=== PATIENT | male | born 1995 | race Caucasian/White ===

== ENCOUNTER 2018-06-18 15:30 | Outpatient (REF) | payer SELFPAY | END 2018-06-18 15:31 | LOC: OM 15:30 | PROVIDERS: Visit Provider Nurse Practitioner Family | DX: Z23 Encounter for immunization (principal) ==

== ENCOUNTER 2019-01-28 17:13 | Emergency (ER) | payer OTHER, SELFPAY ==
[2019-01-28 17:20] VITALS: BP 150/76; PULSE 92; RESP 12; TEMP 36.9; O2SAT 98
--- NOTE | 2019-01-28 18:26 | ED.GENADUL_ITS ---
Discharge Plan Disposition Patient Disposition: HOME Condition: Stable Discharge Details Chief Complaint: Orthopedic Clinical Impression: Knee sprain Primary Care Provider: None,None ED Provider: Abhijit Grayson Home Meds and New Rx's Prescriptions: No Action No Known Home Meds RF: 0 Discharge Instructions Instructions: Knee Sprain (ED) Additional Instructions: 1. Drink plenty of fluids. 2. Continue all medications as prescribed. 3. Acetaminophen 1000mg every 4 hours (up to 5 time a day) and/or ibuprofen 600mg every 6 hours as needed for fever or pain. 4. Activity as tolerated. Ice and elevate when resting Return to the Emergency Department (ED) if your condition worsens, does not improve as expected, or for ANY other concerns. Specifically, return if you have new or uncontrolled pain, worsening fever, difficulty breathing, vomiting, or are unable to drink fluids. Referrals: Dwayne Spear MD [ [facility] STAFF PHYSICIAN] - Discharge Data Discharge Date/Time-TO BE ENTERED AT DEPARTURE: 01/28/19 17:38 Medical Decision Making Presents with new onset left knee pain associated with known previous knee problems. Onset not associate with any atypical motion or trauma. Exam suggestive of an inflammatory process with no evidence of ligamentous laxity, erythema, knee effusion, or bony deformity. Discussed conservative management with activity as tolerated, ice/elevation, and anti-inflammatories. Given an orthopedic referral for reevaluation as needed. Pt evaluated immediately prior to discharge with improved symptoms, normal vital signs, and tolerating PO. The patient feels appropriate for discharge home. Discussed clinical/diagnostic findings. Discharged with a clear plan for outpatient follow up. Given usual and customary return instructions prior to discharge. Medical Records Medical records reviewed: Yes I reviewed the patient's medical records. HPI 23-year-old gentleman with an unremarkable past medical does note that he has had chronic knee problems with bad knee tracking. Presents with increased left knee pain which started today while he was at work. Notices subjective pain and difficulty with full extension of his knee and localizes pain from this to his patellar region. He denies any atypical twisting motions or trauma. He is noted no significant redness, swelling, or subjective fever. Denies any other arthralgias. General Date/Time Provider Initiated Documentation: 01/28/19 17:22 . Related Data Home Medications Medication Instructions Recorded Confirmed Unknown [No Known Home Meds] 01/28/19 01/28/19 Allergies Allergy/AdvReac Type Severity Reaction Status Date / Time No Known Allergies Allergy Verified 01/28/19 17:23 General Stated Complaint: Orthopedic SEEMA: 4 Review of Systems Review of Systems All systems reviewed & are unremarkable except as noted in HPI and below Constitutional Denies fever(s) and Denies night sweats Cardiovascular Denies dyspnea Respiratory Denies dyspnea Musculoskeletal Reports arthralgias (Left knee), Denies joint swelling and Reports limited range of motion PFSH Social History Smoking/Tobacco Use Status: Never Drug use: Never Substance use type: does not use Do you feel safe at home: Yes Do you feel safe in your relationship?: Yes Exam Narrative Exam Narrative: Nursing note and vital signs have been reviewed and noted. GENERAL: alert, active, no acute distress, well -hydrated, well-nourished HEENT: atraumatic/normocephalic, PERRLA, EOMI, conjunctiva clear, external ears/canals normal, nasal mucosa normal NECK: supple, full range of motion CARDIOVASCULAR: nl pulses, no edema PULMONARY: nl effort, no audible wheezing or stridor ABDOMEN: non-distended EXTREMITY: normal muscle tone, all joints with FROM, left knee: No erythema, effusion, or edema appreciated. No LCL or MCL laxity, pain, or tenderness with valgus and varus deformity. Negative anterior drawer. Has prepatellar tenderness and subjective tenderness over the patella tendon. Normal peripheral neurovascular. NUERO: normal mentation, moving all extremities, normal stance and gait, PSYCH: alert and oriented SKIN: no new rashes or lesions Course Vital Signs Temperature 98.4 F 01/28/19 17:20 Pulse 92 H 01/28/19 17:20 Respiratory Rate 12 01/28/19 17:20 Blood Pressure 150/76 H 01/28/19 17:20 Pulse Oximetry 98 01/28/19 17:20 Temperature 98.4 F 01/28/19 17:20 Temperature Source Temporal Artery Scan 01/28/19 17:20 Pulse 92 H 01/28/19 17:20 Respiratory Rate 12 01/28/19 17:20 Respiratory Effort Non-Labored 01/28/19 17:22 Blood Pressure 150/76 H 01/28/19 17:20 Blood Pressure Position Sitting 01/28/19 17:20 Pulse Oximetry 98 01/28/19 17:20 Oxygen Delivery Method Room Air 01/28/19 17:20 Oxygen Flow Rate 0 01/28/19 17:20 Pain Level 5 01/28/19 17:37
== END 2019-01-28 17:38 | disposition home or self-care (01) ==
LOC: ER 17:42
PROVIDERS: Emergency Provider Emergency Medicine
DX: S83.92XA Sprain of unspecified site of left knee, initial encounter (principal); X58.XXXA Exposure to other specified factors, initial encounter
CPT/HCPCS: 99282

== ENCOUNTER 2019-06-05 21:37 | Emergency (ER) | payer OTHER, SELFPAY ==
[2019-06-05 21:42] VITALS: BP 148/80; PULSE 86; RESP 16; TEMP 36.8; O2SAT 99
--- NOTE | 2019-06-05 21:45 | ED.GENADUL_ITS ---
Discharge Plan Disposition Patient Disposition: HOME Condition: Stable Discharge Details Chief Complaint: GenMedical Clinical Impression: Right shoulder pain, Peripheral neuropathy Primary Care Provider: None,None ED Provider: Debbi Bolaños Home Meds and New Rx's Prescriptions: New ibuprofen 600 mg tablet 600 mg PO Q8H PRN (Reason: pain) Qty: 20 RF: 0 Discharge Instructions Instructions: Peripheral Neuropathy (ED), Shoulder Pain (ED) Additional Instructions: Rest and ice your right shoulder as much as possible. Take your right shoulder through gentle range of motion exercises to help with mobility. Limit heavy lifting, carrying, pushing or pulling. You will receive a call from care management regarding a follow-up appointment with a primary care doctor and for referral to orthopedics or for physical therapy if your symptoms do not improve or worsen. Return to the emergency department if you develop any worsening or new concerning symptoms. Discharge Data Discharge Physician: Debbi Bolaños Medical Decision Making 23-year-old male who presents with right shoulder pain for the past few days, worse today now with right arm tingling, pain and sensation of coolness. Denies any known injury. Patient is right handed. Denies any complaint of headache, blurry vision, other extremity weakness or numbness. Patient has tenderness to palpation of his right anterior lateral shoulder with limitation of motion in right shoulder which produces pain. He is neurovascul elvi intact. He has good motor strength in his right upper extremity which appears symmetric to the left but does reproduce pain but with no perceived motor or sensory deficit. Appears likely consistent with a shoulder strain, sprain, tendinitis, arthritis which is causing likely a peripheral neuropathy. Do not see any indication for imaging at this time and patient is agreeable. Patient has not taken anything for pain. Dose of Motrin given here as well as prescription for home. He was placed on care management list to arrange for a follow-up appointment for reevaluation and for referral to physical therapy or orthopedics if his symptoms do not improve or worsen. HPI General Mode of arrival: ambulatory . Date/Time Provider Initiated Documentation: 06/05/19 21:38 . Limitations to Documentation: no limitations . Information obtained by: patient . 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 He states he is right-handed. He denies any known injury. He denies headache, blurry vision, chest pain, shortness of breath. He does admit to intermittent neck pain but denies any known neck injury. He states he has not taken anything for pain. 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 Related Data Home Medications Medication Instructions Recorded Confirmed ibuprofen 600 mg PO Q8H PRN #20 tab 06/05/19 Previous Rx's Medication Instructions Recorded ibuprofen 600 mg PO Q8H PRN #20 tab 06/05/19 Allergies Allergy/AdvReac Type Severity Reaction Status Date / Time No Known Allergies Allergy Verified 06/05/19 21:46 General SEEMA: 4 Review of Systems Review of Systems All systems reviewed & are unremarkable except as noted in HPI and below Constitutional Reports as per HPI, Denies chills and Denies fever(s) Eyes Denies blurry vision ENT Denies dizziness, Denies sore throat and Denies throat swelling Cardiovascular Denies chest pain and Denies dyspnea Respiratory Denies cough and Denies dyspnea Gastrointestinal Denies abdominal pain, Denies diarrhea and Denies vomiting Genitourinary Denies hematuria and Denies dysuria Musculoskeletal Denies back pain, Denies numbness, Reports tingling and Reports other (R shoulder pain ) Integumentary/Breasts Denies lesions and Denies rash Neurologic Denies dizziness, Denies focal weakness, Denies numbness and Reports tingling Allergic/Immunologic Denies throat swelling [facility] Medical History No significant past medical history (Acute) Surgical History Bilateral femoral hernia (Acute) Social History Smoking/Tobacco Use Status: Never Alcohol Intake: current Alcohol Intake frequency: holidays/special occasions only Drug use: Occasionally Substance use type: does not use and marijuana Do you feel safe at home: Yes Do you feel safe in your relationship?: Yes Exam Const General: cooperative, healthy appearing and no acute distress HENMT Head: normal to inspection Face and sinus: normal facial exam Eyes General: appearance normal, both eyes and all related structures EOM: EOM intact bilaterally Neck Neck: normal visual inspection and No submandibular swelling Lymphatic: no lymphadenopathy noted Chest Chest: normal inspection of the chest and no tenderness Resp Effort & Inspection: normal respiratory effort and able to speak in complete sentences Auscultation: clear to auscultation bilaterally Cardio Rate: regular rate Rhythm: regular rhythm GI Inspection: normal to inspection Palpation: soft, not firm, not rigid and nontender Auscultation: normal bowel sounds Skin General skin exam: no rashes or lesions noted Neuro General: alert, awake, oriented x3, moves all extremities and no focal motor deficits Cognition: normal cognition Speech: speech normal Motor: muscle tone normal throughout and strength 5/5 throughout Sensory Exam: no sensory deficits noted DTR's: Rt Triceps: 1+, Lt Triceps: 1+, Rt Biceps: 1+, Lt Biceps: 1+, Rt Brachioradialis: 1+ and Lt Brachioradialis: 1+ Other: Motor/sensory grossly intact bilateral upper extremities. 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 Muscle strength 5/5 bilateral upper extremities. Radial/ulnar/median motor nerve function intact bilaterally. Extrem General: normal capillary refill Other: Right upper extremity held close to body. Tenderness to palpation right anterior and lateral shoulder. Limitation of flexion and abduction in right shoulder due to pain to 60 degrees. Essentially normal internal and external rotation but with reproducible pain. Normal right elbow, wrist and hand exam. Skin normal to inspection bilateral upper extremities without cyanosis, erythema, edema, lesions, rash or trauma. Bilateral radial and ulnar pulses intact. Psych Appearance: grossly normal Mental Status: mental status grossly normal Speech and Movement: speech and movement normal Affect: normal affect
[2019-06-05 21:50] VITALS: RESP 16
[2019-06-05] MEDS: Ibuprofen 600 MG TAB PO (22:07)
[2019-06-05 22:14] VITALS: BP 148/80; PULSE 86; RESP 16; TEMP 36.8; O2SAT 99
== END 2019-06-05 22:15 | disposition home or self-care (01) ==
PROVIDERS: Emergency Provider Physician Assistant
DX: M25.511 Pain in right shoulder (principal); G62.9 Polyneuropathy, unspecified
CPT/HCPCS: 99282; 99283

== ENCOUNTER 2019-07-21 16:56 | Emergency (ER) | payer OTHER, SELFPAY ==
--- NOTE | 2019-07-21 16:59 | NUR.NOTE ---
Nursing Note:pt developed a sore throat Saturday morning since then sore throat has progressed to the point where PT states it is painful to breath. pt is also having difficulty swallowing
[2019-07-21 17:00] VITALS: BP 154/87; PULSE 88; RESP 16; TEMP 36.8; O2SAT 98
--- NOTE | 2019-07-21 17:44 | W.ED.GENAD ---
Discharge Plan Disposition Patient Disposition: HOME Condition: Stable Discharge Details Chief Complaint: Sorethroat Clinical Impression: Pharyngitis, Acute bronchospasm Primary Care Provider: Edel Abdalla ED Provider: Debbi Bolaños Home Meds and New Rx's Prescriptions: New prednisone 20 mg tablet See Rx Instructions .ROUTE .COMPLEX Qty: 12 RF: 0 No Action cholecalciferol (vitamin D3) 4,000 unit capsule 4,000 unit PO DAILY RF: 0 loratadine [Claritin] 10 mg tablet 10 mg PO DAILY PRNRF: 0 ibuprofen 600 mg tablet 600 mg PO Q8H PRN (Reason: pain) Qty: 20 RF: 0 Discharge Instructions Instructions: Pharyngitis (ED), Bronchospasm (ED) Additional Instructions: Alternate Tylenol and Motrin as needed and directed for pain. Use the inhaler as needed and directed for shortness of breath or wheezing. Take the steroids until finished. Follow-up with your primary care doctor in 1 week for reevaluation. Return to the emergency department if you develop any worsening or new concerning symptoms. Discharge Data Discharge Date/Time-TO BE ENTERED AT DEPARTURE: 07/21/19 19:15 Discharge Physician: Debbi Bolaños Medical Decision Making 24-year-old male who presents with sore throat, painful swallowing and difficulty breathing due to his sore throat for the past 2 days. Denies fever, cough, chest pain headache or neck pain. Vitals within normal limits. Afebrile. Rapid strep negative. Posterior pharyngeal erythema but no exudates or tonsillar edema or evidence of abscess. No drooling or trismus. He has scattered wheezing on lung exam but this appears to be possibly due to noisy breathing or upper airway. He has no evidence of stridor and is speaking in full sentences. Will give a DuoNeb, dose of prednisone and ibuprofen and reassess. As he has no fever and appears nontoxic, do not see an indication for chest x-ray and patient agreeable. Patient feels much better after DuoNeb and meds. He feels better to go back to work here. He was given prescription for prednisone and an albuterol inhaler to go. Discussed that his symptoms could be viral in nature, but if he develops fever or his symptoms worsen, he is advised to follow-up with his primary care doctor or return to the emergency department for reevaluation and to consider chest x-ray at that time and whether he needs antibiotics if he symptoms worsen. He is in agreement with this plan. HPI General Mode of arrival: ambulatory. Date/Time Provider Initiated Documentation: 07/21/19 17:28. Limitations to Documentation: no limitations. Information obtained by: patient. HPI Narrative: Patient is a 24-year-old male who presents with sore throat for the past 2 days. He states it is painful to swallow and breathe due to the sore throat pain. He denies any known fever, headache, neck pain, cough. He has not taken any medication for his symptoms. He also admits to nasal congestion starting short while ago. 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 Related Data Home Medications Medication Instructions Recorded Confirmed ibuprofen 600 mg PO Q8H PRN #20 tab 06/05/19 07/21/19 cholecalciferol (vitamin D3) 4,000 4,000 unit PO DAILY 07/03/19 07/21/19 unit capsule loratadine 10 mg tablet 10 mg PO DAILY PRN 07/20/19 07/21/19 prednisone See Rx Instructions .ROUTE 07/21/19 .COMPLEX #12 tab Previous Rx's Medication Instructions Recorded ibuprofen 600 mg PO Q8H PRN #20 tab 06/05/19 prednisone See Rx Instructions .ROUTE 07/21/19 .COMPLEX #12 tab Allergies Allergy/AdvReac Type Severity Reaction Status Date / Time diphenhydramine AdvReac confusion Verified 07/21/19 17:02 [From Benadryl] General Stated Complaint: Sorethroat SEEMA: 4 Review of Systems Review of Systems All systems reviewed & are unremarkable except as noted in HPI and below Constitutional Reports as per HPI, Denies chills and Denies fever(s) Eyes Denies blurry vision ENT Denies dizziness, Reports sore throat and Denies throat swelling Cardiovascular Denies chest pain and Denies dyspnea Respiratory Denies cough and Denies dyspnea Gastrointestinal Denies abdominal pain, Denies diarrhea and Denies vomiting Genitourinary Denies hematuria and Denies dysuria Musculoskeletal Denies back pain and Denies numbness Integumentary/Breasts Denies lesions and Denies rash Neurologic Denies dizziness, Denies focal weakness and Denies numbness Allergic/Immunologic Denies throat swelling PFSH Medical History History of bipolar disorder (Acute) No significant past medical history (Acute) Right shoulder pain (Acute) Surgical History Bilateral femoral hernia (Acute) Family History Mother Anxiety Father Anxiety Paternal Grandfather Lung cancer Social History (Updated 07/20/19 @ 14:53 by Lucero King RN) Smoking/Tobacco Use Status: Never Alcohol Intake: current Alcohol Intake frequency: a few times a month Alcohol type: beer and hard liquor Drug use: Daily Substance use type: marijuana Household members: none Housing: apartment 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 [employer] Do you feel safe at home: Yes Do you feel safe in your relationship?: Yes Exam Const General: cooperative, healthy appearing and no acute distress HENMT Head: normal to inspection Ears: hearing grossly normal bilaterally, external ears normal and TM's normal bilaterally General nose exam: external nose normal Face and sinus: normal facial exam Mouth: oral mucosae normal Throat: uvula midline, no peritonsillar masses and posterior oropharynx abnormal edema and erythema; no exudates Eyes General: appearance normal, both eyes and all related structures EOM: EOM intact bilaterally Neck Neck: normal visual inspection and No submandibular swelling Lymphatic: no lymphadenopathy noted Chest Chest: normal inspection of the chest and no tenderness Resp Effort & Inspection: normal respiratory effort and able to speak in complete sentences Auscultation: wheezes scattered wheezes Cardio Rate: regular rate Rhythm: regular rhythm Skin General skin exam: no rashes or lesions noted Neuro General: alert, awake and oriented x3 Cognition: normal cognition Speech: speech normal Motor: muscle tone normal throughout Sensory Exam: no sensory deficits noted Extrem General: normal to inspection, full ROM, normal capillary refill, no calf tenderness bilaterally and no edema Psych Appearance: grossly normal Mental Status: mental status grossly normal Speech and Movement: speech and movement normal Affect: normal affect Course Vital Signs Temperature 98.2 F 07/21/19 17:00 Pulse 88 07/21/19 17:00 Respiratory Rate 16 07/21/19 17:00 Blood Pressure 154/87 H 07/21/19 17:00 Pulse Oximetry 98 07/21/19 17:00 Temperature 98.2 F 07/21/19 17:00 Temperature Source Skin 07/21/19 17:00 Pulse 88 07/21/19 17:00 Respiratory Rate 16 07/21/19 17:00 Respiratory Effort 07/21/19 17:02 Blood Pressure 154/87 H 07/21/19 17:00 Blood Pressure Position Sitting 07/21/19 17:00 Pulse Oximetry 98 07/21/19 17:00 Oxygen Delivery Method Room Air 07/21/19 17:00 Oxygen Flow Rate 0 07/21/19 17:00 Pain Level 6 07/21/19 17:00 Lab/Test Results Lab/Test Results: 07/21/19 17:07 Tonsil - Not Specified Streptococcus Screen (ELMO) - Pending POC Strep Test-MIRIAN(Rapid) Start: 07/21/19 17:03 Freq: .Rapid Strep Test Status: Active Protocol: Document 07/21/19 17:36 (Rec: 07/21/19 17:36 [id number]) Strep test-MIRIAN(Rapid)-POC POC-Strep test-MIRIAN (Rapid) Negative POC-Strep test-MIRIAN (Rapid) Negative
[2019-07-21] MEDS: Albuterol/Ipratropium 3 ML UPD VIAL UPD (18:00)
[2019-07-21] MEDS: predniSONE 20 MG TAB 60 MG PO (18:01)
[2019-07-21] MEDS: Ibuprofen 600 MG TAB PO (18:01)
[2019-07-21] MEDS: Albuterol HFA 8 GM 60 PUFF INH IH (19:19)
[2019-07-21 19:21] VITALS: BP 154/87; PULSE 88; RESP 16; TEMP 36.8; O2SAT 98
== END 2019-07-21 19:15 | disposition home or self-care (01) ==
PROVIDERS: Emergency Provider Physician Assistant; PCP Nurse Practitioner
DX: J02.9 Acute pharyngitis, unspecified (principal); J98.01 Acute bronchospasm
CPT/HCPCS: 87880; 94640; 99283; 87081; J7512; J7620

== ENCOUNTER 2019-09-11 08:54 | Outpatient (CLI) | payer OTHER, SELFPAY ==
--- NOTE | 2019-09-14 10:53 | W.HOLTRPT ---
Holter Monitor Report Holter Monitor Note: Is a 24-hour Holter monitor ordered for the indication of presyncope ?The patient was predominantly in normal sinus rhythm with an average heart rate of 85 bpm (minimum 62 bpm, maximum 136 bpm) ?There were no episodes of supraventricular tachycardia. There were rare (less than 1%) premature atrial contractions. ?There were no episodes of ventricular tachycardia. There were rare (less than 1%) single ventricular ectopic beats. ?There were no episodes of atrial fibrillation, no episodes of high degree heart block, and no pauses greater than 3 seconds. ?Patient triggered events were associated with normal sinus rhythm or sinus tachycardia. Date of service: 09/14/19 Time of Service: 10:53
== END 2019-09-11 09:14 ==
PROVIDERS: PCP Nurse Practitioner; Visit Provider Nurse Practitioner
DX: R55 Syncope and collapse (principal); I49.1 Atrial premature depolarization; I49.3 Ventricular premature depolarization
CPT/HCPCS: 93225

== ENCOUNTER 2019-09-14 09:42 | Outpatient (CLI) | payer OTHER, SELFPAY | END 2019-09-14 10:02 | PROVIDERS: PCP Nurse Practitioner; Visit Provider Nurse Practitioner | DX: R55 Syncope and collapse (principal); I49.1 Atrial premature depolarization; I49.3 Ventricular premature depolarization | CPT/HCPCS: 93226 ==

== ENCOUNTER 2019-09-28 01:42 | Outpatient (CLI) | payer OTHER, SELFPAY ==
--- NOTE | 2019-09-28 14:08 | DI.US_ITS ---
APPROVED REPORT EXAM: Comprehensive 2D, Doppler, and color-flow Echocardiogram Patient Location: Out-Patient Manager Personnel Selection: Alannah Bunn [facility] ([place]) Rhythm: NSR Indications: pre syncope and collapse R55. pre syncope Conclusion Left Ventricle : The left ventricle is normal size. The left ventricular systolic function is normal. There is normal left ventricular wall thickness. There is normal LV segmental wall motion. LVEF is 5 5-60%. The left ventricular diastolic function is normal. Right Ventricle : The right ventricle is normal size. The right ventricular systolic function appears normal. Atria : The left atrium size is normal. The right atrium size is normal. Aortic Valve : The aortic valve is normal in structure. Aortic valve is trileaflet. There is no aorti c valvular stenosis. No aortic regurgitation is present. Mitral Valve : Mitral valve leaflets are mildly thickened. No evidence of mitral valve stenosis. Triv ial to mild mitral regurgitation. Tricuspid Valve : The tricuspid valve is normal in structure. Mild tricuspid regurgitation. Great Vessels : IVC is top normal in size and collapses >50% with inspiration. The estimated RVSP is 19-22 mmHg. There is no prior echocardiogram available for comparison. Wall motion Left Ventricle The left ventricle is normal size. The left ventricular systolic function is normal. There is normal left ventricular wall thickness. There is normal LV segmental wall motion. The left ventricular diast olic function is normal. LVEF is 55-60%. Right Ventricle The right ventricle is normal size. The right ventricular systolic function appears normal. Atria The left atrium size is normal. The right atrium size is normal. Aortic Valve The aortic valve is normal in structure. Aortic valve is trileaflet. There is no aortic valvular sten osis. No aortic regurgitation is present. Mitral Valve Mitral valve leaflets are mildly thickened. No evidence of mitral valve stenosis. Trivial to mild mau ral regurgitation. Tricuspid Valve The tricuspid valve is normal in structure. Mild tricuspid regurgitation. Pulmonic Valve Pulmonic valve is not well visualized. Mild pulmonic regurgitation. Great Vessels The aortic root is normal in size. IVC is top normal in size and collapses >50% with inspiration. The estimated RVSP is 19-22 mmHg. Pericardium There is no pericardial effusion. 2D Dimensions IVSd 0.75 cm M: 0.6-1.2 LV EDV A2C 91.30 mL PWd 0.90 cm M: 0.6 - 1.2 LV EDV A4C 89.60 mL LVDd 4.45 cm M: 4.2 - 5.8 LA Volume Index A2C 15.82 mL/m2 LVDs 3.10 cm M: 2.5 - 4.0 LA Volume Index A4C 13.09 mL/m2 Aortic Root 2.60 cm M: 3.1 - 3.7 LA Volume Index Biplane 14.76 mL/m2 RA Area A4C 10.10 cm2 LA Area A4C 11.24 cm2 LVOT 2.00 cm (M/F) 1.5-2.5 LA Area A2C 12.67 cm2 Ascending Aorta 2.58 cm M: 2.6 - 3.4 EF AP4 56.25 % LVEF (Teich) 57.95 % EF AP2 58.05 % LVEF (Sosa's) 58.16 % M: 52 - 72 EF BP 58.16 % LV Volume 69.94 mL M: 62 - 150 LV Volume Index 35.50 mL/m2 M: 34 - 74 FS 30.35 % LV Diastology E/A Ratio 2.5 MED E' 0.14 (>0.07 m/s) LV E/e MED 6.15 (<14) LAT E' 0.16 (>0.1 m/s) LV E/e LAT 5.45 (<14) Aortic Valve LVOT Area 3.17 cm2 LVOT Peak Romulo. 0.95 m/s LVOT Mean Romulo. 0.70 m/s LVOT Peak Gr. 3.75 mmHg MARVA Vmax Index 1.37 cm2/m2 LVOT Mean Gr. 2.15 mmHg LVOT VTI 0.15 m MARVA Mean Romulo. Index 1.35 cm2/m2 AoV Peak Romulo. 1.14 (0.5-1.3 m/s) AoV Mean Romulo. 0.83 m/s AO Peak GR. 5.16 mmHg AO Mean GR. 3.00 (<5 mmHg) AO VTI 0.22 (0.18-0.25 m) MARVA (VTI) 2.68 (2.5-4.5 cm2) MARVA (VTI) Index 1.36 cm/m2 Mitral Valve MV E Max Romulo. 0.88 (0.4-1.3 m/s) MV A Velocity 0.35 (0.4-1.3 m/s) E/A Ratio 2.44 MV Decel. Time 160.75 (160-240 msec) MV PHT 46.62 msec MVA PHT 4.70 cm2 Pulmonary Valve PV Peak Velocity 1.12 (0.5-1.5 m/s) Tricuspid Valve TR P. Velocity 2.18 m/s TV Regurg Vmax 2.18 m/s RAP Estimate 3.00 mmHg RVSP 22.07 mmHg TR P. Gradient 19.05 mmHg
== END 2019-09-28 02:02 ==
PROVIDERS: PCP Nurse Practitioner; Visit Provider Nurse Practitioner
DX: R55 Syncope and collapse (principal); I49.1 Atrial premature depolarization
CPT/HCPCS: 93306

== ENCOUNTER 2020-01-15 13:03 | Emergency (ER) | payer OTHER, SELFPAY ==
[2020-01-15 13:13] VITALS: BP 122/77; PULSE 102; RESP 18; TEMP 36.5; O2SAT 100
[2020-01-15 13:15] VITALS: RESP 18
--- NOTE | 2020-01-15 13:15 | DI.RAD_ITS ---
EXAM: XR CHEST 2V PA LATERAL CLINICAL HISTORY: cough, SOB with running TECHNIQUE: 2D digital imaging was performed. COMPARISON: No exams were available for comparison FINDINGS: MEDIASTINUM: Normal. HEART: Normal. PULMONARY VASCULATURE: Normal. LUNGS: Clear. PLEURAL SPACE: No pleural effusion or pneumothorax. BONE:Normal. OTHER FINDINGS:Normal. IMPRESSION: No acute pulmonary findings. DATA REPOSITORY: RADIATION DOSE DELIVERED:
[2020-01-15] MEDS: Albuterol/Ipratropium 3 ML UPD VIAL 6 ML UPD (13:20)
--- NOTE | 2020-01-15 13:28 | ED.GENADUL_ITS ---
Discharge Plan Disposition Patient Disposition: HOME Condition: Good Discharge Details Chief Complaint: SOB Clinical Impression: Asthma exacerbation Primary Care Provider: Edel Abdalla ED Provider: Boy Badillo Home Meds and New Rx's Prescriptions: No Action cholecalciferol (vitamin D3) 4,000 unit capsule 4,000 unit PO DAILY RF: 0 loratadine [Claritin] 10 mg tablet 10 mg PO DAILY PRNRF: 0 ibuprofen 600 mg tablet 600 mg PO Q8H PRN (Reason: pain) Qty: 20 RF: 0 Discharge Instructions Instructions: Asthma (ED) Additional Instructions: At this time I feel that your symptoms are likely an exacerbation of exercise- induced asthma. Please take 2 puffs from the inhaler as needed every 4-6 hours. Please rest tonight. If you notice any worsening of your symptoms, or any new symptoms such as vomiting, diarrhea, fever, chills, shortness of breath, chest pain, numbness, weakness, or fainting , please return immediately to the emergency department for reevaluation. Please follow up with your primary care provider as soon as possible for reassessment and reevaluation. As always, it wa s a pleasure participating in your medical care today. Referrals: Edel Abdalla, VALERY [Primary Care Provider] - Medical Decision Making <Boy Badillo DO - Last Filed: 01/15/20 15:41> This is a 24-year-old male with a past medical history of what he suspects to be undiagnosed asthma, no other significant medical problems who does not smoke tobacco but does smoke marijuana, who presents today for burning in his chest mild shortness of breath with mild cough. Patient was running the [employer] did a ride race outside of [facility], making tables, while during the race and right after the running activity he became short of breath, with mild chest tightness, and felt the burning in his chest. He states that this is similar to what is happened before during exercise and activity, especially outside. He came to the ER for further evaluation. He states in the past breathing treatments have helped his symptoms. He denies any hemoptysis, fever, chills, numbness, tingling, weakness. He denies any trauma, or IV or illicit drug use. Physical exam demonstrates minimal wheeze in the left lower lung field. Bedside ultrasound shows no evidence of pneumothorax, no pericardial effusion, or focal abnormality for cardiac movement. EKG shows no evidence of STEMI. No signs of Brugada syndrome, or [id number]. Symptoms inconsistent with STEMI, or pericarditis. No clinical risk factors of endocarditis. Symptoms appear consistent with his previous episodes of what appears to be exercise-induced reactive airway disease. We will give breathing treatments, GI cocktail. We will get a formal chest x-ray. EKG 13: 20 Rate 87, intervals normal, sinus rhythm, no significant ST elevations or depres sions, no T wave inversions except for V1, no evidence of STEMI, no evidence of significant delta wave, or evidence of Brugada syndrome. No signs of epsilon wave. <Debbi Boalños DO - Last Filed: 01/15/20 13:57> I did not see or participate in the care of this patient. HPI <Boy Badillo DO - Last Filed: 01/15/20 15:41> General Date/Time Provider Initiated Documentation: 01/15/20 13:03 . HPI Narrative: T his is a 24-year-old male with a past medical history of what he suspects to be undiagnosed asthma, no other significant medical problems who does not smoke tobacco but does smoke marijuana, who presents today for burning in his chest mild shortness of breath with mild cough. Patient was running the I did a ride race outside of [facility], making tables, while during the race and right after the running activity he became short of breath, with mild chest tightness, and felt the burning in his chest. He states that this is similar to what is happened before during exercise and activity, especially outside. He came to the ER for further evaluation. He states in the past breathing treatments have helped his symptoms. He denies any hemoptysis, fever, chills, numbness, tingling, weakness. He denies any trauma, or IV or illicit drug use. Related Data Home Medications Medication Instructions Recorded Confirmed ibuprofen 600 mg PO Q8H PRN #20 tab 06/05/19 01/15/20 cholecalciferol (vitamin D3) 4,000 4,000 unit PO DAILY 07/03/19 01/15/20 unit capsule loratadine 10 mg tablet 10 mg PO DAILY PRN 07/20/19 01/15/20 Previous Rx's Medication Instructions Recorded ibuprofen 600 mg PO Q8H PRN #20 tab 06/05/19 Allergies Allergy/AdvReac Type Severity Reaction Status Date / Time diphenhydramine AdvReac confusion Verified 01/15/20 13:19 [From Benadryl] General Stated Complaint: SOB SEEMA: 3 Review of Systems <Boy Badillo DO - Last Filed: 01/15/20 15:41> All systems reviewed & are unremarkable except as noted in HPI and below PFSH <Boy Badillo DO - Last Filed: 01/15/20 15:41> Surgical History Bilateral femoral hernia (Acute) Social History (Updated 09/07/19 @ 15:24 by Mee Irvin RN) Smoking/Tobacco Use Status: Never Alcohol Intake: current Alcohol Intake frequency: holidays/special occasions only Alcohol type: beer and hard liquor Drug use: Daily Substance use type: marijuana Caregiver/Support person: No Household members: none Housing: apartment Communication Needs: None 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 3.ENT: Atraumatic external nose and ears. Moist MM. Neck: Symmetric, trachea midline, No thyromegaly. 4.CVS: +S1/S2, No murmurs or gallops. Peripheral pulses 2+ and equal in all extremities. Brisk capillary refill in all extremities. 5.RESP: Unlabored respiratory effort. No rales or rhonchi, minimal small wheeze noted in the left lower lung cook. 6.GI: Soft, Nontender/Nondistended, No hepatosplenomegaly. No guarding or rebou nd. 7.MSK: Normocephalic/Atraumatic, Extremities w/o deformity or ttp No cyanosis or clubbing, Normal movement of all extremities 8.Skin: Warm, Dry. No rashes or lesions. 9.Neuro: shuttler car II-XII grossly intact. Sensation grossly intact, no focal neurologic deficits. 10.Psych: (AAO) x3. Appropriate mood and affect Course <Boy Badillo, DO - Last Filed: 01/15/20 15:41> Vital Signs Vital signs: Vital Signs Temperature 36.5 C 01/15/20 13:13 Pulse 102 H 01/15/20 13:13 Respiratory Rate 18 01/15/20 13:13 Blood Pressure 122/77 01/15/20 13:13 Pulse Oximetry 100 01/15/20 13:13 Temperature 36.5 C 01/15/20 13:13 Temperature Source Temporal Artery Scan 01/15/20 13:13 Pulse 102 H 01/15/20 13:13 Respiratory Rate 18 01/15/20 13:15 Respiratory Effort 01/15/20 13:15 Respiratory Depth Normal 01/15/20 13:15 Respiratory Pattern Normal 01/15/20 13:15 Blood Pressure 122/77 01/15/20 13:13 Blood Pressure Position Sitting 01/15/20 13:13 Pulse Oximetry 100 01/15/20 13:13 Oxygen Delivery Method Room Air 01/15/20 13:13 Oxygen Flow Rate 0 01/15/20 13:13
[2020-01-15] MEDS: Albuterol HFA 8 GM 60 PUFF INH IH (16:05)
== END 2020-01-15 16:06 | disposition home or self-care (01) ==
PROVIDERS: Emergency Provider Student in an Organized Health Care Education/Training Program; PCP Nurse Practitioner
DX: J45.901 Unspecified asthma with (acute) exacerbation (principal)
CPT/HCPCS: 93005; 94640; 99284; 71046; 93010; J7620

== ENCOUNTER 2020-08-24 23:07 | Emergency (ER) | payer OTHER, SELFPAY ==
[2020-08-24 23:16] VITALS: BP 144/83; PULSE 89; RESP 20; TEMP 36.5; O2SAT 96
--- NOTE | 2020-08-24 23:24 | ED.GENADUL_ITS ---
Discharge Plan Disposition Patient Disposition: HOME Condition: Stable Discharge Details Clinical Impression: Sprain of right shoulder Primary Care Provider: Edel Abdalla ED Provider: Bakari Key Home Meds and New Rx's Prescriptions: Continued hydroxyzine HCl 25 mg tablet 25 mg PO QHS PRN (Reason: nausea and vomiting) Qty: 30 RF: 0 propranolol 10 mg tablet 10 mg PO BID Qty: 180 RF: 3 cholecalciferol (vitamin D3) 4,000 unit capsule 4,000 unit PO DAILY RF: 0 loratadine [Claritin] 10 mg tablet 10 mg PO DAILY PRNRF: 0 albuterol sulfate 90 mcg/actuation HFA aerosol inhaler 2 puff IH Q6H PRNRF: 0 sumatriptan succinate 100 mg tablet See Rx Instructions PO .COMPLEX Qty: 9 RF: 3 ibuprofen 600 mg tablet 600 mg PO Q8H PRN (Reason: pain) Qty: 20 RF: 0 Discharge Instructions Instructions: Shoulder Pain (ED) Additional Instructions: if pain continues in a week follow up with your primary care provider and orthopedics if you have severe worsening pain or new symptoms such as difficulty breathing return to the emergency department Medical Decision Making 25 yo male who states he has had chronic problems with his right shoulder was reaching up with the right arm tonight and felt a pop in the right shoulder. Denies falling or other injuries, has pain only in the right shoulder. His shoulder appears symmetrical to the left, is able to range in all directions to about 90 degrees then limited by pain but I am able to passively fully range the shoulder, normal distal pulses, no warmth or redness or other findings to suggest septic joint. Suspect either strain vs rotator cuff injury unlikely dislocation or fx but will obtain xray to further evaluate xray negative for acute findings, remains stable, suspect sprain will d/c and advised f/u with pcp and return precautions given Differential Diagnosis Differential Diagnosis: strain, sprain, dislocation Imaging Data Radiologic Study: Attestation: I personally reviewed and interpreted this imaging study as follows: Imaging: X-Ray My impression: no acute findings HPI General Mode of arrival: ambulatory . Date/Time Provider Initiated Documentation: 08/24/20 23:12 . Limitations to Documentation: no limitations . Information obtained by: patient . History of Present Illness 25 year old M presents to the emergency department with the chief complaint of right shoulder pain, described as moderate, and it has been constant. Rest improves symptom(s), Movement worsens symptoms . Patient notes no other symptoms.. Patient did receive the following treatments prior to arrival, none Related Data Home Medications Medication Instructions Recorded Confirmed ibuprofen 600 mg PO Q8H PRN #20 tab 06/05/19 05/05/20 cholecalciferol (vitamin D3) 100 4,000 unit PO DAILY 07/03/19 05/05/20 mcg (4,000 unit) capsule loratadine 10 mg tablet 10 mg PO DAILY PRN 07/20/19 05/05/20 hydroxyzine HCl 25 mg tablet 25 mg PO QHS PRN #30 tab 01/18/20 05/05/20 albuterol sulfate 90 mcg/actuation 2 puff IH Q6H PRN 03/09/20 05/05/20 aerosol inhaler sumatriptan succinate 100 mg tablet See Rx Instructions PO .COMPLEX #9 03/09/20 05/05/20 tab propranolol 10 mg tablet 10 mg PO BID #180 tab 05/05/20 05/05/20 Previous Rx's Medication Instructions Recorded ibuprofen 600 mg PO Q8H PRN #20 tab 06/05/19 hydroxyzine HCl 25 mg tablet 25 mg PO QHS PRN #30 tab 01/18/20 sumatriptan succinate 100 mg tablet See Rx Instructions PO .COMPLEX #9 03/09/20 tab propranolol 10 mg tablet 10 mg PO BID #180 tab 05/05/20 Allergies Allergy/AdvReac Type Severity Reaction Status Date / Time diphenhydramine AdvReac confusion Verified 01/18/20 12:33 [From Benadryl] General Stated Complaint: Orthopedic SEEMA: 4 Review of Systems All systems reviewed & are unremarkable except as noted in HPI and below Constitutional Constitutional: Denies chills, Denies fever(s) and Denies weakness Cardiovascular Cardiovascular: Denies chest pain and Denies dyspnea Respiratory Respiratory: Denies dyspnea Gastrointestinal Gastrointestinal: Denies abdominal pain, Denies nausea and Denies vomiting Musculoskeletal Musculoskeletal: Denies joint swelling Neurologic Neurologic: Denies weakness [facility] Medical History (Updated 08/24/20 @ 23:50 by Bakari Key MD) Asthma new dx January 2020 History of bipolar disorder Insomnia Migraine headache with aura No significant past medical history Right shoulder pain Surgical History S/P bilateral inguinal hernia repair Family History Mother Anxiety Migraine COPD (chronic obstructive pulmonary disease) Father Anxiety Paternal Grandfather Lung cancer Social History Smoking/Tobacco Use Status: Never Alcohol Intake: current Alcohol Intake frequency: holidays/special occasions only Alcohol type: beer and hard liquor Drug use: Daily Substance use type: marijuana Caregiver/Support person: No Household members: none Housing: apartment Communication Needs: None 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 [employer] Seatbelt use: always Water heater temp set <120 deg: Yes Working smoke detector in home: Yes Fire extinguisher in home: Yes Carbon monox detector in home: Yes Firearms in home: No Do you feel safe at home: Yes Do you feel safe in your relationship?: Yes Exam Const General: no acute distress Orientation: alert HENMT Head: normal to inspection Ears: external ears normal General nose exam: external nose normal Mouth: moist mucous membranes Eyes General: appearance normal, both eyes and all related structures Neck Neck: normal visual inspection Resp Effort & Inspection: normal respiratory effort and able to speak in complete sentences Cardio Rate: regular rate Skin General skin exam: no rashes or lesions noted Neuro General: patient alert and patient oriented x3 Extrem General: normal to inspection Psych Mental Status: mental status grossly normal Course Vital Signs Vital signs: Vital Signs Temperature 36.5 C 08/24/20 23:16 Pulse 89 08/24/20 23:16 Respiratory Rate 08/24/20 23:16 Blood Pressure 144/83 H 08/24/20 23:16 Pulse Oximetry 96 08/24/20 23:16 Temperature 36.5 C 08/24/20 23:16 Temperature Source Tympanic 08/24/20 23:16 Pulse 89 08/24/20 23:16 Respiratory Rate 20 08/24/20 23:16 Respiratory Effort 08/24/20 23:20 Blood Pressure 144/83 H 08/24/20 23:16 Pulse Oximetry 96 08/24/20 23:16 Oxygen Delivery Method Room Air 08/24/20 23:16 Oxygen Flow Rate 0 08/24/20 23:16 Pain Level 3 08/24/20 23:20
[2020-08-24] MEDS: Acetaminophen 500 MG TAB 1000 MG PO (23:26)
--- NOTE | 2020-08-24 23:35 | DI.RAD_ITS ---
EXAM: XR SHOULDER RT COMPLETE 2+V CLINICAL HISTORY: right shoulder pain. TECHNIQUE: 2D digital imaging was performed. COMPARISON: No exams were available for comparison FINDINGS: BONES: No acute fracture is present. No bony destructive lesion is seen. JOINTS: No dislocation present. SOFT TISSUE: Normal. IMPRESSION: Unremarkable radiographs of the right shoulder. DATA REPOSITORY: RADIATION DOSE DELIVERED:
--- NOTE | 2020-08-25 16:04 | DI.VRAD_ITS ---
PROCEDURE INFORMATION: Exam: XR Right Shoulder Exam date and time: 08/24/2020 11:32 PM Age: 25 years old Clinical indication: Patient HX: Pain in right shoulder x6 hours after raising arm anteriorly TECHNIQUE: Imaging protocol: XR Right shoulder. Views: 2 or more views. COMPARISON: No relevant prior studies available. FINDINGS: Bones/joints: No acute fracture. No dislocation. Soft tissues: Unremarkable. IMPRESSION: No acute osseous abnormality. Dictated and Authenticated by: Hernesto Sauer MD. Ordering:HANNA Villegas MD
== END 2020-08-25 00:10 | disposition home or self-care (01) ==
PROVIDERS: Emergency Provider Emergency Medicine; PCP Nurse Practitioner
DX: S43.491A Other sprain of right shoulder joint, initial encounter (principal); X50.1XXA Overexertion from prolonged static or awkward postures, initial encounter
CPT/HCPCS: 99283; 73030; L3650

== ENCOUNTER 2020-11-01 13:29 | Outpatient (CLI) | payer OTHER, SELFPAY ==
[2020-11-02 09:54] LABS: Lyme Ab w Rflx to Lyme Confirm Negative (Negative)
[2020-11-03 23:52] LABS: Anaplasma phagocytophilum Negative (Negative); B. miyamotoi PCR Negative (Negative); Babesia divergens/MO-1 Negative (Negative); Babesia duncani Negative (Negative); Babesia microti Negative (Negative); Ehrlichia chaffeensis Negative (Negative); Ehrlichia ewingii/canis Negative (Negative); Ehrlichia muris eauclairensis Negative (Negative)
== END 2020-11-01 13:49 ==
PROVIDERS: PCP Nurse Practitioner; Visit Provider Nurse Practitioner
DX: R53.83 Other fatigue (principal); M25.59 Pain in other specified joint
CPT/HCPCS: 87798; 86618

== ENCOUNTER 2020-11-28 02:12 | Outpatient (CLI) | payer OTHER, SELFPAY ==
[2020-11-29 12:38] LABS: COVID-19 RT-PCR UVMMC Result Negative (Negative)
== END 2020-11-28 02:32 ==
PROVIDERS: PCP Nurse Practitioner; Visit Provider Student in an Organized Health Care Education/Training Program
DX: Z11.52 Encounter for screening for COVID-19 (principal); Z01.818 Encounter for other preprocedural examination
CPT/HCPCS: U0003

== ENCOUNTER 2020-12-01 06:08 | Day surgery (SDC) | payer OTHER, SELFPAY ==
[2020-12-01] VITALS (9 sets, daily range): BP systolic 87–114; BP diastolic 38–72; PULSE 67–84; RESP 14–18; TEMP 36.5–37; O2SAT 95–98
[2020-12-01] MEDS: Lactated Ringers 1,000 ML 100 ML IV ×3 (07:26→11:15)
--- NOTE | 2020-12-01 07:26 | ROE_ITS ---
Date of service: 12/01/20 Time of Service: 08:00 Operative Note Operative Note DATE OF PROCEDURE: 12/01/20 PRE-OP DIAGNOSIS: Right shoulder: 1. SLAP tear 2. LHB tendinopathy 3. Bursitis 4. Instability POST-OP DIAGNOSIS: same PROCEDURE: Right: 1. Anterior labral capsulorrhaphy, CPT# 58720. This involved anterior stabilization through suture anchors of the capsule low labral ligamentous complex involving the AIGHL and MGHL. 2. Open biceps tenodesis, CPT# 00011. This involved reattaching the long head of the biceps tendon to the proximal humerus in the sub-pectoral area of the bic ipital groove at the correct tension. 3. Extensive debridement, CPT# 84494. This involved using arthroscopic hand instruments, power instruments, and radiofrequency instruments to release to release the long head of the biceps tendon and debride areas of labral tearing, synovitis, partial rotator cuff tearing, and chondromalacia about glenoid rim within the glenohumeral joint anteriorly, superiorly and posteriorly. 4. Subacromial decompression with partial acromioplasty, CPT# 79437. This involved using arthroscopic power instruments and a radiofrequency wand to complete a bursectomy and smooth the undersurface of the acromion. The legal executive assistant was medically required in order to help assist in techniques above, which require positioning the arm, holding the arthroscope, and manipulating multiple instruments and sutures at the same time. This cannot be done without the help of an experienced legal executive assistant. SURGEON: Ronen Tamayo FOUNDER CHAIRMAN AND CHIEF CREATIVE OFFICER: Licha Hernandez ANESTHESIA: GETA and regional ESTIMATED BLOOD LOSS: 10 PATHOLOGY: none sent COMPLICATIONS: None Patient was transported to: PACU Patient's condition: stable Implants: Arthrex: 2.9 mm PushLock anchor x2 and Unicortical Proximal Biceps Tenodesis Button Indications: The patient was diagnosed with the above conditions and appropriately indicated for surgical intervention. Please see complete medical record for details. Findings: Exam under anesthesia: Hyper physiologic range of motion. Mild sulcus sign. Forward flexion past 160 degrees, external rotation past 90 degrees, internal rotation 90 degrees. Subluxation especially anteriorly without dislocation. Glenohumeral joint: Moderate synovitis anteriorly and superiorly. Small type 2 SLAP tear. No obvious labral tear anteriorly or posteriorly. Mild long head of biceps tendon inflammation and injection especially about the bicipital groove. No humeral head Hill-Sachs defect. Minimal anterior supraspinatus articular sided fraying. Subacromial space: Moderate bursitis and minimal acromial bone spur. Intact rotator cuff. Procedure Description: In the operating room, general anesthesia was induced. Bilateral shoulders were examined. The patient was positioned in the beachchair position. All bony prominences were well-padded. Preoperative antibiotics were administered. The shoulder was prepped and draped in the usual sterile fashion. The correct patient, procedure, and side of the procedure were all verified prior to incision. Starting through the posterior portal a standard complete diagnostic arthroscopy was performed of the glenohumeral joint including inspection of the long head of the biceps, anterior and superior labrum, subscapularis tendon, supraspinatus and infraspinatus tendons, and axillary recess. The glenoid and humeral head cartilage as well as the posterior labrum were inspected from an anterior viewing portal. Significant findings and interventions noted above. The biceps tendon was released from the superior labrum using arthroscopic scissors. The shoulder was drained of arthroscopic fluid and attention turned to the open procedure. 10 cc of 0.25% bupivacaine with epinephrine was infiltrated about a 2 to 3 cm longitudinal incision at the inferior margin of the pectoralis major localized over the long head of the biceps tendon. Blunt and sharp dissection were used to expose the tendon in the bicipital groove. The tendon was brought out of the wound and kept off the skin on top of a blue towel. The correct location for sub-pectoral fixation was localized, prepped with a rasp, and then drilled with a 3.2 mm drill pin in a unicortical fashion. Using a fiber loop suture the tendon was prepped from the musculotendinous junction a few centimeters proximal. The excess tendon was amputated. The free suture ends were then passed through the unicortical button implant. The drill pin was removed and the implant was placed into the humeral intramedullary canal. The button was flipped and the sutures were tensioned bringing the tendon down to bone. Tension and fixation were then tested and found to be appropriate. The free ends of the suture were were tied compressing tendon to bone. The wound was copiously irrigated with normal saline. Subcutaneous tissue was closed using 3- 0 Monocryl in a buried interrupted fashion. Skin was closed using 3-0 Monocryl in a buried subcuticular running fashion. Skin glue was applied over the incision. Mastisol was applied about the incision. The incision was covered with Telfa, gauze, and covered with a Tegaderm dressing. The arthroscope was then redirected back into the glenohumeral joint. A second lower and more lateral anterior portal was established under spinal needle localization to the anterior inferior glenoid rim passing just superior to the subscapularis tendon. This was dilated and then a 7 mm rigid cannula inserted. Another 7 mm rigid cannula was inserted in the standard anterior higher portal. Using a combination of tissue liberator's and elevators as well as graspers the anterior labrum was probed and found to be stable. The AIGHL mobilized to the planned anterior inferior anchor as well as the MGHL to a more central anterior anchor. Liberator's and elevators were carefully used to dissect the labrum from the glenoid rim just enough for appropriate anchor placement and tissue healing including the capsular labral complex is partial anterior labral plication for the patient's chronic instability. A suture passing lasso was used to secure the AIG HL and capsular tissue about the anterior inferior labrum at the planned site and a suture tape FiberLink in cinch mode secured. The appropriate drill guide was placed on the glenoid rim, predrilled, the suture tape passed through the eyelet of a push lock anchor, and then the anchor secu red down to bone with the correct tension on the tissue. Is repeated more superiorly and centrally including the labrum and [facility] L tissue with a second push lock anchor. The anterior capsulorrhaphy was probed found to be stable. The arm was brought past 75 degrees external rotation with tension especially on the [facility] L repair with the arm in 45 degrees abduction but no loss of tissue fixation or suture anchor securely. The arthroscope was then brought to the anterior portal and a rigid cannula transferred to the posterior portal. The posterior labrum and capsule was inspected and probed. There was not significant additional posterior instability nor significant tissue for additional posterior plication repair so it was omitted. The joint was drained of arthroscopic fluid. Starting through the posterior portal, the arthroscope was directed into the subacromial space. A lateral 50 yard line lateral portal was created. A combination of power instruments and a radiofrequency ablator were used to debride bursitis anteriorly, posteriorly, and laterally as well as expose and smooth bone spurring on the undersurface of the acromion. The coracoacromial ligament was preserved. The bursectomy was completed viewing laterally and working from posteriorly and the rotator cuff was thoroughly inspected with findings noted above. The shoulder was drained of arthroscopic fluid. All portal sites were copiously irrigated. These incisions were closed using 3-0 Monocryl in a buried fashion, covered with Mastisol, Steri-Strips, Xeroform, dry gauze, and ABDs. The dressings were covered and secured with Medipore tape. The operative extremity was placed into a sling for immobilization. The patient awoke from anesthesia without complication and was transferred to the recovery room in a stable condition.
[2020-12-01] MEDS: ceFAZolin 2 GM/50 ML BAG IVPB (08:02)
[2020-12-01] MEDS: Bupivacaine 0.25% Pres-Free 30 ML VIAL (09:49)
[2020-12-01] MEDS: EPINEPHrine 1 MG/ML AMP pres-free (09:49)
[2020-12-01] MEDS: EPINEPHrine 30 MG/30 ML VIAL (09:52)
[2020-12-01] MEDS: oxyCODONE 5 MG TAB PO (13:04)
--- NOTE | 2020-12-01 13:53 | W.PM.DSUDISC ---
Discharge Plan Disposition Patient Disposition: HOME Condition: Stable Discharge Details Reason For Visit: Right shoulder surgery Attending Provider: Ronen Tamayo Primary Care Provider: Edel Abdalla Home Meds and New Rx's Prescriptions: New naproxen 250 mg tablet 250 - 500 mg PO BID PRN (Reason: Moderate pain or swelling) Qty: 60 RF: 0 aspirin 81 mg tablet,delayed release (DR/EC) 81 mg PO DAILY 14 Days Qty: 14 RF: 0 oxycodone 5 mg tablet 5 - 10 mg PO Q4H PRN (Reason: moderate to severe pain) Qty: 16 RF: 0 Continued albuterol sulfate 90 mcg/actuation HFA aerosol inhaler 2 puff IH Q4H PRN (Reason: shortness of breath or wheezing) Qty: 18 RF: 12 hydroxyzine HCl 25 mg tablet 25 mg PO QHS PRN (Reason: nausea and vomiting) Qty: 30 RF: 0 propranolol 10 mg tablet 10 mg PO BID Qty: 180 RF: 3 cholecalciferol (vitamin D3) 4,000 unit capsule 4,000 unit PO DAILY RF: 0 loratadine [Claritin] 10 mg tablet 10 mg PO DAILY PRNRF: 0 sumatriptan succinate 100 mg tablet See Rx Instructions PO .COMPLEX Qty: 9 RF: 3 Discontinued ibuprofen 600 mg tablet 600 mg PO Q8H PRN (Reason: pain) Qty: 20 RF: 0 Discharge Instructions Additional Instructions: Surgery: Shoulder arthroscopy with anterior labral capsulorrhaphy, biceps tenodesis, extensive debridement, and subacromial decompression. Activity: You should keep your arm at your side in a neutral position at all times except for physical therapy. Do not try to lift or raise your arm using your own muscles. You should use the sling whenever you are out of the house. At home it is best to remove the sling and rest the arm on a pillow at your side or support the operative side with your other hand. You may allow the arm to dangle at your side. Please perform daily elbow wrist and hand range of motion. You may use the right arm lightly for essential activities of daily living. A physical therapy prescription will be sent electronically to begin in 3 weeks. Protocol: No external rotation x3 weeks then 30 degrees external rotation weeks 3-6 and then 60 degrees external rotation weeks 6-10 and then full Max forward elevation 90 degrees weeks 0-6 and then 120 degrees week 6-10 and then full Prescriptions: Aspirin 81 mg take 1 daily to prevent a blood clot for 2 weeks Naproxen 250 mg take 1-2 every 12 hours with a meal as needed for moderate pain Oxycodone 5 mg take 1-2 every 4-6 hours as needed for severe pain You may use [id number] Tylenol (acetaminophen) as needed for mild pain. These pain medications may be taken all at once or in different combinations as needed. Also, recommend Colace (docusate) as a stool softener as surgery and pain medicine cause constipation. Dressings: Remove shoulder bandage after 3 days. Leave the sticky Steri-Strips in place until they fall off or remove them after you shower. Cover the incisions with Band-Aids or leave them open to air. The biceps bandage (inside upper arm) is glued on separately. You may leave this one on a few days longer if it is difficult to remove. There is also glue underneath this bandage that can be left in place until it peels off. You may shower after 5 days. Follow-up: 10-[address] Tamayo (12/13/19 at 10AM) You may take off the leg compression stockings this evening at home. You may also leave them on a few days longer if you have a history of leg swelling or edema. Let us know right away if you develop any redness, drainage, fevers, chest pain, or trouble breathing. Do not drink alcohol or drive for at least 24 hours after anesthesia. Please call the office during business hours with any questions or concerns. Stand Alone Forms: Anes.Nerve Block Instructions, DSU Post op Instructions Referrals: Ronen Tamayo MD [ [facility] STAFF PHYSICIAN] - Discharge Orders Discharge Orders: Discharge Order (Routine); Ordered 12/01/20 Ordered By: Ronen Tamayo DS: Diagnosis Discharge Diagnosis (1) Instability of right shoulder joint: Status: Acute (2) Tendonitis of long head of biceps brachii of right shoulder: Status: Acute (3) SLAP lesion of right shoulder: Status: Acute
== END 2020-12-01 14:13 | disposition home or self-care (01) ==
PROVIDERS: PCP Nurse Practitioner; Visit Provider Student in an Organized Health Care Education/Training Program
PROC: (CPT 29805; principal; 2020-12-01 07:30)
DX: M25.311 Other instability, right shoulder (principal); M75.21 Bicipital tendinitis, right shoulder; S43.431A Superior glenoid labrum lesion of right shoulder, initial encounter; M75.81 Other shoulder lesions, right shoulder
CPT/HCPCS: 29806; 29823; 29826; 23430; G8918; 76942; J0171; J0690; J1100; J1885; J2001; J2250; J2370; J2405; J2704

== ENCOUNTER 2021-11-23 22:00 | Emergency (ER) | payer OTHER, SELFPAY ==
[2021-11-23 22:05] VITALS: BP 151/81; PULSE 105; RESP 16; TEMP 37.2; O2SAT 97
--- NOTE | 2021-11-23 22:13 | ED.GENADUL_ITS ---
Discharge Plan Disposition Patient Disposition: HOME Condition: Stable Discharge Details Clinical Impression: Otitis media Primary Care Provider: Edel Abdalla ED Provider: Karen Sepulveda Home Meds and New Rx's Prescriptions: New amoxicillin-pot clavulanate [Augmentin] 875-125 mg tablet 1 tab PO BID 7 Days Qty: 14 RF: 0 No Action hydroxyzine HCl 25 mg tablet 25 mg PO QHS PRN (Reason: nausea and vomiting) Qty: 30 RF: 0 cholecalciferol (vitamin D3) 4,000 unit capsule 4,000 unit PO DAILY RF: 0 loratadine [Claritin] 10 mg tablet 10 mg PO DAILY PRNRF: 0 sumatriptan succinate 100 mg tablet See Rx Instructions PO .COMPLEX Qty: 9 RF: 3 albuterol sulfate 90 mcg/actuation HFA aerosol inhaler 2 puff IH Q4H PRN (Reason: shortness of breath or wheezing) Qty: 18 RF: 12 naproxen 250 mg tablet 250 - 500 mg PO BID PRN (Reason: Moderate pain or swelling) Qty: 60 RF: 0 Discharge Instructions Instructions: Ear Infection (ED) Additional Instructions: Take Flonase daily 1-2 sprays in each nostril. Take an over the counter decongestant as well. Take the antibiotic as prescribed. Please take Tylenol or Ibuprofen with food every 4-6 hours as needed for pain and swelling. Referrals: Edel Abdalla, DEPARTMENT STORE MANAGER [Primary Care Provider] - 1 week Medical Decision Making 26-year-old male presents to the ER with chief complaint of bilateral ear pain right worse than the left which began yesterday. He denies any fever runny nose. He reports feeling a popping sound to his right ear and increased pain. He has been taking Tylenol for the pain with little to no relief. On initial exam he does have some bulging to his bilateral tympanic membranes, and some fluid noted behind. Slightly erythemic. Is a past medical history of asthma, migraine. Given Augmentin here in the department and 2 tablets to go. Discussed home care including taking Flonase and an oral decongestant. Clinical exam does not show significant bilateral otitis media however this could be early. HPI General Mode of arrival: ambulatory . Date/Time Provider Initiated Documentation: 11/23/21 22:03 . Limitations to Documentation: no limitations . Information obtained by: patient and RN notes reviewed . HPI Narrative: 26-year-old male presents to the ER with chief complaint of bilateral ear pain right worse than the left which began yesterday. He denies any fever runny nose. He reports feeling a popping sound to his right ear and increased pain. He has been taking Tylenol for the pain with little to no relief. On initial exam he does have some bulging to his bilateral tympanic membranes, and some fluid noted behind. Slightly erythemic. Is a past medical history of asthma, migraine. Related Data Home Medications Medication Instructions Recorded Confirmed cholecalciferol (vitamin D3) 100 4,000 unit PO DAILY 07/03/19 11/23/21 mcg (4,000 unit) capsule loratadine 10 mg tablet 10 mg PO DAILY PRN 07/20/19 11/23/21 hydroxyzine HCl 25 mg tablet 25 mg PO QHS PRN #30 tab 01/18/20 11/23/21 naproxen 250 - 500 mg PO BID PRN #60 tab 12/01/20 11/23/21 albuterol sulfate 90 mcg/actuation 2 puff IH Q4H PRN #18 g 07/10/21 11/23/21 aerosol inhaler sumatriptan succinate 100 mg tablet See Rx Instructions PO .COMPLEX #9 09/12/21 11/23/21 tab amoxicillin-pot clavulanate 1 tab PO BID 7 Days #14 tab 11/23/21 [Augmentin] Previous Rx's Medication Instructions Recorded hydroxyzine HCl 25 mg tablet 25 mg PO QHS PRN #30 tab 01/18/20 naproxen 250 - 500 mg PO BID PRN #60 tab 12/01/20 albuterol sulfate 90 mcg/actuation 2 puff IH Q4H PRN #18 g 07/10/21 aerosol inhaler sumatriptan succinate 100 mg tablet See Rx Instructions PO .COMPLEX #9 09/12/21 tab amoxicillin-pot clavulanate 1 tab PO BID 7 Days #14 tab 11/23/21 [Augmentin] Allergies Allergy/AdvReac Type Severity Reaction Status Date / Time diphenhydramine AdvReac confusion Verified 11/23/21 22:08 [From Benadryl] General Stated Complaint: EarProblem SEEMA: 5 Review of Systems All systems reviewed & are unremarkable except as noted in HPI and below ENT Ears, Nose, Mouth, and Throat: Reports as per HPI and Reports otalgia PFSH All Active Problems (Updated 11/23/21 @ 22:19 by Karen Sepulveda) Otitis media (Acute) Bilateral knee pain (Acute) Light headed (Acute) Routine general medical examination at a health care facility (Acute) Dizzy spells (Acute) Migraine headache without aura (Acute) Chronic headache (Acute) Encounter for screening for other viral diseases (Acute) SLAP lesion of right shoulder (Acute) Tendonitis of long head of biceps brachii of right shoulder (Acute) Fatigue (Acute) Joint ache (Acute) Instability of right shoulder joint (Acute) Insomnia (Acute) Migraine headache with aura (Acute) History of bipolar disorder (Acute) Medical History Asthma new dx January 2020 History of shingles 10/2020 No significant past medical history Surgical History S/P bilateral inguinal hernia repair Family History Mother Anxiety Migraine COPD (chronic obstructive pulmonary disease) Father Anxiety Paternal Grandfather Lung cancer Social History Smoking/Tobacco Use Status: Never Smoking risk assessment performed?: Yes Alcohol Intake: current Alcohol Intake frequency: holidays/special occasions only Alcohol type: beer and hard liquor Drug use: Daily Substance use type: marijuana Details: pt reports having 11/30/20, via smoke. 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 Appears stated age. Normal body habitus. Head: Normocephalic, no trauma. Eyes: Pupils PERRL, Red reflex noted, EOM's intact. Eyelids symmetrical without lesions, discharge, or swelling. ENT: Bilateral TM's bulging, slightly erythemic external ear normal to inspection, no mastoid TTP, swelling, or erythema, Nasal turbinates WNL, no nasal discharge. Normal dentition, Posterior pharynx WNL, no exudate. Course Vital Signs Vital signs: Vital Signs Temperature 37.2 C 11/23/21 22:05 Pulse 105 H 11/23/21 22:05 Respiratory Rate 16 11/23/21 22:05 Blood Pressure 151/81 H 11/23/21 22:05 Pulse Oximetry 97 11/23/21 22:05 Temperature 37.2 C 11/23/21 22:05 Temperature Source Skin 11/23/21 22:05 Pulse 105 H 11/23/21 22:05 Respiratory Rate 16 11/23/21 22:05 Respiratory Effort Non-Labored 11/23/21 22:10 Blood Pressure 151/81 H 11/23/21 22:05 Blood Pressure Position Sitting 11/23/21 22:05 Pulse Oximetry 97 11/23/21 22:05 Oxygen Delivery Method Room Air 11/23/21 22:05 Oxygen Flow Rate 0 11/23/21 22:05 Pain Level 2 11/23/21 22:05
[2021-11-23] MEDS: Amoxicillin 875/Clav. 125 TAB PO (22:26)
[2021-11-23] MEDS: Amox. 875/Clav. 125, 2 TABS/BTL 1 TAB PO (22:27)
== END 2021-11-23 22:29 | disposition home or self-care (01) ==
PROVIDERS: Emergency Provider Registered Nurse Emergency; PCP Nurse Practitioner
DX: H66.93 Otitis media, unspecified, bilateral (principal)
CPT/HCPCS: 99283

== ENCOUNTER 2022-05-08 15:40 | Outpatient (REF) | payer OTHER, SELFPAY ==
[2022-05-08 14:22] LABS: Calculated LDL 78 mg/dL (<100); Cholesterol 171 mg/dL (<200); HDL Cholesterol 57 mg/dL (40-60); Triglyceride 183 mg/dL (<150)
[2022-05-09 09:40] LABS: Hepatitis C Ab w Rflx HCV PCR Negative (Negative)
[2022-05-09 10:00] LABS: HIV-1/2 Ag & Ab Screen Negative (Negative)
== END 2022-05-08 15:41 | disposition home or self-care (01) ==
LOC: LBN 15:40
PROVIDERS: PCP Nurse Practitioner; Visit Provider Nurse Practitioner
DX: Z13.220 Encounter for screening for lipoid disorders (principal); Z11.59 Encounter for screening for other viral diseases; Z11.4 Encounter for screening for human immunodeficiency virus [HIV]
CPT/HCPCS: 80061; 86803; 87389

== ENCOUNTER 2022-09-05 17:53 | Outpatient (REF) | payer OTHER, SELFPAY ==
[2022-09-05 17:07] LABS: Source Nasal/Nares
[2022-09-05 17:42] LABS: COVID-19 PCR Negative (Negative)
== END 2022-09-05 17:54 | disposition home or self-care (01) ==
LOC: LBN 17:53
PROVIDERS: Family Medicine; PCP Nurse Practitioner; Visit Provider Nurse Practitioner Family
DX: Z20.822 Contact with and (suspected) exposure to COVID-19 (principal)
CPT/HCPCS: 87635

== ENCOUNTER 2023-05-30 13:53 | Emergency (ER) | payer OTHER, SELFPAY ==
[2023-05-30 14:00] VITALS: BP 165/81; PULSE 101; RESP 16; TEMP 37.8; O2SAT 96
--- NOTE | 2023-05-30 14:15 | DI.CT_ITS ---
Exam(s) CT ABDOMEN PELVIS W EXAM: CT ABDOMEN PELVIS W CLINICAL HISTORY: RLQ abd Pain, Fever, R/O APPY TECHNIQUE: Imaging Protocol: Axial computed tomography images with coronal and sagittal reformatted images were created and reviewed CONTRAST MATERIAL: Intravenous: Omnipaque 350 Contrast volume:100 mL Oral: No COMPARISON: No exams were available for comparison FINDINGS: ABDOMEN: Lung Bases: Mild dependent atelectasis. Liver: Normal density. No measurable mass. Portal, Superior Mesenteric, and Splenic Veins: Unremarkable. Gallbladder and Biliary Tract: No radiodense calculus or dilation. Pancreas: Normal density, no abnormal calcifications or inflammatory process. Spleen: Normal. Adrenals: No masses seen. Kidneys: Normal size, contour and axis. No radiodense stones or obstructive uropathy. No masses seen. Abdominal Aorta: Abdominal portion non-dilated. Bowel: No evidence of bowel obstruction. Question of mild thickening of the wall of the distal stoma ch. Appendix is unremarkable. Peritoneal Cavity: No ascites, collection or mesenteric inflammatory response. No free air. Lymph Nodes: Within normal limits. Bones: Within normal limits for the patient's age. There is L5 spondylolysis and grade 1 spondylolis thesis of L5 on S1. Soft Tissues: Unremarkable. PELVIS: Bladder: Symmetric distention, no gross wall thickening. Reproductive Organs: Unremarkable as visualized. Lymph Nodes: Within normal limits. Bones: Within normal limits for the patient's age. IMPRESSION: 1. Normal appendix. 2. No evidence of nephrolithiasis or hydronephrosis. 3. Question of mild thickening of the wall of the distal stomach. This may be due to underdistention . Gastritis cannot be excluded. Please correlate clinically. 4. Findings were discussed with Karen Sepulveda at 3:36 p.m. on 05/30/2023. RADIATION DOSE DELIVERED: Total DLP DATA REPOSITORY: All CT scans at this facility are submitted to the National Radiology Data Registry (NRDR) Dose Index Registry (DIR) with the [employer] ([employer]). RADIATION OPTIMIZATION: All CT scans at this facility use at least one of these dose optimization te chniques: automated exposure control; mA and/or kV adjustment per patient size (includes targeted exa ms where dose is matched to clinical indication); or iterative reconstruction.
[2023-05-30] MEDS: Ondansetron 4 MG/2 ML VIAL IVP (14:34)
[2023-05-30] MEDS: Normal Saline 1,000 ML 1000 ML IV ×2 (14:34→15:45)
[2023-05-30 14:35] LABS: Abs Immature Grans 0.02 10^3/uL (0.0-0.06); Absolute Basophil Count 0.08 10^3/uL (0.0-0.2); Absolute Eosinophil Count 0.06 10^3/uL (0.0-0.7); Absolute Lymphocyte Count 1.23 10^3/uL (1.2-3.4); Absolute Monocyte Count 0.52 10^3/uL (0.1-0.8); Absolute Neutrophil Count 3.99 10^3/uL (1.2-6.7); Basophils % 1.4; HGB 16.1 g/dL (13.5-17.5); Immature Grans % 0.3; Lymphocytes % 20.8; MCH 29.5 pg (27.0-33.0); MCHC 34.3 % (32.0-36.0); MCV 86 fL (80-95); MPV 9.7 fL (8.0-11.0); Monocytes % 8.8; Neutrophils % 67.7; Platelet Count 246 10^3/uL (130-400); RBC 5.46 10^6/uL (4.36-5.78); RDW 11.6 % (11.8-14.1); RDW-SD 36.5 fL
[2023-05-30] MEDS: MORPHine 4 MG/ML SYR IVP (14:35)
--- NOTE | 2023-05-30 14:36 | ED.GENADUL_ITS ---
Discharge Plan Disposition Patient Disposition: Home Condition: Improving Discharge Details Clinical Impression: Abdominal pain Primary Care Provider: Edel Abdalla ED Provider: Fina Hurtado Home Meds and New Rx's Prescriptions: New omeprazole 40 mg capsule,delayed release(DR/EC) 40 mg PO DAILY Qty: 30 0RF Continued hydroxyzine HCl 25 mg tablet 25 mg PO QHS PRN (Reason: nausea and vomiting) Qty: 30 0RF cholecalciferol (vitamin D3) 4,000 unit capsule 4,000 unit PO DAILY loratadine [Claritin] 10 mg tablet 10 mg PO DAILY PRN sumatriptan succinate 100 mg tablet See Rx Instructions PO .COMPLEX Qty: 9 3RF Rx Instructions: take 1 tab at onset of headache; if no relief, may repeat 1 tab after at least 2 hrs; max = 2 tabs/24 hrs PO albuterol sulfate 90 mcg/actuation HFA aerosol inhaler 2 puff IH Q4H PRN (Reason: shortness of breath or wheezing) Qty: 18 12RF naproxen 250 mg tablet 250 - 500 mg PO BID PRN (Reason: Moderate pain or swelling) Qty: 60 0RF Discharge Instructions Instructions: Abdominal Pain (ED) Additional Instructions: Advance diet as tolerated start with clear liquids drinking at least 6 to 8 glasses daily to stay well-hydrated Referrals: Edel Abdalla NP [Primary Care Provider] - Medical Decision Making <Karen Sepulveda NP - Last Filed: 05/30/23 16:28> 27-year-old male presents to the ER with a chief complaint of right lower quadrant abdominal pain which began early this morning. He reports that its gotten worse throughout the day. He reports nausea no vomiting no diarrhea. He is slightly febrile upon arrival. Slightly tachycardic. No history of a bdominal surgeries. He has had an shoulder surgery in the past. Other past medical history includes migraines, bipolar, insomnia. On exam he is tender in the right lower quadrant with palpation. Abdomen work-up ordered including lactate. Lactate is over 2. Liter of normal saline form Zofran for morphine ordered. Urinalysis. CT abdomen pelvis with IV contrast. CBC shows no leukocytosis, no left shift, initial lactate 2.2, CMP within normal limits however glucose 124 total protein 8.3 urinalysis shows urine pH 8.5 no leukocytes no nitrites no blood no evidence of kidney stone. I do suspect appendicitis differential diagnosis includes gastroenteritis, bowel obstruction, UTI. Care is to be handed off to oncoming provider Fina Hurtado AQUATICS INSTRUCTOR pending repeat lactate level after second liter of normal saline and dispo. This text was generated using [employer] system, please disregard any oddities of phrase or misspellings. Medical Records Medical records reviewed: Yes I reviewed the patient's medical records. Lab Data Lab results reviewed: Yes I reviewed the patient's lab results. Labs: Laboratory Tests Range/Units 05/30/23 05/30/23 05/30/23 14:17 14:17 14:17 WBC (4.4-10.8) 10^3/uL 5.90 RBC (4.36-5.78) 10^6/uL 5.46 Hgb (13.5-17.5) g/dL 16.1 Hct (40.0-50.0) % 47.0 MCV (80-95) fL 86 MCH (27.0-33.0) pg 29.5 MCHC (32.0-36.0) % 34.3 RDW (11.8-14.1) % 11.6 L Plt Count (130-400) 10^3/uL 246 MPV (8.0-11.0) fL 9.7 Immature Gran % 0.3 Neutrophils % 67.7 Lymphocytes % 20.8 Monocytes % 8.8 Eosinophils % 1.0 Basophils % 1.4 Nucleated RBC % (0.0-0.3) % 0.0 Absolute Neutrophils (1.2-6.7) 10^3/uL 3.99 Absolute Lymphocytes (1.2-3.4) 10^3/uL 1.23 Absolute Monocytes (0.1-0.8) 10^3/uL 0.52 Absolute Eosinophils (0.0-0.7) 10^3/uL 0.06 Absolute Basophils (0.0-0.2) 10^3/uL 0.08 VBG Lactate (0.6-1.4) mmol/L 2.2 H* Sodium (136-145) mmol/L 142 Potassium (3.5-5.1) mmol/L 3.5 Chloride (98-107) mmol/L 104 Carbon Dioxide (21.0-32.0) mmol/L 28.9 Anion Gap (3-11) mmol/L 9.1 BUN (7-18) mg/dL 11 Creatinine (0.70-1.30) mg/dL 1.1 Est GFR (CKD-EPI 2020) (mL/min/1.73m2) 94.36 Glucose (74-106) mg/dL 124 H Calcium (8.5-10.1) mg/dL 9.6 Magnesium (1.8-2.4) mg/dL 2.1 Total Bilirubin (0.2-1.0) mg/dL 0.6 AST (15-37) U/L 20 ALT (16-63) U/L 28 Alkaline Phosphatase (46-116) U/L 74 Total Protein (6.4-8.2) g/dL 8.3 H Albumin (3.4-5.0) g/dL 4.8 Lipase (16-77) U/L 28 Urine Color (Yellow) Urine Clarity (Clear) Urine pH (5-8) Ur Specific [place] (1.005-1.025) Urine Protein (Negative) mg/dL Urine Ketones (Negative) mg/dL Urine Blood (Negative) Urine Nitrite (Negative) Urine Bilirubin (Negative) Urine Urobilinogen (Up to 0.2) mg/dL Ur Leukocyte Esterase (Negative) Urine Glucose (Negative) mg/dL Range/Units 05/30/23 15:24 WBC (4.4-10.8) 10^3/uL RBC (4.36-5.78) 10^6/uL Hgb (13.5-17.5) g/dL Hct (40.0-50.0) % MCV (80-95) fL MCH (27.0-33.0) pg MCHC (32.0-36.0) % RDW (11.8-14.1) % Plt Count (130-400) 10^3/uL MPV (8.0-11.0) fL Immature Gran % Neutrophils % Lymphocytes % Monocytes % Eosinophils % Basophils % Nucleated RBC % (0.0-0.3) % Absolute Neutrophils (1.2-6.7) 10^3/uL Absolute Lymphocytes (1.2-3.4) 10^3/uL Absolute Monocytes (0.1-0.8) 10^3/uL Absolute Eosinophils (0.0-0.7) 10^3/uL Absolute Basophils (0.0-0.2) 10^3/uL VBG Lactate (0.6-1.4) mmol/L Sodium (136-145) mmol/L Potassium (3.5-5.1) mmol/L Chloride (98-107) mmol/L Carbon Dioxide (21.0-32.0) mmol/L Anion Gap (3-11) mmol/L BUN (7-18) mg/dL Creatinine (0.70-1.30) mg/dL Est GFR (CKD-EPI 2020) (mL/min/1.73m2) Glucose (74-106) mg/dL Calcium (8.5-10.1) mg/dL Magnesium (1.8-2.4) mg/dL Total Bilirubin (0.2-1.0) mg/dL AST (15-37) U/L ALT (16-63) U/L Alkaline Phosphatase (46-116) U/L Total Protein (6.4-8.2) g/dL Albumin (3.4-5.0) g/dL Lipase (16-77) U/L Urine Color (Yellow) Yellow Urine Clarity (Clear) Clear Urine pH (5-8) 8.5 H Ur Specific [place] (1.005-1.025) 1.015 Urine Protein (Negative) mg/dL Negative Urine Ketones (Negative) mg/dL Negative Urine Blood (Negative) Negative Urine Nitrite (Negative) Negative Urine Bilirubin (Negative) Negative Urine Urobilinogen (Up to 0.2) mg/dL 0.2 Ur Leukocyte Esterase (Negative) Negative Urine Glucose (Negative) mg/dL Negative <Fina Hurtado, AQUATICS INSTRUCTOR - Last Filed: 05/30/23 19:27> 27-year-old male presents to the ER with a chief complaint of right lower quadrant abdominal pain which began early this morning. He reports that its gotten worse throughout the day. He reports nausea no vomiting no diarrhea. He is slightly febrile upon arrival. Slightly tachycardic. No history of abdom inal surgeries. He has had an shoulder surgery in the past. Other past medical history includes migraines, bipolar, insomnia. On exam he is tender in the right lower quadrant with palpation. Abdomen work-up ordered including lactate. Lactate is over 2. Liter of normal saline form Zofran for morphine ordered. Urinalysis. CT abdomen pelvis with IV contrast. CBC shows no leukocytosis, no left shift, initial lactate 2.2, CMP within normal limits however glucose 124 total protein 8.3 urinalysis shows urine pH 8.5 no leukocytes no nitrites no blood no evidence of kidney stone. I do suspect appendicitis differential diagnosis includes gastroenteritis, bowel obstruction, UTI. Care is to be handed off to oncoming provider Fina Hurtado AQUATICS INSTRUCTOR pending repeat lactate level after second liter of normal saline and dispo. This text was generated using [employer] dictation system, please disregard any oddities of phrase or misspellings. After 2 L of fluid patient's lactic acid normalized to 0.8. He was given 40 mg of IV Protonix he had improvement in his symptoms and has remained hemodynamically stable he is tolerating p.o. and safe for discharge to home HPI <Karen Sepulveda NP - Last Filed: 05/30/23 16:28> General Mode of arrival: ambulatory . Date/Time Provider Initiated Documentation: 05/30/23 14:22 . Limitations to Documentation: no limitations . Information obtained by: patient, RN notes reviewed and old records reviewed . HPI Narrative: 27-year-old male presents to the ER with a chief complaint of right lower quadrant abdominal pain which began early this morning. He reports that its gotten worse throughout the day. He reports nausea no vomiting no diarrhea. He is slightly febrile upon arrival. Slightly tachycardic. No history of abdominal surgeries. He has had an shoulder surgery in the past. Other past medical history includes migraines, bipolar, insomnia. On exam he is tender in the right lower quadrant with palpation. Related Data Home Medications Medication Instructions Recorded Confirmed cholecalciferol (vitamin D3) 100 4,000 unit PO DAILY 07/03/19 05/30/23 mcg (4,000 unit) capsule loratadine 10 mg tablet (Claritin) 10 mg PO DAILY PRN 07/20/19 05/30/23 hydroxyzine HCl 25 mg tablet 25 mg PO QHS PRN nausea and 01/18/20 05/30/23 vomiting #30 tabs naproxen 250 mg tablet 250 - 500 mg PO BID PRN Moderate 12/01/20 05/30/23 pain or swelling #60 tabs albuterol sulfate 90 mcg/actuation 2 puff inhalation Q4H PRN 07/10/21 05/30/23 aerosol inhaler shortness of breath or wheezing #18 grams sumatriptan succinate 100 mg tablet See Rx Instructions PO .COMPLEX #9 05/07/22 05/30/23 tabs omeprazole 40 mg capsule,delayed 40 mg PO DAILY #30 caps 05/30/23 release Previous Rx's Medication Instructions Recorded hydroxyzine HCl 25 mg tablet 25 mg PO QHS PRN nausea and 01/18/20 vomiting #30 tabs naproxen 250 mg tablet 250 - 500 mg PO BID PRN Moderate 12/01/20 pain or swelling #60 tabs albuterol sulfate 90 mcg/actuation 2 puff inhalation Q4H PRN 07/10/21 aerosol inhaler shortness of breath or wheezing #18 grams sumatriptan succinate 100 mg tablet See Rx Instructions PO .COMPLEX #9 05/07/22 tabs omeprazole 40 mg capsule,delayed 40 mg PO DAILY #30 caps 05/30/23 release Allergies Allergy/AdvReac Type Severity Reaction Status Date / Time diphenhydramine AdvReac confusion Verified 05/30/23 14:02 [From Benadryl] cashews Allergy Intermediate itching Uncoded 05/30/23 14:02 General Stated Complaint: Abd Prob SEEMA: 3 Review of Systems <Karen Sepulveda NP - Last Filed: 05/30/23 16:28> All systems reviewed & are unremarkable except as noted in HPI and below Gastrointestinal Gastrointestinal: Reports abdominal pain, Denies diarrhea, Reports nausea and Denies vomiting PFSH <Karen Sepulveda NP - Last Filed: 05/30/23 16:28> All Active Problems (Updated 05/30/23 @ 18:26 by Fina Hurtado NP) Abdominal pain (Acute) Nicole-Danlos syndrome (Acute) Bilateral knee pain (Acute) Light headed (Acute) Routine general medical examination at a health care facility (Acute) Dizzy spells (Acute) Migraine headache without aura (Acute) Chronic headache (Acute) Encounter for screening for other viral diseases (Acute) SLAP lesion of right shoulder (Acute) Tendonitis of long head of biceps brachii of right shoulder (Acute) Fatigue (Acute) Joint ache (Acute) Instability of right shoulder joint (Acute) Insomnia (Acute) Migraine headache with aura (Acute) History of bipolar disorder (Acute) Medical History Asthma new dx January 2020 History of shingles 10/2020 No significant past medical history Surgical History S/P bilateral inguinal hernia repair Family History Mother Anxiety Migraine COPD (chronic obstructive pulmonary disease) Father Anxiety Paternal Grandfather Lung cancer Social History Smoking/Tobacco Use Status: Never Smoking risk assessment performed?: Yes Alcohol Intake: current Alcohol Intake frequency: holidays/special occasions only Alcohol type: beer and hard liquor Drug use: Daily Substance use type: marijuana Details: pt reports having 11/30/20, via smoke. 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 Appears stated age. Normal body habitus. Head: Normocephalic, no trauma. Eyes: Pupils PERRL, Red reflex noted, EOM's intact. Eyelids symmetrical without lesions, discharge, or swelling. ENT: Bilateral TM's WNL, External ear normal to inspection, no mastoid TTP, swelling, or erythema, Nasal turbinates WNL, no nasal discharge. Normal dentition, Posterior pharynx WNL, no exudate. Chest: RRR, Normal S1, S2, distal pulses intact. Resp: Lungs clear to auscultation bilaterally, no wheezes, rales, or rhonchi. Abdomen: Soft, non-distended, Normoactive bowel sounds all 4 quads. Tenderness over McBurney's point, Musculoskeletal: Normal gait, 5/5 strength to all four extremities. Skin: No suspicious rashes or lesions. Capillary refill less than 2 sec. Neurologic: Cranial nerves II-XII intact. Alert and oriented x 3. Motor: No deficits noted. Sensory: Intact bilaterally all 4 extremities. Reflexes: Hematologic/Lymphatic: No ecchymosis, no lymphadenopathy. Course <Karen Sepulveda NP - Last Filed: 05/30/23 16:28> Vital Signs Vital signs: Vital Signs Temperature 37.8 C H 05/30/23 14:00 Pulse 101 H 05/30/23 14:00 Respiratory Rate 16 05/30/23 14:00 Blood Pressure 165/81 H 05/30/23 14:00 Pulse Oximetry 96 05/30/23 14:00 Temperature 37.8 C H 05/30/23 14:00 Temperature Source Skin 05/30/23 14:00 Pulse 101 H 05/30/23 14:00 Respiratory Rate 16 05/30/23 14:00 Respiratory Effort Normal 05/30/23 14:02 Blood Pressure 165/81 H 05/30/23 14:00 Blood Pressure Position Sitting 05/30/23 14:00 Pulse Oximetry 96 05/30/23 14:00 Oxygen Delivery Method Room Air 05/30/23 14:00 Oxygen Flow Rate 0 05/30/23 14:00 Pain Level 10 05/30/23 14:08 Sign Out <Karen Sepulveda NP - Last Filed: 05/30/23 16:28> Sign Out Data: Sign Out Comment: Pending repeat lactate after second liter of saline infusion. Last updated by Karen Sepulveda NP at 05/30/23 15:43 PAWSS <Karen Sepulveda NP - Last Filed: 05/30/23 16:28> Have you Been Recently Intoxicated or Drunk Within the Last 30 days?: Yes Have you Ever Experienced Previous Episodes of Alcohol Withdrawal?: No Have you ever Experienced Withdrawal Seizures?: No Have you ever Experienced Delirium Tremens(DT)s?: No Have you ever undergone Alcohol Rehabilitation Treatment (i.e, inpt ot outpatient treatment programs)?: No Have you ever Experienced Blackouts?: Yes Have you ever Combined Alcohol with other Downers within the last 90 days?: No Have you ever Combined Alcohol with any other Substance of Abuse during the last 90 days?: No Positive Blood Alcohol level on Presentation? [PCS.BAL]: No Evidence of Increased Autonomic Activity (i.e. HR>120, tremor, sweating, agitation, nausea)?: No Result: 2 <Fina Hurtado NP - Last Filed: 05/30/23 19:27> Result: 2
[2023-05-30 14:38] LABS: Lactate 2.2 mmol/L (0.6-1.4)
[2023-05-30 14:51] LABS: ALT 28 U/L (16-63); AST 20 U/L (15-37); Albumin 4.8 g/dL (3.4-5.0); Alkaline Phosphatase 74 U/L (46-116); Anion Gap 9.1 mmol/L (3-11); BUN 11 mg/dL (7-18); Bilirubin, Total 0.6 mg/dL (0.2-1.0); CO2 28.9 mmol/L (21.0-32.0); CREATININE 1.1 mg/dL (0.70-1.30); Calcium 9.6 mg/dL (8.5-10.1); Chloride 104 mmol/L (98-107); Estimated GFR 94.36 (mL/min/1.73m2); Glucose 124 mg/dL (74-106); Lipase 28 U/L (16-77); Magnesium 2.1 mg/dL (1.8-2.4); Potassium 3.5 mmol/L (3.5-5.1); Sodium 142 mmol/L (136-145); Total Protein 8.3 g/dL (6.4-8.2)
[2023-05-30] MEDS: Normal Saline Flush 10 ML SYR IVP (14:59)
[2023-05-30] MEDS: Normal Saline - Diluent 50 ML VIAL IJ (15:05)
[2023-05-30] MEDS: Omnipaque 350 MG/ML 100 ML BTL IJ (15:05)
[2023-05-30 15:39] LABS: Bilirubin Negative (Negative); Blood Negative (Negative); Clarity Clear (Clear); Glucose Negative (Negative); Ketones Negative (Negative); Leukocyte Esterase Negative (Negative); Nitrite Negative (Negative); Specific Gravity 1.015 (1.005-1.025); Urobilinogen 0.2 mg/dL (Up to 0.2); pH 8.5 (5-8)
[2023-05-30] MEDS: Ketorolac 15 MG/ML VIAL IVP (16:02)
[2023-05-30] MEDS: Pantoprazole 40 MG VIAL IVP (16:02)
[2023-05-30 17:13] LABS: Lactate 0.8 mmol/L (0.6-1.4)
[2023-05-30 18:31] VITALS: BP 129/77; PULSE 79; RESP 15; O2SAT 98
== END 2023-05-30 18:31 | disposition home or self-care (01) ==
PROVIDERS: Registered Nurse Emergency; Emergency Provider Nurse Practitioner Acute Care; PCP Nurse Practitioner
DX: R10.31 Right lower quadrant pain (principal); R11.0 Nausea
CPT/HCPCS: 36415; 80053; 83690; 96361; 96374; 96375; 99285; 74177; 81003; 83605; 83735; 85025; 99283; J1885; J2270; J2405; J3490

== ENCOUNTER 2023-05-31 01:31 | Emergency (ER) | payer OTHER, SELFPAY ==
[2023-05-31] VITALS (23 sets, daily range): BP systolic 122–150; BP diastolic 69–92; PULSE 56–95; RESP 12–24; O2SAT 94–100
--- NOTE | 2023-05-31 01:43 | ED.GENADUL_ITS ---
Discharge Plan Disposition Patient Disposition: Home Condition: Stable Discharge Details Clinical Impression: Abdominal pain Primary Care Provider: Edel Abdalla ED Provider: Bakari Key Home Meds and New Rx's Prescriptions: Continued hydroxyzine HCl 25 mg tablet 25 mg PO QHS PRN (Reason: nausea and vomiting) Qty: 30 0RF cholecalciferol (vitamin D3) 4,000 unit capsule 4,000 unit PO DAILY loratadine [Claritin] 10 mg tablet 10 mg PO DAILY PRN sumatriptan succinate 100 mg tablet See Rx Instructions PO .COMPLEX Qty: 9 3RF Rx Instructions: take 1 tab at onset of headache; if no relief, may repeat 1 tab after at least 2 hrs; max = 2 tabs/24 hrs PO albuterol sulfate 90 mcg/actuation HFA aerosol inhaler 2 puff IH Q4H PRN (Reason: shortness of breath or wheezing) Qty: 18 12RF omeprazole 40 mg capsule,delayed release(DR/EC) 40 mg PO DAILY Qty: 30 0RF naproxen 250 mg tablet 250 - 500 mg PO BID PRN (Reason: Moderate pain or swelling) Qty: 60 0RF Discharge Instructions Additional Instructions: your cat scan and labs did not show concerning findings follow up with your primary care provider if symptoms continue in a week if you feel more ill, have persistent vomiting or high fevers return to the emergency department you can take 1000mg tylenol and 600mg ibuprofen every 6 hours for pain as needed Medical Decision Making 27 yo male comes in with continued right lower abdominal pain. HE states it started yesterday morning when he woke up and came here and discharged yesterday evening after reassuring labs including a CT showing a normal appendix, comes in with continued right lower abdominal pain. He has nausea but no vomiting, normal bowel movements, no urinary symptoms. No fevers. He arrives stable caox4 speaking clearly. He has a soft nondistended abdomen and is tender in the right lower abdomen, no guarding, no left lower abdomen or upper abdominal tenderness, no testicle pain or swelling. Unclear etiology for his continued symptoms with a negative ct within the last 24 hours, could be IBS. Will obtain cbc, cmp, lipase and reassess after analgesics and fluids, if still having pain at that time will consider reimaging. pt still having pain and after discussing risks/benefits he would prefer repeat ct. ct unremarkable, pt stable and has minimal right lower abdomen tenderness, discussed with pt and given reassuring workup feel he is stable for d/c, return precautions given and advised to follow up with pcp Differential Diagnosis Differential Diagnosis: ibs, appendicitis Medical Records Medical records reviewed: Yes I reviewed the patient's medical records. Imaging Data Radiologic Study: Attestation: I personally reviewed and interpreted this imaging study as follows: Imaging: CT Scan Radiologist's impression: no acute findings Lab Data Lab results reviewed: Yes I reviewed the patient's lab results. HPI General Mode of arrival: ambulatory . Date/Time Provider Initiated Documentation: 05/31/23 01:31 . Limitations to Documentation: no limitations . Information obtained by: patient . History of Present Illness 27 year old M presents to the emergency department with the chief complaint of right lower abdominal pain, described as moderate, Quality is described as sharp, and is localized to the abdomen. Patient reports no radiation. Patient started experiencing this day(s) (1) and it has been constant. No relieving factors improve symptom(s), No exacerbating factors reported . Patient notes no other symptoms.. Patient did receive the following treatments prior to arrival, none Related Data Home Medications Medication Instructions Recorded Confirmed cholecalciferol (vitamin D3) 100 4,000 unit PO DAILY 07/03/19 05/31/23 mcg (4,000 unit) capsule loratadine 10 mg tablet (Claritin) 10 mg PO DAILY PRN 07/20/19 05/31/23 hydroxyzine HCl 25 mg tablet 25 mg PO QHS PRN nausea and 01/18/20 05/31/23 vomiting #30 tabs naproxen 250 mg tablet 250 - 500 mg PO BID PRN Moderate 12/01/20 05/31/23 pain or swelling #60 tabs albuterol sulfate 90 mcg/actuation 2 puff inhalation Q4H PRN 07/10/21 05/31/23 aerosol inhaler shortness of breath or wheezing #18 grams sumatriptan succinate 100 mg tablet See Rx Instructions PO .COMPLEX #9 05/07/22 05/31/23 tabs omeprazole 40 mg capsule,delayed 40 mg PO DAILY #30 caps 05/30/23 05/31/23 release Previous Rx's Medication Instructions Recorded hydroxyzine HCl 25 mg tablet 25 mg PO QHS PRN nausea and 01/18/20 vomiting #30 tabs naproxen 250 mg tablet 250 - 500 mg PO BID PRN Moderate 12/01/20 pain or swelling #60 tabs albuterol sulfate 90 mcg/actuation 2 puff inhalation Q4H PRN 07/10/21 aerosol inhaler shortness of breath or wheezing #18 grams sumatriptan succinate 100 mg tablet See Rx Instructions PO .COMPLEX #9 05/07/22 tabs omeprazole 40 mg capsule,delayed 40 mg PO DAILY #30 caps 05/30/23 release Allergies Allergy/AdvReac Type Severity Reaction Status Date / Time diphenhydramine AdvReac confusion Verified 05/31/23 01:38 [From Benadryl] cashews Allergy Intermediate itching Uncoded 05/31/23 01:38 General Stated Complaint: Abd Prob SEEMA: 3 Review of Systems All systems reviewed & are unremarkable except as noted in HPI and below Constitutional Constitutional: Denies chills, Denies fever(s) and Denies weakness Cardiovascular Cardiovascular: Denies chest pain and Denies dyspnea Respiratory Respiratory: Denies cough and Denies dyspnea Gastrointestinal Gastrointestinal: Denies vomiting Genitourinary Genitourinary: Denies dysuria Integumentary/Breasts Skin/Breast: Denies rash Neurologic Neurologic: Denies weakness PFSH All Active Problems (Updated 05/31/23 @ 03:54 by Bakari Key MD) Abdominal pain (Acute) Nicole-Danlos syndrome (Acute) Bilateral knee pain (Acute) Light headed (Acute) Routine general medical examination at a health care facility (Acute) Dizzy spells (Acute) Migraine headache without aura (Acute) Chronic headache (Acute) Encounter for screening for other viral diseases (Acute) SLAP lesion of right shoulder (Acute) Tendonitis of long head of biceps brachii of right shoulder (Acute) Fatigue (Acute) Joint ache (Acute) Instability of right shoulder joint (Acute) Insomnia (Acute) Migraine headache with aura (Acute) History of bipolar disorder (Acute) Medical History Asthma new dx January 2020 History of shingles 10/2020 No significant past medical history Surgical History S/P bilateral inguinal hernia repair Family History Mother Anxiety Migraine COPD (chronic obstructive pulmonary disease) Father Anxiety Paternal Grandfather Lung cancer Social History Smoking/Tobacco Use Status: Never Smoking risk assessment performed?: Yes Alcohol Intake: current Alcohol Intake frequency: holidays/special occasions only Alcohol type: beer and hard liquor Drug use: Daily Substance use type: marijuana Details: pt reports having 11/30/20, via smoke. 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 Current 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: male What type of physical activity do you participate in: other Details: PT Frequency: 3-4 times per week Seatbelt use: always Water heater temp set <120 deg: Yes Working smoke detector in home: Yes Fire extinguisher in home: Yes Carbon monox detector in home: Yes Firearms in home: No Do you feel safe at home: Yes Do you feel safe in your relationship?: Yes Exam Const General: no acute distress Orientation: alert HENMT Head: normal to inspection Ears: external ears normal General nose exam: external nose normal Mouth: moist mucous membranes Eyes General: appearance normal, both eyes and all related structures Neck Neck: normal visual inspection Resp Effort & Inspection: normal respiratory effort and able to speak in complete sentences Cardio Rate: regular rate GI Palpation: soft and tender Skin General skin exam: no rashes or lesions noted Neuro General: patient alert and patient oriented x3 Extrem General: normal to inspection Psych Mental Status: mental status grossly normal Course Vital Signs Vital signs: Vital Signs Pulse 82 05/31/23 01:33 Respiratory Rate 15 05/31/23 01:33 Blood Pressure 150/92 H 05/31/23 01:33 Pulse Oximetry 100 05/31/23 01:33 Pulse 82 05/31/23 01:33 Respiratory Rate 15 05/31/23 01:33 Blood Pressure 150/92 H 05/31/23 01:33 Blood Pressure Position Sitting 05/31/23 01:33 Pulse Oximetry 100 05/31/23 01:33 Oxygen Delivery Method Room Air 05/31/23 01:33 Oxygen Flow Rate 0 05/31/23 01:33 Pain Level 8 05/31/23 01:38
[2023-05-31 01:49] LABS: Abs Immature Grans 0.06 10^3/uL (0.0-0.06); Absolute Lymphocyte Count 2.62 10^3/uL (1.2-3.4); Absolute Monocyte Count 0.63 10^3/uL (0.1-0.8); Basophils % 1.1; Eosinophils % 1.1; HCT 45.6 % (40.0-50.0); HGB 15.5 g/dL (13.5-17.5); Immature Grans % 0.6; Lymphocytes % 27.8; MCH 29.5 pg (27.0-33.0); MCV 87 fL (80-95); MPV 9.7 fL (8.0-11.0); Monocytes % 6.7; Neutrophils % 62.7; Platelet Count 249 10^3/uL (130-400); RBC 5.26 10^6/uL (4.36-5.78); RDW 11.6 % (11.8-14.1); RDW-SD 37.1 fL; WBC 9.41 10^3/uL (4.4-10.8)
[2023-05-31] MEDS: Droperidol 5 MG/2 ML VIAL 2.5 MG IVP (01:57)
[2023-05-31] MEDS: Normal Saline 1,000 ML 1000 ML IV (01:58)
[2023-05-31] MEDS: Ketorolac 15 MG/ML VIAL IVP (01:58)
[2023-05-31 02:06] LABS: ALT 26 U/L (16-63); AST 20 U/L (15-37); Albumin 4.5 g/dL (3.4-5.0); Alkaline Phosphatase 65 U/L (46-116); Anion Gap 10.6 mmol/L (3-11); BUN 9 mg/dL (7-18); Bilirubin, Total 0.7 mg/dL (0.2-1.0); CO2 27.4 mmol/L (21.0-32.0); CREATININE 1.1 mg/dL (0.70-1.30); Calcium 8.9 mg/dL (8.5-10.1); Chloride 104 mmol/L (98-107); Estimated GFR 94.36 (mL/min/1.73m2); Glucose 95 mg/dL (74-106); Lipase 36 U/L (16-77); Magnesium 1.9 mg/dL (1.8-2.4); Potassium 3.3 mmol/L (3.5-5.1); Sodium 142 mmol/L (136-145); Total Protein 7.7 g/dL (6.4-8.2)
--- NOTE | 2023-05-31 02:30 | DI.CT_ITS ---
Exam(s) CT ABDOMEN PELVIS CTA EXAM: CT ABDOMEN PELVIS CTA CLINICAL HISTORY: right sided abdominal pain, ?mesenteric ischemia. TECHNIQUE: Imaging Protocol: Axial CT angiography was performed with multi-slice acquisition and m ulti-planar and/or 3D reconstructions. CONTRAST MATERIAL: Intravenous: Omnipaque 350 Contrast volume:structured data in ml Oral: yes / COMPARISON: CT CT ABDOMEN PELVIS W from 05/30/2023 FINDINGS: Vascular Structures: Celiac [place]/SMA: No evidence of stenosis. Renal Arteries: No evidence of stenosis. There is a single renal artery perfusing each kidney. Aorta: No aneurysm. No dissection. Pelvis: Iliac Arteries: No evidence of stenosis. Common Femoral Arteries: No evidence of stenosis. Soft Tissues: Lung bases:Normal. Liver: Normal density. No measurable mass. Gallbladder and biliary tract: No radiodense calculus or dilation. Pancreas: Normal density, no abnormal calcifications or inflammatory process. Spleen: Normal. Kidneys: Normal size, contour and axis. No radiodense stones or obstructive uropathy. No masses seen. Adrenal glands: No masses seen. Bladder: Symmetric distention, no gross wall thickening. Bowel: No obstruction or bowel wall thickening. Peritoneal cavity: No ascites, collection or mesenteric inflammatory response. Bones: L5 spondylolysis and mild L5-S1 spondylolisthesis, unchanged. Lymph nodes: Within normal limits. Metallic coils again noted in left pelvis. IMPRESSION: Normal CT Angiogram of the Abdomen. RADIATION DOSE DELIVERED: Total DLP DATA REPOSITORY: All CT scans at this facility are submitted to the National Radiology Data Registry (NRDR) Dose Index Registry (DIR) with the [employer] (ACR). RADIATION OPTIMIZATION: All CT scans at this facility use at least one of these dose optimization te chniques: automated exposure control; mA and/or kV adjustment per patient size (includes targeted exa ms where dose is matched to clinical indication); or iterative reconstruction.
[2023-05-31] MEDS: Omnipaque 350 MG/ML 100 ML BTL IJ (03:01)
[2023-05-31] MEDS: Normal Saline - Diluent 50 ML VIAL IJ (03:07)
--- NOTE | 2023-05-31 03:35 | DI.VRAD_ITS ---
PROCEDURE INFORMATION: Exam: CTA Abdomen and Pelvis With Contrast Exam date and time: 05/31/2023 3:00 AM Age: 27 years old Clinical indication: Abdominal pain; Localized; Right upper quadrant (ruq); Prior surgery; Surgery date: 6+ months; Surgery type: PT states surgery as an infant; Additional info: Right sided abdominal pain, ? mesenteric ischemia TECHNIQUE: Imaging protocol: Computed tomographic angiography of the abdomen and pelvis with contrast. Exam focused on the arteries. 3D rendering (Not supervised by radiologist): MIP and/or 3D reconstructed images were created by the technologist. Radiation optimization: All CT scans at this facility use at least one of these dose optimization techniques: automated exposure control; mA and/or kV adjustment per patient size (includes targeted exams where dose is matched to clinical indication); or iterative reconstruction. Contrast material: OMNI 350; Contrast volume: 100 ml; Contrast route: INTRAVENOUS (IV); COMPARISON: CT ABDOMEN PELVIS W 05/30/2023 3:09 PM FINDINGS: Aorta: No aortic aneurysm. No aortic dissection. Celiac trunk and mesenteric arteries: No occlusion or significant stenosis. Renal arteries: No occlusion or significant stenosis. Right iliac arteries: No occlusion or significant stenosis. Left iliac arteries: No occlusion or significant stenosis. Liver: No mass. Gallbladder and bile ducts: Unremarkable. No calcified stones. No ductal dilation. Pancreas: Unremarkable. No mass. No ductal dilation. Spleen: Unremarkable. No splenomegaly. Adrenal glands: Unremarkable. No mass. Kidneys and ureters: Unremarkable. No solid mass. No hydronephrosis. Stomach and bowel: Unremarkable. No obstruction. No mucosal thickening. Appendix: No evidence of appendicitis. Intraperitoneal space: Unremarkable. No free air. No significant fluid collection. Lymph nodes: Unremarkable. No enlarged lymph nodes. Urinary bladder: Unremarkable. No mass. Reproductive: Unremarkable as visualized. Bones/joints: No acute fracture. Soft tissues: Unremarkable. IMPRESSION: Unremarkable CTA. Dictated and Authenticated by: Bakari Johnson MD. Ordering:HANNA Villegas MD
[2023-05-31 03:57] LABS: Bilirubin Negative (Negative); Blood Negative (Negative); Clarity Clear (Clear); Glucose Negative (Negative); Ketones Trace mg/dL (Negative); Leukocyte Esterase Negative (Negative); Nitrite Negative (Negative); Urobilinogen 0.2 mg/dL (Up to 0.2); pH 6.5 (5-8)
== END 2023-05-31 03:59 | disposition home or self-care (01) ==
PROVIDERS: Emergency Provider Emergency Medicine; PCP Nurse Practitioner
DX: R10.31 Right lower quadrant pain (principal)
CPT/HCPCS: 80053; 83690; 96360; 96361; 99285; 74174; 81003; 83735; 85025; 99284; J1790; J1885; J3490

== ENCOUNTER 2023-06-17 14:14 | Outpatient (CLI) | payer OTHER, SELFPAY ==
[2023-06-17 09:43] LABS: ESR < 1 mm/hr (0-15)
[2023-06-18 10:56] LABS: Lyme Ab w Rflx to Lyme Confirm Negative (Negative)
[2023-06-20 07:55] LABS: Anaplasma phagocytophilum Negative (Negative); B. miyamotoi PCR Negative (Negative); Babesia divergens/MO-1 Negative (Negative); Babesia duncani Negative (Negative); Babesia microti Negative (Negative); Ehrlichia chaffeensis Negative (Negative); Ehrlichia ewingii/canis Negative (Negative); Ehrlichia muris eauclairensis Negative (Negative)
== END 2023-06-17 14:15 | disposition home or self-care (01) ==
LOC: LBO 14:16
PROVIDERS: PCP Nurse Practitioner; Visit Provider Nurse Practitioner
DX: M25.50 Pain in unspecified joint (principal); R53.83 Other fatigue
CPT/HCPCS: 36415; 85652; 87798; 86618

== ENCOUNTER 2023-06-29 13:29 | Emergency (ER) | payer OTHER, SELFPAY ==
[2023-06-29 13:35] VITALS: BP 132/80; PULSE 105; RESP 18; TEMP 37.2; O2SAT 99
--- NOTE | 2023-06-29 13:51 | W.ED.GENAD ---
Discharge Plan Disposition Patient Disposition: Psychiatric Hospital/Unit Specific Psychiatric Facility: [facility] Condition: Stable Discharge Details Chief Complaint: PsychEval Clinical Impression: Bipolar 1 disorder Primary Care Provider: Edel Abdalla ED Provider: Rui Huynh Home Meds and New Rx's Prescriptions: No Action hydroxyzine HCl 25 mg tablet 25 mg PO QHS PRN (Reason: nausea and vomiting) Qty: 30 0RF cholecalciferol (vitamin D3) 4,000 unit capsule 4,000 unit PO DAILY loratadine [Claritin] 10 mg tablet 10 mg PO DAILY PRN sumatriptan succinate 100 mg tablet See Rx Instructions PO .COMPLEX Qty: 9 3RF Rx Instructions: take 1 tab at onset of headache; if no relief, may repeat 1 tab after at least 2 hrs; max = 2 tabs/24 hrs PO albuterol sulfate 90 mcg/actuation HFA aerosol inhaler 2 puff IH Q4H PRN (Reason: shortness of breath or wheezing) Qty: 18 12RF naproxen 250 mg tablet 250 - 500 mg PO BID PRN (Reason: Moderate pain or swelling) Qty: 60 0RF Medical Decision Making 27-year-old male history of bipolar disorder, medicated approximately 10 years ago on lithium, has been off meds, endorses recent psychosocial stressors, worsening anxiety, psychomotor agitation insomnia racing thoughts and intermittent SI without definitive plan. Lives alone but has good friend and family support. Hemodynamically stable although mildly tachycardic, evidence of psychomotor agitation, however alert, cooperative linear and nonviolent. Denies visual or auditory hallucination. No evidence of intoxication trauma or infection. Will obtain screening labs, urine tox, benzodiazepine for anxiolysis. Will reach out to [facility] human services for initial psychiatric screening consider inpatient management given degree of symptoms versus home with safety plan and medication 19: 01 [facility]. Doc to doc signout has been given to Dr. Weeks the accepting physician. HPI General Date/Time Provider Initiated Documentation: 06/29/23 13:30. HPI Narrative: 27-year-old male history of bipolar disorder was on lithium approximately 10 years ago has not been on any medication since, recently registered to begin psychotherapy, has felt increased restlessness, poor sleep, racing thoughts has had SI without definitive plan. Lives alone but has good friend and family support. Related Data Home Medications Medication Instructions Recorded Confirmed cholecalciferol (vitamin D3) 100 4,000 unit PO DAILY 07/03/19 06/29/23 mcg (4,000 unit) capsule loratadine 10 mg tablet (Claritin) 10 mg PO DAILY PRN 07/20/19 06/17/23 hydroxyzine HCl 25 mg tablet 25 mg PO QHS PRN nausea and 01/18/20 06/29/23 vomiting #30 tabs naproxen 250 mg tablet 250 - 500 mg PO BID PRN Moderate 12/01/20 06/29/23 pain or swelling #60 tabs albuterol sulfate 90 mcg/actuation 2 puff inhalation Q4H PRN 07/10/21 06/29/23 aerosol inhaler shortness of breath or wheezing #18 grams sumatriptan succinate 100 mg tablet See Rx Instructions PO .COMPLEX #9 05/07/22 06/29/23 tabs Previous Rx's Medication Instructions Recorded hydroxyzine HCl 25 mg tablet 25 mg PO QHS PRN nausea and 01/18/20 vomiting #30 tabs naproxen 250 mg tablet 250 - 500 mg PO BID PRN Moderate 12/01/20 pain or swelling #60 tabs albuterol sulfate 90 mcg/actuation 2 puff inhalation Q4H PRN 07/10/21 aerosol inhaler shortness of breath or wheezing #18 grams sumatriptan succinate 100 mg tablet See Rx Instructions PO .COMPLEX #9 05/07/22 tabs Allergies Allergy/AdvReac Type Severity Reaction Status Date / Time diphenhydramine AdvReac confusion Verified 06/17/23 08:38 [From Benadryl] cashews Allergy Intermediate itching Uncoded 06/17/23 08:38 General Stated Complaint: PsychEval SEEMA: 2 Review of Systems Narrative: Review of Systems Constitutional: negative Eyes: negative ENT: negative Cardiovascular: negative Respiratory: negative Gastrointestinal: negative : negative Musculoskeletal: negative Skin: negative Neurologic: negative Psych: Anxiety, racing thoughts, insomnia, SI PFSH All Active Problems (Updated 06/29/23 @ 19:03 by Rui Huynh MD) Bipolar 1 disorder (Acute) Abdominal pain (Acute) Nicole-Danlos syndrome (Acute) Bilateral knee pain (Acute) Light headed (Acute) Routine general medical examination at a health care facility (Acute) Dizzy spells (Acute) Migraine headache without aura (Acute) Chronic headache (Acute) Encounter for screening for other viral diseases (Acute) SLAP lesion of right shoulder (Acute) Tendonitis of long head of biceps brachii of right shoulder (Acute) Fatigue (Acute) Joint ache (Acute) Instability of right shoulder joint (Acute) Insomnia (Acute) Migraine headache with aura (Acute) History of bipolar disorder (Acute) Medical History Asthma new dx January 2020 History of shingles 10/2020 No significant past medical history Surgical History S/P bilateral inguinal hernia repair Family History Mother Anxiety Migraine COPD (chronic obstructive pulmonary disease) Father Anxiety Paternal Grandfather Lung cancer Social History Smoking/Tobacco Use Status: Never Smoking risk assessment performed?: Yes Alcohol Intake: current Alcohol Intake frequency: holidays/special occasions only Alcohol type: beer and hard liquor Drug use: Occasionally Substance use type: marijuana Caregiver/Support person: No Household members: none Housing: apartment Number of Children: 0 Communication Needs: None and Corrective Lenses 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 Current 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: male What type of physical activity do you participate in: other Details: PT Frequency: 3-4 times per week Seatbelt use: always Water heater temp set <120 deg: Yes Working smoke detector in home: Yes Fire extinguisher in home: Yes Carbon monox detector in home: Yes Firearms in home: No Do you feel safe at home: Yes Do you feel safe in your relationship?: Yes Exam Narrative Exam Narrative: Physical Examination General: alert, awake, cooperative HEENT: normocephalic, atraumatic; PERRL, EOM intact, conjunctiva normal; no nasal discharge; moist mucous membranes, oral and pharyngeal mucosa normal, tolerating secretions Neck: supple, trachea midline; full ROM Chest: normal to inspection Respiratory: normal respiratory effort, speaking in full sentences Cardiac: Tachycardia, regular rhythm, S1S2 intact, no murmurs rubs or gallops GI: abdomen soft, non-tender, non-distended; no palpable mass or hepatosplenomegaly Skin: no lesions, rashes or trauma appreciated Neuro: AAOx3, normal speech, moving all extremities Psych: Anxiety, fast speech, SI; psychomotor agitation Course Vital Signs Vital signs: Vital Signs Temperature 37.2 C 06/29/23 13:35 Pulse 105 H 06/29/23 13:35 Respiratory Rate 18 06/29/23 13:35 Blood Pressure 132/80 06/29/23 13:35 Pulse Oximetry 99 06/29/23 13:35 Temperature 37.2 C 06/29/23 13:35 Temperature Source Oral 06/29/23 13:35 Pulse 105 H 06/29/23 13:35 Respiratory Rate 18 06/29/23 13:35 Respiratory Effort Normal, Non-Labored 06/29/23 13:46 Blood Pressure 132/80 06/29/23 13:35 Blood Pressure Position Sitting 06/29/23 13:35 Pulse Oximetry 99 06/29/23 13:35 Oxygen Delivery Method Room Air 06/29/23 13:35 Oxygen Flow Rate 0 06/29/23 13:35 Pain Level 0 06/29/23 13:35
[2023-06-29] MEDS: LORazepam 2 MG/ML VIAL 1 MG IVP (14:12)
[2023-06-29 14:17] LABS: Abs Immature Grans 0.04 10^3/uL (0.0-0.06); Absolute Basophil Count 0.05 10^3/uL (0.0-0.2); Absolute Eosinophil Count 0.03 10^3/uL (0.0-0.7); Absolute Lymphocyte Count 0.91 10^3/uL (1.2-3.4); Absolute Monocyte Count 0.53 10^3/uL (0.1-0.8); Absolute Neutrophil Count 6.44 10^3/uL (1.2-6.7); Basophils % 0.6; Eosinophils % 0.4; HCT 49.3 % (40.0-50.0); HGB 16.9 g/dL (13.5-17.5); Immature Grans % 0.5; Lymphocytes % 11.4; MCH 29.2 pg (27.0-33.0); MCHC 34.3 % (32.0-36.0); MCV 85 fL (80-95); MPV 9.6 fL (8.0-11.0); Monocytes % 6.6; Neutrophils % 80.5; Platelet Count 274 10^3/uL (130-400); RBC 5.79 10^6/uL (4.36-5.78); RDW 11.8 % (11.8-14.1); RDW-SD 36.1 fL
[2023-06-29 14:40] LABS: ALT 27 U/L (16-63); AST 16 U/L (15-37); Albumin 4.8 g/dL (3.4-5.0); Alkaline Phosphatase 75 U/L (46-116); Anion Gap 10.4 mmol/L (3-11); BUN 9 mg/dL (7-18); Bilirubin, Total 0.9 mg/dL (0.2-1.0); CO2 29.6 mmol/L (21.0-32.0); CREATININE 0.9 mg/dL (0.70-1.30); Calcium 9.7 mg/dL (8.5-10.1); Chloride 102 mmol/L (98-107); Estimated GFR 120.05 (mL/min/1.73m2); Glucose 111 mg/dL (74-106); Potassium 3.5 mmol/L (3.5-5.1); Sodium 142 mmol/L (136-145); TSH (W/Ref FT4) 0.75 uIU/mL (0.36-3.74); Total Protein 8.5 g/dL (6.4-8.2)
--- NOTE | 2023-06-29 16:47 | NUR.NOTE ---
Nursing Note: feels that the patient is allowed to have their phone in their possession. We will cont to monitor if pt remains behaving appropriately with this allowance
[2023-06-29 16:53] LABS: *AMPHETAMINES SCREEN URINE Negative (Negative); *BARBITURATES SCREEN URINE Negative (Negative); *BENZODIAZEPINES SCREEN URINE Negative (Negative); Cannabinoids THC Positive (Negative); Cocaine Screen,Urine Negative (Negative); METHADONE URINE SCREEN Negative (Negative); OPIATES URINE SCREEN Negative (Negative)
[2023-06-29 16:54] LABS: Tricyclic Antidepressants Negative (Negative)
--- NOTE | 2023-06-29 17:19 | PDOC.MHCN_ITS ---
Date of service: 06/29/23 Time of Service: 15:26 PHQ-9 Over the last 2 weeks, how often have you been bothered by any of the following problems? 1. Little interest or pleasure in doing things: nearly every day 2. Feeling down, depressed, or hopeless: nearly every day 3. Trouble falling or staying asleep, or sleeping too much: nearly every day 4. Feeling tired or having little energy: nearly every day 5. Poor appetite or overeating: nearly every day 6. Feeling bad about yourself - or that you are a failure or have let yourself and your family down: nearly every day 7. Trouble concentrating on things, such as reading the newspaper or watching television: nearly every day 8. Moving or speaking so slowly that other people could have noticed? - Or the opposite - being so fidgety or restless that you have been moving around a lot more than usual: nearly every day 9. Thoughts that you would be better off or of hurting yourself in some way: more than half the days Total score: 26 If you checked off any problems, how difficult have these problems made it for you to do your work, take care of things at home, or get along with other people?: extremely difficult PHQ-9 Results: Positive Source: Developed by Drs. Brian Tran, Mojgan Houser, Sammy Howe and colleagues, with an educational jayjay from [employer]. Suicide Severity Rate CSSRS Have you wished you were or wished you could go to sleep and not wake up?: Yes Have you actually had any thoughts of killing yourself?: No CSSRS3 Have you ever done anything, started to do anything or prepared to do anything to end your life?: No Screening Score Total Score: 2 Screening: Positive Mental Health Emergency Note Release [facility] release signed:: Yes Reason for Visit Client is unknown to [facility] prior to this proposal lead writer's assessment of the client today. Client presents to [facility] ED for increased depression and rhianna related to his dx of bi-polar. Client reports to ED staff that he has been off his medications for about 9 years. Client reports episodes in the past of depression or rhianna, but never mixed. Client reports that he is normally able to get out of an episode without any help, but this time he reports he is struggling. Intake paperwork complete. This proposal lead writer meets with the client in person at [facility] ED. In the last 2 weeks has the pt presented for ES prior to today?: No Client Information Client is: New Well Housed: Yes Non Suicidal Self Injury Current: No History: yes, Hx of NSSI via overdosing on medications when a teenager. Safety Risk/Harm to Self or Others Current Ideation to Harm Self or Others: Yes to self. (Client reports constatnt SI, however denies intent and plan. ) Intent: no, has no intent. Plan: no.does not have a plan. History of suicide attempt: No history of suicide attempt reported Risk: Does risk to harm exist?: yes. Access to means: No. Risk: Moderate Risk Asssessment/Mental Status Appearance: Unremarkable Attitude: Cooperative Behavior: Unremarkable Speech: Soft Affect: Flat and Cogruent with mood Mood: Depressed Thought process: Unremarkable Hallucinations: No Delusions: No Attention: Unremarkable Perception: Not impaired Orientation: Fully orientated Memory: Intact Insight: Fair Judgement: Fair Neurovegetative Symptoms Sleep: Decrease Appetitie: Decrease Interests: Decrease Energy: Decrease Libido: Not applicable Substance Use: Do you use nicotine?: No Have you used substances in the last 7 days?: No Additional Issues: Assaultive/Threatening Behavior: No Medical Concerns: No Client engaged in active self harm w/weapon: No Threatening to run away: No Child reported abuse/neglect: No Voluntarily presenting for services: Yes Domestic violence is a concern: No Extreme Psychosis or extreme behavior is present: No Impression Client is a 27 y/o single male that lives in [place], [place]. 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 Client presents to [facility] for assessment with chief complaint that he is diagnosed with bi-polar and he has been experiencing a lot of emotions. Client reports that yesterday he called out of work as he has been angry one minute and severely depressed the next. Client presents with symptoms most congruent to major depressive disorder severe as evidenced by self-report, lack of energy, loss of interest in things that used to bring him job, unstable mood, and high score (26/27) on the PHQ-9 rating scale. The client reports that he has consistent suicidal ideations, however denies intent or plan to act on these thoughts. The client appears to be future oriented stating that he wants to get re-established on medications and learn coping skills that he can utilize when he is having an episode. The client is agreeable to staying at [facility] ED on voluntary status pending admission to an inpatient facility. Plan/Disposition Recommended Disposition: Hospitalization facilities contacted. Plan: Client will remain at [facility] ED on voluntary status pending admission to an inpatient facility. Client's referrals will be faxed to [facility], [facility], [facility], and . Client will be re-assessed daily by [facility] until placement is secured or the client is able to be safety planned home. Person reported agreement to plan: Yes Facilities contacted if Applicable [facility] Not accepted, No bed available [facility] Not accepted, Only accepting in house referrals Not accepted, [facility], [facility] available Reports/communication Outcome discussed with: ED/Personnel (verbal passover given to ED provider Dr. Tapia )
--- NOTE | 2023-06-29 18:08 | PDOC.CMSAFE ---
Date of service: 06/29/23 Time of Service: 18:08 Care Management Safety Plan Status Status: Voluntary Reason for Wait Reason for Wait: Inpatient Admission Safety Plan Safety Plan: CHIEF COMPLAINT: Jed presents in the ED seeking voluntary inpatient treatment. Per MD note, patient has a history of Bipolar Disorder and has not been on medication for several years. Jed is currently struggling with worsening anxiety, racing thoughts, insomnia and intermittent suicidal ideation without intent or plan. He is assessed by [facility] Crisis Screener, and is deemed appropriate for a voluntary psych placement. Referrals are faxed to [facility], [facility], [facility], and [facility] for review. Jed will remain at [facility] and will be reassessed daily by [facility] until a bed is secured for him. CM will continue to follow. VOLUNTARY FOR INPATIENT PSYCHIATRIC STABILIZATION.? Patient is appropriate in all interactions since arriving at [facility]; Pt has demonstrated appropriate coping and communication skills, has articulated his or her needs and concerns and is fully engaged during staff interactions. Safety plan has been established with patient, and care team, to adhere to patient goals, identify restrictions based on behavioral status, address nutrition, and determine allowed personal belongings, tools for hygiene and personal care. Determine level of activity including ambulation, level of supervision, visitors, and determine privileges based on behaviors and level of engagement by pt. SAFETY PLAN: 1. Will remain on suicide precautions. In his work scrubs. Patient was wanded by security. 2. Per ED provider, patient does not require direct supervision of one-on-one staff due to having no intent or plan of harming himself. 3. May have paper cups, plates, finger foods as well as a cardboard spoon with which to eat meals. 4. Follow [facility] Management of the Admitted Behavioral Health Patient policy. 5. Comfort bath system only, shower permitted with escort at RN discretion. 6. No personal belongings with the exception of self-phone and work scrubs-soft items permitted at RN discretion. 7. Visitors: Per [facility] visitor policy and at RN discretion. 8. Activities: soft cart items and other activities approved per RN discretion. 9.? Bathroom privileges with escort in the ED, available in room without limitation on M/S. 10. Phone: Per ED provider, patient is permitted to have his own cell phone. 11. Due to VOLUNTARY status, if patient wishes to leave [facility], staff will contact [facility] Crisis Screener ([phone]) and On-Call Pottery Kiln Builder ([phone]) as soon as possible. In the event of elopement, notify [facility] Police ([phone]). Patient is currently voluntarily at [facility] and seeking inpatient admission when a bed becomes available. [facility] Frontline Medical Auditor will continue seeking placement. Please contact the Shipping And Receiving Pottery Kiln Builder ([phone]) and [facility] Medical Auditor ([phone]) for any needed changes in the Safety Plan. Safety plan has been provided to interdepartmental care team.
--- NOTE | 2023-06-29 20:29 | ED.PROG_ITS ---
Date of service: 06/29/23 Time of Service: 20:29 Medical Decision Making Initially patient was accepted to [facility], have received a call that he is actually accepted to [facility]. Awaiting to do Dr. Carson Tompkins and nursing or signout. Patient remains calm cooperative no acute distress Discharge Plan Disposition Patient Disposition: Psychiatric Hospital/Unit Specific Psychiatric Facility: [facility] Condition: Stable Discharge Details Clinical Impression: Bipolar 1 disorder Primary Care Provider: Edel Abdalla ED Provider: Rui Huynh Home Meds and New Rx's Prescriptions: No Action hydroxyzine HCl 25 mg tablet 25 mg PO QHS PRN (Reason: nausea and vomiting) Qty: 30 0RF cholecalciferol (vitamin D3) 4,000 unit capsule 4,000 unit PO DAILY loratadine [Claritin] 10 mg tablet 10 mg PO DAILY PRN sumatriptan succinate 100 mg tablet See Rx Instructions PO .COMPLEX Qty: 9 3RF Rx Instructions: take 1 tab at onset of headache; if no relief, may repeat 1 tab after at least 2 hrs; max = 2 tabs/24 hrs PO albuterol sulfate 90 mcg/actuation HFA aerosol inhaler 2 puff IH Q4H PRN (Reason: shortness of breath or wheezing) Qty: 18 12RF naproxen 250 mg tablet 250 - 500 mg PO BID PRN (Reason: Moderate pain or swelling) Qty: 60 0RF
--- NOTE | 2023-06-29 21:00 | W.EDPROG ---
Date of service: 06/29/23 Time of Service: 21:00 Medical Decision Making pt signed out to me pending placement for bipolar and vague si, calm and cooperative now. Spoke with [facility] VALERY Linton who accepts for transfer to their facility Sign Out Sign Out Data: Sign Out Comment: accepted to [facility], awaiting callback for doc to doc Last updated by Rui Huynh MD at 06/29/23 20:31 Discharge Plan Disposition Patient Disposition: Psychiatric Hospital/Unit Specific Psychiatric Facility: [facility] Condition: Stable Discharge Details Clinical Impression: Bipolar 1 disorder Primary Care Provider: Edel Abdalla ED Provider: Bakari Key Home Meds and New Rx's Prescriptions: No Action hydroxyzine HCl 25 mg tablet 25 mg PO QHS PRN (Reason: nausea and vomiting) Qty: 30 0RF cholecalciferol (vitamin D3) 4,000 unit capsule 4,000 unit PO DAILY loratadine [Claritin] 10 mg tablet 10 mg PO DAILY PRN sumatriptan succinate 100 mg tablet See Rx Instructions PO .COMPLEX Qty: 9 3RF Rx Instructions: take 1 tab at onset of headache; if no relief, may repeat 1 tab after at least 2 hrs; max = 2 tabs/24 hrs PO albuterol sulfate 90 mcg/actuation HFA aerosol inhaler 2 puff IH Q4H PRN (Reason: shortness of breath or wheezing) Qty: 18 12RF naproxen 250 mg tablet 250 - 500 mg PO BID PRN (Reason: Moderate pain or swelling) Qty: 60 0RF
== END 2023-06-29 22:31 ==
PROVIDERS: Emergency Medicine; Emergency Provider Emergency Medicine; PCP Nurse Practitioner
DX: F41.9 Anxiety disorder, unspecified (principal); F31.9 Bipolar disorder, unspecified; R45.851 Suicidal ideations; Q79.60 Ehlers-Danlos syndrome, unspecified
CPT/HCPCS: 80053; 80307; 96374; 99284; 84443; 85025; J2060

== ENCOUNTER → 2023-07-19 00:54 | Outpatient (CLI) | payer OTHER, SELFPAY ==
--- NOTE | 2023-07-19 13:00 | DI.US_ITS ---
APPROVED REPORT EXAM: Comprehensive 2D, Doppler, and color-flow Echocardiogram Patient Location: Out-Patient Facilities Manager: Asif Santos RDCS (AE) Indications: chronic dyspnea on exertion Other Information Study Quality: Good Conclusion Normal left ventricular wall thickness and chamber size. Ejection fraction is 60%. Wall motion is n ormal Normal right ventricular size and systolic function Both atria are normal in size There is no structural or hemodynamically significant valvular disease Wall motion Left Ventricle The left ventricle is normal size. The left ventricular systolic function is normal. The left ventric ular ejection fraction is within the normal range. There is normal left ventricular wall thickness. T here is normal LV segmental wall motion. There is no ventricular septal defect visualized. LVEF is 60 %. Right Ventricle The right ventricle is normal size. The right ventricular systolic function is normal. Unable to asse ss PA pressure. Atria The left atrium size is normal. The right atrium size is normal. The interatrial septum is intact wit h no evidence for an atrial septal defect. Aortic Valve The aortic valve is normal in structure. Aortic valve is trileaflet. There is no aortic valvular sten osis. No aortic regurgitation is present. Mitral Valve The mitral valve is normal in structure. No evidence of mitral valve stenosis. Trace mitral regurgita tion. Tricuspid Valve The tricuspid valve is normal in structure. There is no tricuspid valve stenosis. Trace tricuspid reg urgitation. Pulmonic Valve The pulmonary valve is normal in structure. There is no pulmonic valvular stenosis. There is no pulmo melissa valvular regurgitation. Great Vessels The aortic root is normal in size. The ascending aorta is normal in size. Aortic arch is normal in ca liber. IVC is normal in size and collapses >50% with inspiration. Pericardium There is no pericardial effusion. 2D Dimensions IVSD d PLAX 0.62 cm M: 0.6-1.2 Ao Root d 2.68 cm M: 3.1 - 3.7 LVPW d PLAX 0.75 cm M: 0.6 - 1.2 Ao Asc Diam d 2.63 cm M: 2.6 - 3.4 LVID d PLAX 4.82 cm M: 4.2 - 5.8 LVDs 3.28 cm M: 2.5 - 4.0 LV EF Teichholz 59.8 % FS 31.86 % LV EDV (Teich) 108.6 mL LV ESV (Teich) 43.6 mL Stroke Vol Index (Teich) 33.31 M-Mode TAPSE 2.32 cm (M/F) >1.7 Auto EF LV EDV A4C 118.3 mL LV EDV A2C 104.3 mL LV EDV BP 112.7 mL LV ESV A4C 49.1 mL LV ESV A2C 43.1 mL LV ESV BP 45.9 mL LVEF(%) A4C 58.5 % LVEF(%) A2C 58.7 % LVEF(%) BP 59.3 % LV SV A4C 69.2 ml LV SV A2C 61.2 ml LV SV BP 66.8 ml LV CO A4C 5.7 L/min LV CO A2C 5.5 L/min LV CO BP 5.6 L/min HR A4C 82.00 BPM HR A2C 90.00 BPM LV EDV Index (BP) LA Volume LA Length A4C 4.5 cm LA Length A2C LA Area A4C s 11.31 cm2 LA Area A2C s LA Vol A4C A-L 24.25 mL LA Vol A2C A-L LA Vol Biplane A-L LA Vol A4C MOD 23.2 mL LA Vol A2C MOD LA Vol BP MOD RA Volume RA Area A4C 6.7 cm2 RA ESV A4C (A-L) 10.5mL RA Vol/BSA A4C A-L RA Length A4C 3.7 cm RA ESV A4C (MOD) 10.3mL LV Diastology MV E' medial 0.128 (>0.07 m/s) MV E Vmax 0.94 (0.4-1.3 m/s) MV E/E' MED 7.31 (<14) MV A Vmax 0.65 (0.4-1.3 m/s) MV E' lateral 0.159 (>0.1 m/s) E/A Ratio 1.4 MV E/E' LAT 5.89 (<14) MV E' Average 0.144 m/s MV E/E'(average) 6.52 Aortic Valve AoV Vmax 1.06 m/s LVOT Vmax 1.10 m/s AoV Peak Grad 4.5 mmHg LVOT Peak Grad 4.9 mmHg AoV Area (Vmax) 3.27 cm2 LVOT VTI 0.204 m AoV VTI 0.208 m LVOT Mean Grad 2.6 mmHg AoV Mean Romulo. 0.74 m/s LVOT SV 63.92 mL AoV Mean Grad 2.5 mmHg LVOT Diam s 1.95 cm AoV Area (VTI) 3.08 cm2 Velocity Ratio 1.04 Mitral Valve MV DT 110 (160-240 msec) Pulmonary Valve PV Vmax 1.22 (0.5-1.5 m/s) RVOT Vmax 0.77 m/s PV Peak Grad 5.9 mmHg RVOT Peak Gr. 2.4 mmHg PV Mean Romulo 0.86 m/s RVOT VTI 0.151 m PV Mean Grad 3.4 mmHg RVOT Mean Gr. 1.4 mmHg
== END ==
PROVIDERS: PCP Nurse Practitioner; Visit Provider Nurse Practitioner
DX: R06.09 Other forms of dyspnea
CPT/HCPCS: 93306

== ENCOUNTER 2023-10-17 18:13 | Outpatient (REF) | payer OTHER, SELFPAY ==
[2023-10-17 18:07] LABS: Hemoglobin A1C 4.9 % (<5.7)
[2023-10-17 20:47] LABS: ALT 38 U/L (16-63); AST 25 U/L (15-37); Albumin 4.6 g/dL (3.4-5.0); Alkaline Phosphatase 68 U/L (46-116); Anion Gap 11.1 mmol/L (3-11); BUN 16 mg/dL (7-18); Bilirubin, Total 0.3 mg/dL (0.2-1.0); CO2 28.9 mmol/L (21.0-32.0); Calcium 9.7 mg/dL (8.5-10.1); Chloride 101 mmol/L (98-107); Cholesterol 241 mg/dL (<200); Estimated GFR 105.14 (mL/min/1.73m2); Glucose 75 mg/dL (74-106); HDL Cholesterol 51 mg/dL (40-60); Potassium 3.9 mmol/L (3.5-5.1); Sodium 141 mmol/L (136-145); Total Protein 7.9 g/dL (6.4-8.2); Triglyceride 440 mg/dL (<150)
[2023-10-17 21:02] LABS: LDL CHOLESTEROL 106 mg/dL (<100)
== END 2023-10-17 18:14 | disposition home or self-care (01) ==
LOC: LBO 18:13
PROVIDERS: PCP Nurse Practitioner; Visit Provider Nurse Practitioner
DX: F31.9 Bipolar disorder, unspecified (principal); Z51.81 Encounter for therapeutic drug level monitoring
CPT/HCPCS: 80053; 80061; 83721; 83036

== ENCOUNTER 2023-10-25 16:16 | Outpatient (REF) | payer OTHER, SELFPAY ==
[2023-10-25 13:01] LABS: Calculated LDL 145 mg/dL (<100); Cholesterol 226 mg/dL (<200); HDL Cholesterol 64 mg/dL (40-60); Triglyceride 88 mg/dL (<150)
== END 2023-10-25 16:17 | disposition home or self-care (01) ==
LOC: LBO 16:16
PROVIDERS: PCP Nurse Practitioner; Visit Provider Nurse Practitioner
DX: E78.5 Hyperlipidemia, unspecified (principal)
CPT/HCPCS: 80061

== ENCOUNTER 2023-12-13 12:08 | Emergency (ER) | payer OTHER, SELFPAY ==
[2023-12-13 12:12] VITALS: BP 148/69; PULSE 83; RESP 18; TEMP 37; O2SAT 98
--- NOTE | 2023-12-13 12:30 | DI.CT_ITS ---
Exam(s) CT HEAD WO EXAM: CT HEAD WO CLINICAL HISTORY: Headache. TECHNIQUE: Imaging Protocol: Axial computed tomography images with coronal and sagittal reformatted images were created and reviewed COMPARISON: No exams were available for comparison FINDINGS: Ventricles and Extra axial spaces: Normal in size and morphology for the patient's age. Hemorrhage: None. Cerebral parenchyma: Normal. Midline shift: None. Brainstem/Cerebellum: Normal. Calvarium: Normal. Visualized Paranasal sinuses/Mastoids: Clear. Soft Tissues: Unremarkable. IMPRESSION: 1. No acute intracranial process. 2. Findings were discussed with the emergency department at 1:32 p.m. on 12/13/2023. RADIATION DOSE DELIVERED: 833.04mGy.cm Total DLP DATA REPOSITORY: All CT scans at this facility are submitted to the National Radiology Data Registry (NRDR) Dose Index Registry (DIR) with the [employer] (ACR). RADIATION OPTIMIZATION: All CT scans at this facility use at least one of these dose optimization te chniques: automated exposure control; mA and/or kV adjustment per patient size (includes targeted exa ms where dose is matched to clinical indication); or iterative reconstruction.
--- NOTE | 2023-12-13 12:40 | ED.GENADUL_ITS ---
HPI General Mode of arrival: ambulatory . Date/Time Provider Initiated Documentation: 12/13/23 12:15 . Limitations to Documentation: no limitations . Information obtained by: patient, RN notes reviewed and old records reviewed . HPI Narrative: 28-year-old male presents to the ER with a chief complaint of headache x 4 days that is increasingly getting worse. He did take Tylenol ibuprofen and sumatriptan on Saturday which did little to nothing to relieve his headache. He reports that it started in the back of his head and neck it is now generalized. He is nauseous denies any light sensitivity. Denies any double vision but does endorse some blurry vision. Denies any ear pain throat pain fever or chills. Denies any recent head injuries. Past medical history includes bipolar dis order, shingles asthma and bilateral inguinal hernia repair. He does have a history of migraines. Other history includes Nicole-Danlos syndrome. Related Data Home Medications Medication Instructions Recorded Confirmed cholecalciferol (vitamin D3) 100 4,000 unit PO DAILY 07/03/19 12/13/23 mcg (4,000 unit) capsule loratadine 10 mg tablet (Claritin) 10 mg PO DAILY PRN 07/20/19 12/13/23 naproxen 250 mg tablet 250 - 500 mg (1 - 2 x 250 mg) PO 12/01/20 12/13/23 BID PRN Moderate pain or swelling #60 tabs albuterol sulfate 90 mcg/actuation 2 puff inhalation Q4H PRN 07/10/21 12/13/23 aerosol inhaler shortness of breath or wheezing #18 grams sumatriptan succinate 100 mg tablet See Rx Instructions PO .COMPLEX #9 05/07/22 12/13/23 tabs sildenafil 50 mg tablet 50 mg PO DAILY PRN sexual activity 07/22/23 12/13/23 #30 tabs hydroxyzine HCl 25 mg tablet 25 mg PO TID PRN anxiety #90 tabs 11/05/23 12/13/23 lurasidone 20 mg tablet (Latuda) 20 mg PO DAILY #90 tabs 12/09/23 12/13/23 Previous Rx's Medication Instructions Recorded naproxen 250 mg tablet 250 - 500 mg (1 - 2 x 250 mg) PO 12/01/20 BID PRN Moderate pain or swelling #60 tabs albuterol sulfate 90 mcg/actuation 2 puff inhalation Q4H PRN 07/10/21 aerosol inhaler shortness of breath or wheezing #18 grams sumatriptan succinate 100 mg tablet See Rx Instructions PO .COMPLEX #9 05/07/22 tabs sildenafil 50 mg tablet 50 mg PO DAILY PRN sexual activity 07/22/23 #30 tabs hydroxyzine HCl 25 mg tablet 25 mg PO TID PRN anxiety #90 tabs 11/05/23 lurasidone 20 mg tablet (Latuda) 20 mg PO DAILY #90 tabs 12/09/23 Allergies Allergy/AdvReac Type Severity Reaction Status Date / Time diphenhydramine AdvReac confusion Verified 12/13/23 12:14 [From Benadryl] cashews Allergy Intermediate itching Uncoded 12/13/23 12:14 General Stated Complaint: Headache SEEMA: 3 Review of Systems All systems reviewed & are unremarkable except as noted in HPI and below Constitutional Constitutional: Reports as per HPI and Reports headache(s) ENT Ears, Nose, Mouth, and Throat: Reports headache(s) Neurologic Neurologic: Reports headache(s) Exam Narrative Exam Narrative: Constitutional: Alert and oriented x3. Appears stated age. Normal body habitus. Head: Normocephalic, no trauma. Eyes: Pupils PERRL, Red reflex noted, EOM's intact. Eyelids symmetrical without lesions, discharge, or swelling. ENT: Bilateral TM's WNL, External ear normal to inspection, no mastoid TTP, swelling, or erythema, Nasal turbinates WNL, no nasal discharge. Normal dentition, Posterior pharynx WNL, no exudate. Chest: RRR, Normal S1, S2, distal pulses intact. Resp: Lungs clear to auscultation bilaterally, no wheezes, rales, or rhonchi. Abdomen: Soft, non-distended, Normoactive bowel sounds all 4 quads. Musculoskeletal: Normal gait, 5/5 strength to all four extremities. Skin: No suspicious rashes or lesions. Capillary refill less than 2 sec. Neurologic: Cranial nerves II-XII intact. Alert and oriented x 3. Motor: No deficits noted. Sensory: Intact bilaterally all 4 extremities. Reflexes: DTR's intact bilaterally. He does have some right-sided occipital tenderness with palpation, paraspinous. No nuchal rigidity. Hematologic/Lymphatic: No ecchymosis, no lymphadenopathy. Course Vital Signs Vital signs: Vital Signs Temperature 37.0 C 12/13/23 12:12 Pulse 83 12/13/23 12:12 Respiratory Rate 18 12/13/23 12:12 Blood Pressure 148/69 H 12/13/23 12:12 Pulse Oximetry 98 12/13/23 12:12 Temperature 37.0 C 12/13/23 12:12 Temperature Source Skin 12/13/23 12:12 Pulse 83 12/13/23 12:12 Respiratory Rate 18 12/13/23 12:12 Respiratory Effort Normal, Non-Labored 12/13/23 12:15 Blood Pressure 148/69 H 12/13/23 12:12 Blood Pressure Position Sitting 12/13/23 12:12 Pulse Oximetry 98 12/13/23 12:12 Oxygen Delivery Method Room Air 12/13/23 12:12 Oxygen Flow Rate 0 12/13/23 12:12 Pain Level 3 12/13/23 12:12 Procedures Nerve Block Nerve Block 1: Time out performed: Yes Local Anesthetic: Lidocaine 1% and Bupivicaine 0.25% Amount of anesthesia used (mL): 2 Side: left and right Nerve Blocks: occipital Patient Tolerated Procedure: well Complications: none Medical Decision Making 28-year-old male presents to the ER with a chief complaint of headache x 4 days that is increasingly getting worse. He did take Tylenol ibuprofen and sumatriptan on Saturday which did little to nothing to relieve his headache. He reports that it started in the back of his head and neck it is now generalized. He is nauseous denies any light sensitivity. Denies any double vision but does endorse some blurry vision. Denies any ear pain throat pain fever or chills. Denies any recent head injuries. Past medical history includes bipolar disorder, shingles asthma and bilateral inguinal hernia repair. He does have a history of migraines. Other history includes Nicole-Danlos syndrome. CBC CMP IV normal saline Zofran ordered head CT without contrast. Patient reports he cannot take Benadryl. Will consider Compazine and Toradol after CT. Differential diagnosis includes not limited to migraine, generalized headache, occipital headache, musculoskeletal strain, meningitis. CT within normal limits. Patient received a liter of normal saline, Flexeril Zofran and Toradol which did little to relieve his headache. Occipital block performed with 1% lidocaine and bupivacaine. Approximately 2 mL of medication was injected into the base of the occipital nerves bilaterally. Patient reports worsening pain on the right side prior to procedure. Patient tolerated well no complications noted. Will send patient home with couple tablets of tramadol if needed for pain. On patient reevaluation he reports that his headache is somewhat better. Given instructions to follow-up and strict return instructions. This text was generated using [employer] system, please disregard any oddities of phrase or misspellings. Medical Records Medical records reviewed: Yes I reviewed the patient's medical records. Lab Data Lab results reviewed: Yes I reviewed the patient's lab results. Labs: Laboratory Tests Range/Units 12/13/23 12:23 WBC (4.4-10.8) 10^3/uL 4.65 RBC (4.36-5.78) 10^6/uL 5.45 Hgb (13.5-17.5) g/dL 15.8 Hct (40.0-50.0) % 46.7 MCV (80-95) fL 86 MCH (27.0-33.0) pg 29.0 MCHC (32.0-36.0) % 33.8 RDW (11.8-14.1) % 12.2 Plt Count (130-400) 10^3/uL 247 MPV (8.0-11.0) fL 9.5 Immature Gran % 0.9 Neutrophils % 60.6 Lymphocytes % 26.2 Monocytes % 8.4 Eosinophils % 2.4 Basophils % 1.5 Nucleated RBC % (0.0-0.3) % 0.0 Absolute Neutrophils (1.2-6.7) 10^3/uL 2.82 Absolute Lymphocytes (1.2-3.4) 10^3/uL 1.22 Absolute Monocytes (0.1-0.8) 10^3/uL 0.39 Absolute Eosinophils (0.0-0.7) 10^3/uL 0.11 Absolute Basophils (0.0-0.2) 10^3/uL 0.07 ESR (0-15) mm/hr 1 Sodium (136-145) mmol/L 140 Potassium (3.5-5.1) mmol/L 3.4 L Chloride (98-107) mmol/L 102 Carbon Dioxide (21.0-32.0) mmol/L 30.0 Anion Gap (3-11) mmol/L 8.0 BUN (7-18) mg/dL 9 Creatinine (0.70-1.30) mg/dL 0.9 Est GFR (CKD-EPI 2020) (mL/min/1.73m2) 119.31 Glucose (74-106) mg/dL 102 Calcium (8.5-10.1) mg/dL 9.4 Total Bilirubin (0.2-1.0) mg/dL 0.8 AST (15-37) U/L 25 ALT (16-63) U/L 39 Alkaline Phosphatase (46-116) U/L 47 Total Protein (6.4-8.2) g/dL 8.0 Albumin (3.4-5.0) g/dL 4.5 Quality:[facility] Health Related Social Needs: No Data to Display PFSH All Active Problems (Updated 12/13/23 @ 14:39 by Karen Sepulveda NP) Occipital headache (Acute) Bipolar 1 disorder (Acute) Nicole-Danlos syndrome (Acute) Bilateral knee pain (Acute) Light headed (Acute) Routine general medical examination at a health care facility (Acute) Dizzy spells (Acute) Migraine headache without aura (Acute) Chronic headache (Acute) Encounter for screening for other viral diseases (Acute) SLAP lesion of right shoulder (Acute) Tendonitis of long head of biceps brachii of right shoulder (Acute) Fatigue (Acute) Joint ache (Acute) Instability of right shoulder joint (Acute) Insomnia (Acute) Migraine headache with aura (Acute) Medical History History of bipolar disorder History of shingles 10/2020 Asthma new dx January 2020 No significant past medical history Surgical History S/P bilateral inguinal hernia repair Family History Mother Anxiety Migraine COPD (chronic obstructive pulmonary disease) Father Anxiety Paternal Grandfather Lung cancer Social History Smoking/Tobacco Use Status: Never Smoking risk assessment performed?: Yes Alcohol Intake: current Alcohol Intake frequency: holidays/special occasions only Alcohol type: beer and hard liquor Drug use: Occasionally Substance use type: marijuana Caregiver/Support person: No Household members: none Housing: apartment Number of Children: 0 Communication Needs: None and Corrective Lenses 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 [employer] Current 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: male What type of physical activity do you participate in: other Details: PT Frequency: 3-4 times per week Seatbelt use: always Water heater temp set <120 deg: Yes Working smoke detector in home: Yes Fire extinguisher in home: Yes Carbon monox detector in home: Yes Firearms in home: No Do you feel safe at home: Yes Do you feel safe in your relationship?: Yes Discharge Plan Disposition Patient Disposition: Home Condition: Stable Discharge Details Clinical Impression: Occipital headache Primary Care Provider: Edel Abdalla ED Provider: Karen Sepulveda [place] Meds and New Rx's Prescriptions: Continued sildenafil 50 mg tablet 50 mg PO DAILY PRN (Reason: sexual activity) Qty: 30 5RF Rx Instructions: administer 30 minutes to 4 hours before activity cholecalciferol (vitamin D3) 4,000 unit capsule 4,000 unit PO DAILY loratadine [Claritin] 10 mg tablet 10 mg PO DAILY PRN sumatriptan succinate 100 mg tablet See Rx Instructions PO .COMPLEX Qty: 9 3RF Rx Instructions: take 1 tab at onset of headache; if no relief, may repeat 1 tab after at least 2 hrs; max = 2 tabs/24 hrs PO lurasidone [Latuda] 20 mg tablet 20 mg PO DAILY Qty: 90 0RF Rx Instructions: must administer with food (at least 350 calories) albuterol sulfate 90 mcg/actuation HFA aerosol inhaler 2 puff IH Q4H PRN (Reason: shortness of breath or wheezing) Qty: 18 12RF hydroxyzine HCl 25 mg tablet 25 mg PO TID PRN (Reason: anxiety) Qty: 90 0RF Rx Instructions: Take before meals. Take with Latuda. naproxen 250 mg tablet 250 - 500 mg PO BID PRN (Reason: Moderate pain or swelling) Qty: 60 0RF Discharge Instructions Instructions: General Headache (ED) Additional Instructions: CT within normal limits, labs are largely within normal limits. The occipital block should last for approximately 4 to 6 hours. Please take the pain medication as directed with food do not drive. Follow up with primary care provider in 3-5 days. Return to ED sooner if any worsening headache not relieved by Tylenol or ibuprofen, weakness confusion, vomiting or concerns. Increase oral fluids. Continue take sumatriptan as previously prescribed. Please take Tylenol or Ibuprofen with food every 4-6 hours as needed for pain and swelling. Referrals: Edel Abdalla NP [Primary Care Provider] - 5 days
[2023-12-13] MEDS: Normal Saline 1,000 ML 1000 ML IV (12:57)
[2023-12-13] MEDS: Ondansetron 4 MG/2 ML VIAL IVP (12:58)
[2023-12-13 13:01] LABS: Abs Immature Grans 0.04 10^3/uL (0.0-0.06); Absolute Basophil Count 0.07 10^3/uL (0.0-0.2); Absolute Eosinophil Count 0.11 10^3/uL (0.0-0.7); Absolute Lymphocyte Count 1.22 10^3/uL (1.2-3.4); Absolute Monocyte Count 0.39 10^3/uL (0.1-0.8); Absolute Neutrophil Count 2.82 10^3/uL (1.2-6.7); Basophils % 1.5; Eosinophils % 2.4; HCT 46.7 % (40.0-50.0); HGB 15.8 g/dL (13.5-17.5); Immature Grans % 0.9; Lymphocytes % 26.2; MCHC 33.8 % (32.0-36.0); MCV 86 fL (80-95); MPV 9.5 fL (8.0-11.0); Monocytes % 8.4; Neutrophils % 60.6; Platelet Count 247 10^3/uL (130-400); RBC 5.45 10^6/uL (4.36-5.78); RDW 12.2 % (11.8-14.1); RDW-SD 37.6 fL; WBC 4.65 10^3/uL (4.4-10.8)
[2023-12-13 13:02] LABS: ESR 1 mm/hr (0-15)
[2023-12-13 13:15] LABS: ALT 39 U/L (16-63); AST 25 U/L (15-37); Albumin 4.5 g/dL (3.4-5.0); Alkaline Phosphatase 47 U/L (46-116); BUN 9 mg/dL (7-18); Bilirubin, Total 0.8 mg/dL (0.2-1.0); CREATININE 0.9 mg/dL (0.70-1.30); Calcium 9.4 mg/dL (8.5-10.1); Chloride 102 mmol/L (98-107); Estimated GFR 119.31 (mL/min/1.73m2); Glucose 102 mg/dL (74-106); Potassium 3.4 mmol/L (3.5-5.1); Sodium 140 mmol/L (136-145)
[2023-12-13] MEDS: Cyclobenzaprine 10 MG TAB PO (13:51)
[2023-12-13] MEDS: Ketorolac 30 MG/ML VIAL IVP (13:51)
== END 2023-12-13 14:19 | disposition home or self-care (01) ==
PROVIDERS: Emergency Provider Registered Nurse Emergency; PCP Nurse Practitioner
DX: M54.81 Occipital neuralgia (principal); R11.0 Nausea; R51.9 Headache, unspecified
CPT/HCPCS: 64405; 80053; 85652; 96361; 96374; 96375; 99284; 70450; 85025; 99283; J1885; J2405

== ENCOUNTER → 2024-01-22 13:42 | Outpatient (CLI) | payer OTHER, SELFPAY ==
--- NOTE | 2024-01-22 12:45 | DI.RAD_ITS ---
Exam(s) XR CERVICAL SPINE COMP 4-5V EXAM: XR CERVICAL SPINE COMP 4-5V CLINICAL HISTORY: OCCIPITAL HEADACHE R51.9. TECHNIQUE: 2D digital imaging was performed. Five images were obtained. AP, odontoid, lateral and bi lateral oblique images were obtained. COMPARISON: No exams were available for comparison FINDINGS: The odontoid is intact. The lateral masses are well aligned. There is straightening of the normal ce rvical lordosis. This may be due to muscle spasm or patient positioning. The vertebral bodies, disc spaces and posterior elements are well maintained. No acute fracture or subluxation is present. No significant neural foraminal stenosis is present. The cervical thoracic junction is well maintained. The prevertebral soft tissues are unremarkable. Lung apices are clear. IMPRESSION: There is straightening of the normal cervical lordosis. This may be due to muscle spasm or patient p ositioning. Otherwise unremarkable examination. DATA REPOSITORY: RADIATION DOSE DELIVERED:
== END ==
PROVIDERS: PCP Nurse Practitioner; Visit Provider Nurse Practitioner Adult Health
DX: R51.9 Headache, unspecified (principal)
CPT/HCPCS: 72050

== ENCOUNTER 2024-03-27 18:16 | Emergency (ER) | payer OTHER, SELFPAY ==
[2024-03-27 18:20] VITALS: BP 157/82; PULSE 91; RESP 16; TEMP 36.2; O2SAT 99
[2024-03-27 18:26] VITALS: BP 157/82; PULSE 91; RESP 16; TEMP 36.2; O2SAT 99
[2024-03-27 18:44] VITALS: BP 135/87; PULSE 84; RESP 14; O2SAT 97
--- NOTE | 2024-03-27 18:45 | ED.GENADUL_ITS ---
Discharge Plan Disposition Patient Disposition: Home Condition: Stable Discharge Details Clinical Impression: Karine Primary Care Provider: Edel Abdalla ED Provider: Rui Huynh Home Meds and New Rx's Prescriptions: New cephalexin 500 mg capsule 500 mg PO TID 5 Days Qty: 15 0RF No Action sildenafil 50 mg tablet 50 mg PO DAILY PRN (Reason: sexual activity) Qty: 30 5RF Rx Instructions: administer 30 minutes to 4 hours before activity cholecalciferol (vitamin D3) 4,000 unit capsule 4,000 unit PO DAILY loratadine [Claritin] 10 mg tablet 10 mg PO DAILY PRN sumatriptan succinate 100 mg tablet See Rx Instructions PO .COMPLEX Qty: 9 3RF Rx Instructions: take 1 tab at onset of headache; if no relief, may repeat 1 tab after at least 2 hrs; max = 2 tabs/24 hrs PO lurasidone [Latuda] 20 mg tablet 20 mg PO DAILY Qty: 90 3RF Rx Instructions: must administer with food (at least 350 calories) albuterol sulfate 90 mcg/actuation HFA aerosol inhaler 2 puff IH Q4H PRN (Reason: shortness of breath or wheezing) Qty: 18 12RF hydroxyzine HCl 25 mg tablet 25 mg PO DAILY AM Rx Instructions: Take before meals. Take with Latuda. naproxen 250 mg tablet 250 - 500 mg PO BID PRN (Reason: Moderate pain or swelling) Qty: 60 0RF Discharge Instructions Instructions: Stye (ED) Additional Instructions: Please return to the emergency department for any worsening symptoms. Continue with warm compresses and NSAIDs. HPI General Date/Time Provider Initiated Documentation: 03/27/24 18:23 . HPI Narrative: 28-year-old male presents with 3 days of right upper eyelid swelling. History of styes in the past has been using NSAIDs and warm compresses. Related Data Home Medications Medication Instructions Recorded Confirmed cholecalciferol (vitamin D3) 100 4,000 unit PO DAILY 07/03/19 03/27/24 mcg (4,000 unit) capsule loratadine 10 mg tablet (Claritin) 10 mg PO DAILY PRN 07/20/19 03/27/24 naproxen 250 mg tablet 250 - 500 mg (1 - 2 x 250 mg) PO 12/01/20 03/27/24 BID PRN Moderate pain or swelling #60 tabs albuterol sulfate 90 mcg/actuation 2 puff inhalation Q4H PRN 07/10/21 03/27/24 aerosol inhaler shortness of breath or wheezing #18 grams sumatriptan succinate 100 mg tablet See Rx Instructions PO .COMPLEX #9 05/07/22 03/27/24 tabs sildenafil 50 mg tablet 50 mg PO DAILY PRN sexual activity 07/22/23 03/27/24 #30 tabs lurasidone 20 mg tablet (Latuda) 20 mg PO DAILY #90 tabs 02/27/24 03/27/24 cephalexin 500 mg capsule 500 mg PO TID 5 days #15 caps 03/27/24 hydroxyzine HCl 25 mg tablet 25 mg PO DAILY AM anxiety 03/27/24 03/27/24 Previous Rx's Medication Instructions Recorded naproxen 250 mg tablet 250 - 500 mg (1 - 2 x 250 mg) PO 12/01/20 BID PRN Moderate pain or swelling #60 tabs albuterol sulfate 90 mcg/actuation 2 puff inhalation Q4H PRN 07/10/21 aerosol inhaler shortness of breath or wheezing #18 grams sumatriptan succinate 100 mg tablet See Rx Instructions PO .COMPLEX #9 05/07/22 tabs sildenafil 50 mg tablet 50 mg PO DAILY PRN sexual activity 07/22/23 #30 tabs lurasidone 20 mg tablet (Latuda) 20 mg PO DAILY #90 tabs 02/27/24 cephalexin 500 mg capsule 500 mg PO TID 5 days #15 caps 03/27/24 Allergies Allergy/AdvReac Type Severity Reaction Status Date / Time diphenhydramine AdvReac confusion Verified 03/27/24 18:19 [From Benadryl] cashews Allergy Intermediate itching Uncoded 03/27/24 18:19 General Stated Complaint: EyeProblem SEEMA: 4 Review of Systems Narrative: Review of Systems Constitutional: negative Eyes: Right eyelid swelling ENT: negative Cardiovascular: negative Respiratory: negative Gastrointestinal: negative : negative Musculoskeletal: negative Skin: negative Neurologic: negative Psych: negative Exam Narrative Exam Narrative: Physical Examination General: alert, awake, cooperative, resting comfortably, no acute distress HEENT: normocephalic, atraumatic; PERRL, EOM intact, conjunctiva normal; localized stye right upper lateral eyelid with erythema and induration to upper lid, no proptosis no ocular discharge; vision intact; no nasal discharge; moist mucous membranes, oral and pharyngeal mucosa normal, tolerating secretions Neck: supple, trachea midline; full ROM Chest: normal to inspection Respiratory: normal respiratory effort, speaking in full sentences Course Vital Signs Vital signs: Vital Signs Temperature 36.2 C L 03/27/24 18:20 Pulse 91 H 03/27/24 18:20 Respiratory Rate 16 03/27/24 18:20 Blood Pressure 157/82 H 03/27/24 18:20 Pulse Oximetry 99 03/27/24 18:20 Temperature 36.2 C L 03/27/24 18:26 Temperature Source Temporal Artery Scan 03/27/24 18:26 Pulse 84 03/27/24 18:44 Respiratory Rate 14 03/27/24 18:44 Respiratory Effort Normal, Non-Labored 03/27/24 18:22 Blood Pressure 135/87 03/27/24 18:44 Blood Pressure Position Sitting 03/27/24 18:26 Pulse Oximetry 97 03/27/24 18:44 Oxygen Delivery Method Room Air 03/27/24 18:44 Oxygen Flow Rate 0 03/27/24 18:44 Pain Level 4 03/27/24 18:26 Comment took meds in morning 03/27/24 18:25 Medical Decision Making 28-year-old male presents with 3 days of right upper eyelid swelling consistent with stye, vision intact, no evidence of conjunctivitis, no proptosis and no surrounding ocular inflammation to suggest orbital cellulitis. Afebrile nontoxic. Encourage patient to continue with warm compresses and NSAIDs. Given 3 days of continued induration and erythema will also start on Keflex to treat for any possible superimposed bacterial infection. Home care instructions return precautions given Quality:[facility] Health Related Social Needs: No Data to Display PFSH All Active Problems (Updated 03/27/24 @ 18:47 by Rui Huynh MD) Hordeolum (Acute) Bipolar 1 disorder (Acute) Nicole-Danlos syndrome (Acute) Bilateral knee pain (Acute) Light headed (Acute) Routine general medical examination at a health care facility (Acute) Dizzy spells (Acute) Migraine headache without aura (Acute) Chronic headache (Acute) Encounter for screening for other viral diseases (Acute) SLAP lesion of right shoulder (Acute) Tendonitis of long head of biceps brachii of right shoulder (Acute) Fatigue (Acute) Joint ache (Acute) Instability of right shoulder joint (Acute) Insomnia (Acute) Migraine headache with aura (Acute) Medical History History of bipolar disorder History of shingles 10/2020 Asthma new dx January 2020 No significant past medical history Surgical History S/P bilateral inguinal hernia repair Family History Mother Anxiety Migraine COPD (chronic obstructive pulmonary disease) Father Anxiety Paternal Grandfather Lung cancer Social History Smoking/Tobacco Use Status: Never Smoking risk assessment performed?: Yes Alcohol Intake: current Alcohol Intake frequency: holidays/special occasions only Alcohol type: beer and hard liquor Drug use: Occasionally Substance use type: marijuana Caregiver/Support person: No Household members: none Housing: apartment Number of Children: 0 Communication Needs: None and Corrective Lenses 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
[2024-03-27] MEDS: Cephalexin 500 MG CAP PO (18:47)
== END 2024-03-27 19:33 | disposition home or self-care (01) ==
PROVIDERS: Emergency Provider Emergency Medicine; PCP Nurse Practitioner
DX: H00.011 Hordeolum externum right upper eyelid (principal)
CPT/HCPCS: 99283

== ENCOUNTER 2024-04-14 19:14 | Outpatient (REF) | payer OTHER, SELFPAY ==
[2024-04-15 10:28] LABS: HIV-1/2 Ag & Ab Screen Negative (Negative)
[2024-04-15 10:55] LABS: Hepatitis A Antibody IgM Negative (Negative); Hepatitis B Core Antibody Negative (Negative); Hepatitis B surface Ag Negative (Negative); Hepatitis C Ab w Rflx HCV PCR Negative (Negative)
[2024-04-15 11:29] LABS: Syphilis Serology (RPR) Negative (Negative)
== END 2024-04-14 19:15 | disposition home or self-care (01) ==
LOC: LBO 19:14
PROVIDERS: PCP Nurse Practitioner; Visit Provider Nurse Practitioner
DX: Z11.59 Encounter for screening for other viral diseases (principal)
CPT/HCPCS: 86704; 86709; 86803; 87340; 87389; 86592

== ENCOUNTER 2024-04-15 14:59 | Outpatient (REF) | payer OTHER, SELFPAY ==
[2024-04-16 12:35] LABS: Chlamydia Result Negative (Negative); GC Result Negative (Negative)
== END 2024-04-15 15:00 | disposition home or self-care (01) ==
LOC: LBN 14:59
PROVIDERS: PCP Nurse Practitioner; Visit Provider Nurse Practitioner
DX: Z11.3 Encounter for screening for infections with a predominantly sexual mode of transmission (principal)
CPT/HCPCS: 87491; 87591

== ENCOUNTER 2024-04-22 18:54 | Emergency (ER) | payer OTHER, SELFPAY ==
--- NOTE | 2024-04-22 18:45 | DI.RAD_ITS ---
Exam(s) XR HAND LT COMPLETE EXAM: XR HAND LT COMPLETE CLINICAL HISTORY: base of L index finger pain. TECHNIQUE: 2D digital imaging was performed of the left hand. Three views were obtained. AP, later al and oblique views were obtained. COMPARISON: No exams were available for comparison FINDINGS: BONES: No acute fracture is present. No bony destructive lesion is seen. JOINTS: No dislocation present. SOFT TISSUE: Normal. IMPRESSION: Unremarkable radiographs of the left hand. DATA REPOSITORY: RADIATION DOSE DELIVERED:
[2024-04-22 18:56] VITALS: BP 142/76; PULSE 94; RESP 16; TEMP 36.1; O2SAT 98
--- NOTE | 2024-04-22 19:18 | ED.GENADUL_ITS ---
Discharge Plan Disposition Patient Disposition: Home Condition: Stable Discharge Details Clinical Impression: Contusion of left hand Primary Care Provider: Edel Abdalla ED Provider: Boy Warner Home Meds and New Rx's Prescriptions: Continued sildenafil 50 mg tablet 50 mg PO DAILY PRN (Reason: sexual activity) Qty: 30 5RF Rx Instructions: administer 30 minutes to 4 hours before activity albuterol sulfate 90 mcg/actuation HFA aerosol inhaler 2 puff IH Q4H PRN (Reason: shortness of breath or wheezing) Qty: 18 12RF sumatriptan succinate 100 mg tablet See Rx Instructions PO .COMPLEX Qty: 9 3RF Rx Instructions: take 1 tab at onset of headache; if no relief, may repeat 1 tab after at least 2 hrs; max = 2 tabs/24 hrs PO cholecalciferol (vitamin D3) 4,000 unit capsule 4,000 unit PO DAILY loratadine [Claritin] 10 mg tablet 10 mg PO DAILY PRN lurasidone [Latuda] 20 mg tablet 20 mg PO DAILY Qty: 90 3RF Rx Instructions: must administer with food (at least 350 calories) hydroxyzine HCl 25 mg tablet 25 mg PO DAILY AM Rx Instructions: Take before meals. Take with Latuda. naproxen 250 mg tablet 250 - 500 mg PO BID PRN (Reason: Moderate pain or swelling) Qty: 60 0RF Discharge Instructions Instructions: Minor Contusion ED Additional Instructions: You were seen in the emergency department for the contusion of your left hand struck while operating a centrifuge. There is no fracture on your x-ray. Please rest, ice, compress and elevate the hand often over the next few days, take adequate dosing for Tylenol and ibuprofen. Please follow-up with or thopedics for any range of motion deficits or neurovascular changes over the next 1 to 2 weeks. Please return to the ER for any complete neurovascular compromise. Referrals: Edel Abdalla NP [Primary Care Provider] - Discharge Data Discharge Date/Time-TO BE ENTERED AT DEPARTURE: 04/22/24 20:26 HPI General Date/Time Provider Initiated Documentation: 04/22/24 18:58 . 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 Quality described as mild crush type injury, soreness, no radiation to gross swelling, lesion, bruising, numbness, weakness. Severity is described as mild to moderate. Palliating factors include nothing specific. Provoking factors include nothing specific. Patient not anticoagulated. Related Data Home Medications Medication Instructions Recorded Confirmed cholecalciferol (vitamin D3) 100 4,000 unit PO DAILY 07/03/19 04/22/24 mcg (4,000 unit) capsule loratadine 10 mg tablet (Claritin) 10 mg PO DAILY PRN 07/20/19 04/22/24 naproxen 250 mg tablet 250 - 500 mg (1 - 2 x 250 mg) PO 12/01/20 04/22/24 BID PRN Moderate pain or swelling #60 tabs sildenafil 50 mg tablet 50 mg PO DAILY PRN sexual activity 07/22/23 04/22/24 #30 tabs lurasidone 20 mg tablet (Latuda) 20 mg PO DAILY #90 tabs 02/27/24 04/22/24 hydroxyzine HCl 25 mg tablet 25 mg PO DAILY AM anxiety 03/27/24 04/22/24 albuterol sulfate 90 mcg/actuation 2 puff inhalation Q4H PRN 04/13/24 04/22/24 aerosol inhaler shortness of breath or wheezing #18 grams sumatriptan succinate 100 mg tablet See Rx Instructions PO .COMPLEX #9 04/13/24 04/22/24 tabs Previous Rx's Medication Instructions Recorded naproxen 250 mg tablet 250 - 500 mg (1 - 2 x 250 mg) PO 12/01/20 BID PRN Moderate pain or swelling #60 tabs sildenafil 50 mg tablet 50 mg PO DAILY PRN sexual activity 07/22/23 #30 tabs lurasidone 20 mg tablet (Latuda) 20 mg PO DAILY #90 tabs 02/27/24 albuterol sulfate 90 mcg/actuation 2 puff inhalation Q4H PRN 04/13/24 aerosol inhaler shortness of breath or wheezing #18 grams sumatriptan succinate 100 mg tablet See Rx Instructions PO .COMPLEX #9 04/13/24 tabs Allergies Allergy/AdvReac Type Severity Reaction Status Date / Time diphenhydramine AdvReac confusion Verified 04/22/24 18:59 [From Benadryl] [email or web address] Allergy Intermediate itching Uncoded 04/22/24 18:59 General Stated Complaint: Orthopedic SEEMA: 4 Review of Systems All systems reviewed & are unremarkable except as noted in HPI and below Exam Narrative Exam Narrative: GENERAL APPEARANCE: Well-nourished, non-toxic, awake and alert, atraumatic, no acute distress. SKIN: Warm, pink, dry, intact, without rashes/lesions/ulcerations. HEAD: Normocephalic, atraumatic, normal hair distribution for gender/age. EYES: Normal conjunctiva, no exudates on lids/lashes. ENT: Nares patent, no circumoral cyanosis, no facial swelling NECK: Supple, trachea midline, painless cervical ROM. LUNGS/CHEST: Non-labored respirations, normal A/P diameter, symmetrical expansion, no chest wall deformity HEART (CV/PV): Regular rate, no peripheral edema, no JVD. ABDOMEN: Soft, non-distended, no guarding. MSK: Normal ROM, no swelling/deformity to bilateral UEs or LEs, moving all extremities without weakness, no cyanosis, spine midline without tenderness, normal curvature. L Hand: Tenderness to palpation at the base of the left index finger without overt deformity or gross swelling or severe ecchymosis, is able to move the left index finger and is neurovascularly intact distal NEURO: Mental Status AAOx4 - alert to person, place, time, events No facial droop, no forehead involvement. Motor: No focal weakness - strength 5/5 in bilateral UEs and LEs, proximal and distal, symmetric. Sensory: sensation intact to light touch globally. Gait normal: patient ambulated without ataxia into ED room. PSYCH: euthymic, cooperative, pleasant, appropriate speech Course Vital Signs Vital signs: Vital Signs Temperature 36.1 C L 04/22/24 18:56 Pulse 94 H 04/22/24 18:56 Respiratory Rate 16 04/22/24 18:56 Blood Pressure 142/76 H 04/22/24 18:56 Pulse Oximetry 98 04/22/24 18:56 Temperature 36.1 C L 04/22/24 18:56 Pulse 94 H 04/22/24 18:56 Respiratory Rate 16 04/22/24 18:56 Respiratory Effort Normal, Non-Labored 04/22/24 18:59 Blood Pressure 142/76 H 04/22/24 18:56 Pulse Oximetry 98 06/12/24 18:56 Medical Decision Making This dictation utilizes [id number] dictation software and may contain unedited grammatical errors. 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 Quality described as mild crush type injury, soreness, no radiation to gross swelling, lesion, bruising, numbness, weakness. Severity is described as mild to moderate. Palliating factors include nothing specific. Provoking factors include nothing specific. Patients' medical history: Noncontributory. Family and social history: Noncontributory. Pertinent exam findings / vital signs include L Hand: Tenderness to palpation at the base of the left index finger without overt deformity or gross swelling or severe ecchymosis, is able to move the left index finger and is neurovascularly intact distal. Differential / pathologies of concern include contusion, fracture, strain/sprain. Diagnostic studies of: -XR L Hand - no acute fracture seen. Interventions of: -none. ED Course/Assessment/Plan: 20-year-old male presents from the lab after having a minor crush injury to his left index finger in the centrifuge machine, he has no overt deformity and is neurovascularly intact, x-rays negative for fracture, patient denies any specific hand dominant states he is ambidextrous. 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 Findings not consistent with fracture, neurovascular compromise. Disposition of contusion of left hand. Patient verbalized understanding of the plan and return to ED criteria and engaged in shared decision making. Medical Records Medical records reviewed: Yes I reviewed the patient's medical records. Imaging Data Radiologic Study: Attestation: I personally reviewed and interpreted this imaging study as follows: Imaging: X-Ray Radiologist's impression: Exam: XR Left Hand Exam date and time: 04/22/2024 19:08 Age: 28 years old Clinical indication: Pain; Hand; Left; Additional info: Base of L index finger pain TECHNIQUE: Imaging protocol: Radiologic exam of the left hand. Views: 3 or more views. COMPARISON: MR UPPER EXTREMITIES^ADULT 10/12/2020 12:03 FINDINGS: Bones/joints: No acute fracture or subluxation. Soft tissues: Unremarkable. IMPRESSION: No acute bony pathology. Dictated and Authenticated by: Brenda Martinez MD. Ordering:SILVERIO Brunson MD Quality:[facility] Health Related Social Needs: No Data to Display PFSH All Active Problems (Updated 04/22/24 @ 20:05 by KEYONNA Gutierrez) Contusion of left hand (Acute) Hordeolum (Acute) Bipolar 1 disorder (Acute) Nicole-Danlos syndrome (Acute) Bilateral knee pain (Acute) Light headed (Acute) Routine general medical examination at a health care facility (Acute) Dizzy spells (Acute) Migraine headache without aura (Acute) Chronic headache (Acute) Encounter for screening for other viral diseases (Acute) SLAP lesion of right shoulder (Acute) Tendonitis of long head of biceps brachii of right shoulder (Acute) Fatigue (Acute) Joint ache (Acute) Instability of right shoulder joint (Acute) Insomnia (Acute) Migraine headache with aura (Acute) Medical History History of bipolar disorder History of shingles 10/2020 Asthma new dx January 2020 No significant past medical history Surgical History S/P bilateral inguinal hernia repair Family History Mother Anxiety Migraine COPD (chronic obstructive pulmonary disease) Father Anxiety Paternal Grandfather Lung cancer Social History (Updated 04/13/24 @ 14:45 by Oralia Gambino LPN) Smoking/Tobacco Use Status: Never Smokeless tobacco user: other (THC) Smoking risk assessment performed?: Yes Alcohol Intake: current Alcohol Intake frequency: holidays/special occasions only Alcohol type: beer and hard liquor Drug use: Daily Substance use type: marijuana Counseling given: No Caregiver/Support person: No Household members: none Housing: apartment Number of Children: 0 Communication Needs: Corrective Lenses 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 [employer] Current 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: male How often do you talk on the phone with friends or family?: three or more times per week How often do you get together with friends or relatives?: three or more times per week Panel score (0-1 are the most socially isolated patients): 1 What type of physical activity do you participate in: irregular exercise and other Details: Go to Gym 3x/week Duration: > 90 minutes/day Frequency: 3-4 times per week Seatbelt use: always Water heater temp set <120 deg: Yes Working smoke detector in home: Yes Fire extinguisher in home: Yes Carbon monox detector in home: Yes Firearms in home: No Do you feel safe at home: Yes Do you feel safe in your relationship?: Yes PAWSS Have you Been Recently Intoxicated or Drunk Within the Last 30 days?: No Have you Ever Experienced Previous Episodes of Alcohol Withdrawal?: No Have you ever Experienced Withdrawal Seizures?: No Have you ever Experienced Delirium Tremens(DT)s?: No Have you ever undergone Alcohol Rehabilitation Treatment (i.e, inpt ot outpatient treatment programs)?: No Have you ever Experienced Blackouts?: No Have you ever Combined Alcohol with other Downers within the last 90 days?: No Have you ever Combined Alcohol with any other Substance of Abuse during the last 90 days?: No Result: 0
--- NOTE | 2024-04-22 19:36 | DI.VRAD_ITS ---
PROCEDURE INFORMATION: Exam: XR Left Hand Exam date and time: 04/22/2024 19:08 Age: 28 years old Clinical indication: Pain; Hand; Left; Additional info: Base of L index finger pain TECHNIQUE: Imaging protocol: Radiologic exam of the left hand. Views: 3 or more views. COMPARISON: MR UPPER EXTREMITIES^ADULT 10/12/2020 12:03 FINDINGS: Bones/joints: No acute fracture or subluxation. Soft tissues: Unremarkable. IMPRESSION: No acute bony pathology. Dictated and Authenticated by: Brenda Martinez MD. Ordering:SILVERIO Brunson MD
== END 2024-04-22 20:26 | disposition home or self-care (01) ==
PROVIDERS: Emergency Provider Physician Assistant; PCP Nurse Practitioner
DX: S67.191A Crushing injury of left index finger, initial encounter (principal); W31.89XA Contact with other specified machinery, initial encounter; Y93.89 Activity, other specified; Y92.89 Other specified places as the place of occurrence of the external cause; Y99.0 Civilian activity done for income or pay
CPT/HCPCS: 99283; 73130

== ENCOUNTER 2024-08-13 20:18 | Emergency (ER) | payer OTHER, SELFPAY ==
[2024-08-13 20:20] VITALS: BP 166/83; PULSE 97; RESP 20; O2SAT 97
--- NOTE | 2024-08-13 20:39 | W.ED.GENAD ---
Discharge Plan Disposition Patient Disposition: Home Discharge Details Clinical Impression: Low back pain Primary Care Provider: Edel Abdalla ED Provider: Amadeo Key Home Meds and New Rx's Prescriptions: New methylprednisolone [Medrol (Jean Pierre)] 4 mg tablets,dose pack See Rx Instructions .ROUTE .COMPLEX Qty: 21 0RF Rx Instructions: for 6 days gabapentin 100 mg capsule 100 mg PO TID 7 Days Qty: 21 0RF Discontinued ketorolac 10 mg tablet 10 mg PO Q6H MDD 40mg 4 Days Qty: 16 0RF Rx Instructions: maximum total duration of 5 days from all oral, intranasal, or parenteral formulations. take with food. No Action sildenafil 50 mg tablet 50 mg PO DAILY PRN (Reason: sexual activity) Qty: 30 5RF Rx Instructions: administer 30 minutes to 4 hours before activity albuterol sulfate 90 mcg/actuation HFA aerosol inhaler 2 puff IH Q4H PRN (Reason: shortness of breath or wheezing) Qty: 18 12RF sumatriptan succinate 100 mg tablet See Rx Instructions PO .COMPLEX Qty: 9 3RF Rx Instructions: take 1 tab at onset of headache; if no relief, may repeat 1 tab after at least 2 hrs; max = 2 tabs/24 hrs PO cholecalciferol (vitamin D3) 4,000 unit capsule 4,000 unit PO DAILY loratadine [Claritin] 10 mg tablet 10 mg PO DAILY PRN lurasidone [Latuda] 20 mg tablet 20 mg PO DAILY Qty: 90 3RF Rx Instructions: must administer with food (at least 350 calories) hydroxyzine HCl 25 mg tablet 25 mg PO DAILY AM Rx Instructions: Take before meals. Take with Latuda. naproxen 250 mg tablet 250 - 500 mg PO BID PRN (Reason: Moderate pain or swelling) Qty: 60 0RF Discharge Instructions Instructions: Low Back Pain (DC) Additional Instructions: You were seen in the emergency department for low back pain and numbness and tingling in your left leg. You likely have a slipped disc or pinched nerve in your back. The treatment is the same with strong anti-inflammatories. Stop the Tylenol and Toradol. I am giving you a Medrol Dosepak which is a strong steroid to treat this. If you develop paralysis in your legs or bowel or bladder incontinence please return to the emergency department. Otherwise if your symptoms are simply lingering you could follow-up with your primary care doctor. Please return here if you have any other concerns. Referrals: Edel Abdalla NP [Primary Care Provider] - 5 days HPI General Mode of arrival: ambulatory. Date/Time Provider Initiated Documentation: 08/13/24 20:28. Limitations to Documentation: no limitations. Information obtained by: patient. HPI Narrative: 29-year-old male presents with low back pain. He has had it for about a week. Started after he had been bowling for a long evening. No other injuries to explain the back pain. Saw his primary today and given a dose of Toradol and sent home with some oral Toradol. He has had worsening pain and shooting pain down the left leg as well as subjective numbness and tingling in the left leg. No weakness. No bowel or bladder incontinence or retention. No saddle anesthesia. No fevers or chills. No IV drug use or any recent surgeries or procedures. Related Data Home Medications ?Medication ?Instructions ?Recorded ?Confirmed cholecalciferol (vitamin D3) 100 4,000 unit PO DAILY 07/03/19 08/13/24 mcg (4,000 unit) capsule loratadine 10 mg tablet (Claritin) 10 mg PO DAILY PRN 07/20/19 08/13/24 naproxen 250 mg tablet 250 - 500 mg (1 - 2 x 250 mg) PO 12/01/20 08/13/24 BID PRN Moderate pain or swelling #60 tabs sildenafil 50 mg tablet 50 mg PO DAILY PRN sexual activity 07/22/23 08/13/24 #30 tabs lurasidone 20 mg tablet (Latuda) 20 mg PO DAILY #90 tabs 02/27/24 08/13/24 hydroxyzine HCl 25 mg tablet 25 mg PO DAILY AM anxiety 03/27/24 08/13/24 albuterol sulfate 90 mcg/actuation 2 puff inhalation Q4H PRN 04/13/24 08/13/24 aerosol inhaler shortness of breath or wheezing #18 grams sumatriptan succinate 100 mg tablet See Rx Instructions PO .COMPLEX #9 04/13/24 08/13/24 tabs gabapentin 100 mg capsule 100 mg PO TID 1 week #21 caps 08/13/24 methylprednisolone 4 mg tablets in See Rx Instructions PO .COMPLEX 08/13/24 a dose pack (Medrol (Jean Pierre)) #21 dose pk Previous Rx's ?Medication ?Instructions ?Recorded naproxen 250 mg tablet 250 - 500 mg (1 - 2 x 250 mg) PO 12/01/20 BID PRN Moderate pain or swelling #60 tabs sildenafil 50 mg tablet 50 mg PO DAILY PRN sexual activity 07/22/23 #30 tabs lurasidone 20 mg tablet (Latuda) 20 mg PO DAILY #90 tabs 02/27/24 albuterol sulfate 90 mcg/actuation 2 puff inhalation Q4H PRN 04/13/24 aerosol inhaler shortness of breath or wheezing #18 grams sumatriptan succinate 100 mg tablet See Rx Instructions PO .COMPLEX #9 04/13/24 tabs gabapentin 100 mg capsule 100 mg PO TID 1 week #21 caps 08/13/24 methylprednisolone 4 mg tablets in See Rx Instructions PO .COMPLEX 08/13/24 a dose pack (Medrol (Jean Pierre)) #21 dose pk Allergies Allergy/AdvReac Type Severity Reaction Status Date / Time diphenhydramine (From AdvReac confusion Verified 08/13/24 13:02 Benadryl) cashews Allergy Intermediate itching Uncoded 08/13/24 13:02 General Stated Complaint: Nk/Back Pain SEEMA: 3 Review of Systems Constitutional Constitutional: Denies chills, Denies fever(s) and Denies headache(s) Eyes Eyes: Denies change in vision ENT Ears, Nose, Mouth, and Throat: Denies headache(s) and Denies odynophagia Cardiovascular Cardiovascular: Denies chest pain and Denies dyspnea Respiratory Respiratory: Denies dyspnea Gastrointestinal Gastrointestinal: Denies abdominal pain, Denies diarrhea, Denies nausea, Denies odynophagia and Denies vomiting Genitourinary Genitourinary: Denies dysuria Musculoskeletal Musculoskeletal: Denies myalgias, Reports numbness, Reports radiating pain into limb and Reports other (back pain) Integumentary/Breasts Skin/Breast: Denies changing lesions Neurologic Neurologic: Denies behavioral changes, Denies headache(s) and Reports numbness Psychiatric Psychiatric: Denies behavioral changes Endocrine Endocrine: Denies heat intolerance Hematologic/Lymphatic Hematologic/Lymphatic: Denies lymphadenopathy Exam Const General: cooperative Nutritional Appearance: average body habitus Orientation: alert, awake and oriented x3 HENMT Head: normal to inspection Ears: external ears normal Mouth: moist mucous membranes Eyes Pupils: PERRL EOM: EOM intact bilaterally and No nystagmus Neck Neck: full ROM and no tracheal deviation Chest Chest: normal inspection of the chest Resp Auscultation: clear to auscultation bilaterally Cardio Rate: regular rate Rhythm: regular rhythm GI Inspection: normal to inspection Palpation: soft, no guarding, not rigid and nontender Back/Spine/Pelvis Back: No no CVA tenderness Other: Tenderness in the left paraspinal muscles of the lumbar spine. No midline thoracic or lumbar spine tenderness. No deformities or step-offs noted. No overlying skin changes. Reports the pain shooting down into the left leg. Reporting subjective numbness but no objective sensory loss on examination. Strength and sensation intact in the bilateral lower extremities. Skin General skin exam: no rashes or lesions noted Neuro General: patient alert, patient awake and patient oriented x3 Cranial Nerves: CN's II-XI intact bilaterally, PERRL and no nystagmus Cognition: normal cognition Motor: muscle tone normal throughout and strength 5/5 throughout Sensory Exam: no sensory deficits noted Extrem General: normal to inspection Course Vital Signs Vital signs: Vital Signs Pulse 97 H 08/13/24 20:20 Respiratory Rate 20 08/13/24 20:20 Blood Pressure 166/83 H 08/13/24 20:20 Pulse Oximetry 97 08/13/24 20:20 Pulse 97 H 08/13/24 20:20 Respiratory Rate 20 08/13/24 20:20 Respiratory Effort Normal 08/13/24 20:34 Blood Pressure 166/83 H 08/13/24 20:20 Blood Pressure Position Sitting 08/13/24 20:20 Pulse Oximetry 97 08/13/24 20:20 Oxygen Delivery Method Room Air 08/13/24 20:20 Oxygen Flow Rate 0 08/13/24 20:20 Medical Decision Making 29-year-old male presents with low back pain rating down the left leg. Likely low back pain and either spinal stenosis, or radiculopathy or sciatica as the cause of the symptoms. No red flag symptoms for cord compression or spinal epidural abscess. No role for emergent MRI. No history of trauma to suggest fracture so no role for CT at this time. Reporting numbness and tingling in the leg but no objective sensory losses and strength is intact. Told him to stop taking the Tylenol and Toradol and we will put him on a Medrol Dosepak. He is agreeable with this plan. Will discharge with return precautions. Quality:SDOH Health Related Social Needs: No Data to Display PFSH All Active Problems Low back pain (Acute) Acute low back pain (Acute) Bipolar 1 disorder (Acute) Nicole-Danlos syndrome (Acute) Bilateral knee pain (Acute) Light headed (Acute) Routine general medical examination at a health care facility (Acute) Dizzy spells (Acute) Migraine headache without aura (Acute) Chronic headache (Acute) Encounter for screening for other viral diseases (Acute) SLAP lesion of right shoulder (Acute) Tendonitis of long head of biceps brachii of right shoulder (Acute) Fatigue (Acute) Joint ache (Acute) Instability of right shoulder joint (Acute) Insomnia (Acute) Migraine headache with aura (Acute) Medical History Multiple benign nevi (~07/2024) 07/20/24 Dermatology Solar lentigo (~07/2024) 07/20/24 Dermatology History of bipolar disorder History of shingles 10/2020 Asthma new dx January 2020 No significant past medical history Surgical History S/P bilateral inguinal hernia repair Family History Mother Anxiety Migraine COPD (chronic obstructive pulmonary disease) Father Anxiety Paternal Grandfather Lung cancer Social History Smoking/Tobacco Use Status: Never Smokeless tobacco user: other (THC) Smoking risk assessment performed?: Yes Alcohol Intake: current Alcohol Intake frequency: holidays/special occasions only Alcohol type: beer and hard liquor Drug use: Daily Substance use type: marijuana Counseling given: No Caregiver/Support person: No Household members: none Housing: apartment Number of Children: 0 Communication Needs: Corrective Lenses 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 [employer] Current 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: male How often do you talk on the phone with friends or family?: three or more times per week How often do you get together with friends or relatives?: three or more times per week Panel score (0-1 are the most socially isolated patients): 1 What type of physical activity do you participate in: irregular exercise and other Details: Go to Gym 3x/week Duration: > 90 minutes/day Frequency: 3-4 times per week Seatbelt use: always Water heater temp set <120 deg: Yes Working smoke detector in home: Yes Fire extinguisher in home: Yes Carbon monox detector in home: Yes Firearms in home: No Do you feel safe at home: Yes Do you feel safe in your relationship?: Yes
[2024-08-13] MEDS: methylPREDNISolone 4 MG TAB 24 MG PO (21:14)
== END 2024-08-13 21:14 | disposition home or self-care (01) ==
LOC: ER 20:59
PROVIDERS: Emergency Provider Student in an Organized Health Care Education/Training Program; PCP Nurse Practitioner
DX: R20.0 Anesthesia of skin (principal); M54.50 Low back pain, unspecified
CPT/HCPCS: 99283; J7509

== ENCOUNTER 2025-04-16 21:29 | Emergency (ER) | payer OTHER, SELFPAY ==
[2025-04-16 21:33] VITALS: BP 130/90; PULSE 81; RESP 18; TEMP 36.7; O2SAT 97
--- NOTE | 2025-04-16 21:45 | DI.RAD_ITS ---
Exam(s) XR CHEST 2V PA LATERAL EXAM: XR CHEST 2V PA LATERAL CLINICAL HISTORY: shortness of breath, subjective fevers TECHNIQUE: 2D digital imaging was performed of the chest. Two images were obtained. PA and lateral views were obtained. COMPARISON: CR XR CHEST 2V PA LATERAL from 01/15/2020 FINDINGS: MEDIASTINUM: Normal. HEART: Normal. PULMONARY VASCULATURE: Normal. LUNGS: Clear. PLEURAL SPACE: No pleural effusion or pneumothorax. BONE:Within normal limits for the patient's age. OTHER FINDINGS:Normal. IMPRESSION: 1. No acute pulmonary findings. 2. The preliminary [facility] report was reviewed. DATA REPOSITORY: RADIATION DOSE DELIVERED:
[2025-04-16] MEDS: predniSONE 20 MG TAB 40 MG PO (21:57)
[2025-04-16] MEDS: Albuterol HFA 8 GM 60 PUFF INH IH (21:58)
[2025-04-16 22:26] LABS: COVID-19 PCR Negative (Negative); Influenza A PCR Negative (Negative); Influenza B PCR Negative (Negative); RSV PCR Negative (Negative)
[2025-04-16 22:27] LABS: Source Nasopharynx
[2025-04-16 22:49] VITALS: PULSE 90; RESP 18; O2SAT 100
--- NOTE | 2025-04-16 23:28 | DI.[facility]_ITS ---
PROCEDURE INFORMATION: Exam: XR Chest Exam date and time: 04/16/2025 10:37 PM Age: 29 years old Clinical indication: Other: Shortness of breath, subjective fevers TECHNIQUE: Imaging protocol: Radiologic exam of the chest. Views: 2 views. COMPARISON: CR XR CHEST 2V PA LATERAL 01/15/2020 2:19 PM FINDINGS: Lungs: Unremarkable. No consolidation. Pleural spaces: Unremarkable. No pleural effusion. No pneumothorax. Heart/Mediastinum: Unremarkable. No cardiomegaly. Bones/joints: Unremarkable. IMPRESSION: No acute findings. Dictated and Authenticated by: Tanmay Russo MD. Orderin Elizabeth Lombardi MD
--- NOTE | 2025-04-17 16:12 | W.ED.GENAD ---
Discharge Plan Disposition Patient Disposition: Home Condition: Stable Discharge Details Clinical Impression: Bronchitis Primary Care Provider: Edel Abdalla ED Provider: Maria C Johnson Home Meds and New Rx's Prescriptions: New prednisone 20 mg tablet 40 mg PO ONCE Qty: 10 0RF Continued sildenafil 50 mg tablet 50 mg PO DAILY PRN (Reason: sexual activity) Qty: 30 5RF Rx Instructions: administer 30 minutes to 4 hours before activity albuterol sulfate 90 mcg/actuation HFA aerosol inhaler 2 puff IH Q4H PRN (Reason: shortness of breath or wheezing) Qty: 18 12RF cholecalciferol (vitamin D3) 4,000 unit capsule 4,000 unit PO DAILY loratadine [Claritin] 10 mg tablet 10 mg PO DAILY PRN Wegovy 1 mg/0.5 mL pen injector 1 mg subcut Q7D Qty: 2 5RF Rx Instructions: Weeks 9-12 sumatriptan succinate 100 mg tablet See Rx Instructions PO .COMPLEX Qty: 9 3RF Rx Instructions: take 1 tab at onset of headache; if no relief, may repeat 1 tab after at least 2 hrs; max = 2 tabs/24 hrs PO lurasidone [Latuda] 20 mg tablet 20 mg PO DAILY Qty: 90 0RF Rx Instructions: must administer with food (at least 350 calories) hydroxyzine HCl 25 mg tablet 25 mg PO DAILY AM Rx Instructions: Take before meals. Take with Latuda. naproxen 250 mg tablet 250 - 500 mg PO BID PRN (Reason: Moderate pain or swelling) Qty: 60 0RF Discharge Instructions Instructions: Bronchitis, Adult ED Additional Instructions: Use inhaler 2 puffs every 4-6 hours as needed for cough, wheeze, shortness of breath Increase fluids You may take Mucinex as needed for mucus production Cough and cold tea Take the prednisone for 3 to 5 days Please return with fever, worsening symptoms, or should any new concerns arise Stand Alone Forms: Work Release Referrals: Edel Abdalla NP [Primary Care Provider] - 5 days Discharge Data Discharge Date/Time-TO BE ENTERED AT DEPARTURE: 04/16/25 22:49 HPI General Date/Time Provider Initiated Documentation: 04/16/25 21:41. HPI Narrative: The patient is a 29-year-old gentleman with a history of bipolar disorder and Nicole-Danlos syndrome, presenting with a complaint of cough and chest congestion persisting for the last 2 weeks. He reports a persistent cough and chest congestion for the past 2 weeks, with no associated fever or chills. He expresses concern over the lack of improvement in his condition. He has a known history of exercise-induced asthma but has not utilized his inhaler for symptom management. Related Data Home Medications ?Medication ?Instructions ?Recorded ?Confirmed cholecalciferol (vitamin D3) 100 4,000 unit PO DAILY 07/03/19 08/13/24 mcg (4,000 unit) capsule loratadine 10 mg tablet (Claritin) 10 mg PO DAILY PRN 07/20/19 08/13/24 naproxen 250 mg tablet 250 - 500 mg (1 - 2 x 250 mg) PO 12/01/20 08/13/24 BID PRN Moderate pain or swelling #60 tabs sildenafil 50 mg tablet 50 mg PO DAILY PRN sexual activity 07/22/23 08/13/24 #30 tabs hydroxyzine HCl 25 mg tablet 25 mg PO DAILY AM anxiety 03/27/24 08/13/24 albuterol sulfate 90 mcg/actuation 2 puff inhalation Q4H PRN 04/13/24 08/13/24 aerosol inhaler shortness of breath or wheezing #18 grams semaglutide (weight loss) 1 mg/0.5 1 mg (0.5 mL) subcut Q7D #2 mL 11/16/24 11/16/24 mL subcutaneous pen injector (Wecharlettevy) sumatriptan succinate 100 mg tablet See Rx Instructions PO .COMPLEX #9 11/16/24 11/16/24 tabs lurasidone 20 mg tablet (Latuda) 20 mg PO DAILY #90 tabs 04/08/25 prednisone 20 mg tablet 40 mg (2 x 20 mg) PO ONCE #10 tabs 04/16/25 Previous Rx's ?Medication ?Instructions ?Recorded naproxen 250 mg tablet 250 - 500 mg (1 - 2 x 250 mg) PO 12/01/20 BID PRN Moderate pain or swelling #60 tabs sildenafil 50 mg tablet 50 mg PO DAILY PRN sexual activity 07/22/23 #30 tabs albuterol sulfate 90 mcg/actuation 2 puff inhalation Q4H PRN 04/13/24 aerosol inhaler shortness of breath or wheezing #18 grams semaglutide (weight loss) 1 mg/0.5 1 mg (0.5 mL) subcut Q7D #2 mL 11/16/24 mL subcutaneous pen injector (Wegovy) sumatriptan succinate 100 mg tablet See Rx Instructions PO .COMPLEX #9 11/16/24 tabs lurasidone 20 mg tablet (Latuda) 20 mg PO DAILY #90 tabs 04/08/25 prednisone 20 mg tablet 40 mg (2 x 20 mg) PO ONCE #10 tabs 04/16/25 Allergies Allergy/AdvReac Type Severity Reaction Status Date / Time nut - unspecified Allergy Intermediate swelling Verified 11/16/24 13:24 in joints and rash diphenhydramine (From AdvReac confusion Verified 08/13/24 13:02 Benadryl) General Stated Complaint: RespSymp SEEMA: 4 Exam Narrative Exam Narrative: Patient is alert and oriented. Patient is speaking in complete sentences. No respiratory distress observed. Lungs are clear to auscultation. Course Vital Signs Vital signs: Vital Signs Temperature 36.7 C 04/16/25 21:33 Pulse 81 04/16/25 21:33 Respiratory Rate 18 04/16/25 21:33 Blood Pressure 130/90 04/16/25 21:33 Pulse Oximetry 97 04/16/25 21:33 Temperature 36.7 C 04/16/25 21:33 Temperature Source Oral 04/16/25 21:33 Pulse 90 04/16/25 22:49 Respiratory Rate 18 04/16/25 22:49 Respiratory Effort Normal 04/16/25 21:41 Respiratory Depth Normal 04/16/25 21:41 Blood Pressure 130/90 04/16/25 21:33 Pulse Oximetry 100 04/16/25 22:49 Oxygen Delivery Method Room Air 04/16/25 21:33 Oxygen Flow Rate 0 04/16/25 21:33 Pain Level 3 04/16/25 21:33 Lab/Test Results Lab/Test Results: Laboratory Tests Range/Units 04/16/25 21:45 COVID-19 Source Nasopharynx SARS-CoV-2 (PCR) (Negative) Negative Influenza Type A (PCR) (Negative) Negative Influenza Type B (PCR) (Negative) Negative RSV (PCR) (Negative) Negative Medical Decision Making Chest x-ray shows no acute abnormality. Initial Assessment: 29-year-old gentleman with history of bipolar disorder, Nicole Danlos, presents with cough and chest congestion for the last 2 weeks. Denies fever or chills. Concerned because he doesn't feel like he is improving. History of exercise-induced asthma, has not used his inhaler. Patient is alert and oriented, in no respiratory distress, lungs are clear to auscultation, speaking in complete sentences. ED Course: - Chest x-ray per radiology interpretation of my review does not show evidence of acute abnormality. - Patient was given prednisone and albuterol spacer. - No indication for antibiotics at this time. - Return precautions reviewed. Final Assessment: Patient with persistent cough and chest congestion for 2 weeks, no fever or chills, history of exercise-induced asthma. Chest x-ray normal. Treated with prednisone and albuterol spacer. No antibiotics needed. Clinical Impression: - Cough and chest congestion Disposition: - Discharged home in stable condition with stable vitals. - Follow-Up: Recheck in 1 week. MDM Components Evaluation: - Number of Differential Diagnoses or Management Options: Cough and chest congestion - Amount and Complexity of Data Reviewed: Chest x-ray - Risk of Complication and Morbidity or Mortality: Low risk based on current condition and treatment plan. Quality:SDOH Health Related Social Needs: No Data to Display PFSH All Active Problems (Updated 04/16/25 @ 22:37 by KEYONNA Salmeron) Bronchitis (Acute) Acute low back pain (Acute) Bipolar 1 disorder (Acute) Nicole-Danlos syndrome (Acute) Bilateral knee pain (Acute) Light headed (Acute) Routine general medical examination at a health care facility (Acute) Dizzy spells (Acute) Migraine headache without aura (Acute) Chronic headache (Acute) Encounter for screening for other viral diseases (Acute) SLAP lesion of right shoulder (Acute) Tendonitis of long head of biceps brachii of right shoulder (Acute) Fatigue (Acute) Joint ache (Acute) Instability of right shoulder joint (Acute) Insomnia (Acute) Migraine headache with aura (Acute) Medical History Multiple benign nevi (~07/2024) 07/20/24 Dermatology Solar lentigo (~07/2024) 07/20/24 Dermatology History of bipolar disorder History of shingles 10/2020 Asthma new dx January 2020 No significant past medical history Surgical History S/P bilateral inguinal hernia repair Family History Mother Anxiety Migraine COPD (chronic obstructive pulmonary disease) Father Anxiety Paternal Grandfather Lung cancer Social History Smoking/Tobacco Use Status: Never Smokeless tobacco user: other (THC) Smoking risk assessment performed?: Yes Alcohol Intake: current Alcohol Intake frequency: holidays/special occasions only Alcohol type: beer and hard liquor Drug use: Daily Substance use type: marijuana Counseling given: No Caregiver/Support person: No Household members: none Housing: apartment Number of Children: 0 Communication Needs: Corrective Lenses 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 [employer] Current 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: male How often do you talk on the phone with friends or family?: three or more times per week How often do you get together with friends or relatives?: three or more times per week Panel score (0-1 are the most socially isolated patients): 1 What type of physical activity do you participate in: irregular exercise and other Details: Go to Gym 3x/week Duration: > 90 minutes/day Frequency: 3-4 times per week Seatbelt use: always Water heater temp set <120 deg: Yes Working smoke detector in home: Yes Fire extinguisher in home: Yes Carbon monox detector in home: Yes Firearms in home: No Do you feel safe at home: Yes Do you feel safe in your relationship?: Yes
== END 2025-04-16 22:49 | disposition home or self-care (01) ==
PROVIDERS: Emergency Provider Physician Assistant; PCP Nurse Practitioner
DX: J20.9 Acute bronchitis, unspecified (principal); Q79.60 Ehlers-Danlos syndrome, unspecified; Z79.899 Other long term (current) drug therapy
CPT/HCPCS: 87637; 99284; 71046; J7512

== ENCOUNTER 2025-06-16 14:47 | Observation (INO) | payer OTHER, SELFPAY ==
[2025-06-16] VITALS (54 sets, daily range): BP systolic 105–138; BP diastolic 35–82; PULSE 70–99; RESP 10–24; TEMP 36.6–37; O2SAT 93–100
--- NOTE | 2025-06-16 14:45 | RT.EKG_ITS ---
APPROVED REPORT Exam: Resting ECG Reason for Exam: chest pain Patient Location: E HR:81 bpm ECG Measurements Heart Rate 81 AXIS IN 147 P 72 QRSd 83 QRS 24 QT 371 T 23 QTc 430 Conclusion Sinus rhythm...normal P axis, V-rate 60- 99 Probable left atrial enlargement...P >50mS, <-0.10mV V1 Sinus rhythm normal axis normal intervals no acute ischemic changes
--- NOTE | 2025-06-16 15:12 | ED.GENADUL_ITS ---
Discharge Plan Disposition Patient Disposition: Admit to [facility] Condition: Stable Discharge Details Clinical Impression: Hypoglycemia Primary Care Provider: Edel Abdalla ED Provider: Rui Huynh Home Meds and New Rx's Prescriptions: No Action sildenafil 50 mg tablet 50 mg PO DAILY PRN (Reason: sexual activity) Qty: 30 5RF Rx Instructions: administer 30 minutes to 4 hours before activity albuterol sulfate 90 mcg/actuation HFA aerosol inhaler 2 puff IH Q4H PRN (Reason: shortness of breath or wheezing) Qty: 18 12RF cholecalciferol (vitamin D3) 4,000 unit capsule 4,000 unit PO DAILY loratadine [Claritin] 10 mg tablet 10 mg PO DAILY PRN sumatriptan succinate 100 mg tablet See Rx Instructions PO .COMPLEX Qty: 9 3RF Rx Instructions: take 1 tab at onset of headache; if no relief, may repeat 1 tab after at least 2 hrs; max = 2 tabs/24 hrs PO Wegovy 1 mg/0.5 mL pen injector 1 mg subcut Q7D Qty: 2 5RF Rx Instructions: Weeks 9-12 lurasidone [Latuda] 20 mg tablet 20 mg PO DAILY Qty: 90 2RF Rx Instructions: must administer with food (at least 350 calories) hydroxyzine HCl 25 mg tablet 25 mg PO DAILY AM Rx Instructions: Take before meals. Take with Latuda. naproxen 250 mg tablet 250 - 500 mg PO BID PRN (Reason: Moderate pain or swelling) Qty: 60 0RF HPI General Date/Time Provider Initiated Documentation: 06/16/25 14:49 . HPI Narrative: 29-year-old male on semaglutide recently restarted on this medication after being off the medication for over a month presents with nausea shakiness dizziness sweating, denies chest pain or shortness of breath denies diarrhea or vomiting. No headache or recent trauma. Related Data Home Medications ?Medication ?Instructions ?Recorded ?Confirmed cholecalciferol (vitamin D3) 100 4,000 unit PO DAILY 0 07/03/19 06/16/25 mcg (4,000 unit) capsule loratadine 10 mg tablet (Claritin) 10 mg PO DAILY PRN 07/20/19 06/16/25 naproxen 250 mg tablet 250 - 500 mg (1 - 2 x 250 mg ) PO 12/01/20 06/16/25 BID PRN Moderate pain or swelling #60 tabs sildenafil 50 mg tablet 50 mg PO DAILY PRN sexual ac tivity 07/22/23 06/16/25 #30 tabs hydroxyzine HCl 25 mg tablet 25 mg PO DAILY AM anxiety 03/27/24 06/16/25 albuterol sulfate 90 mcg/actuation 2 puff inhalation Q 4H PRN 04/13/24 06/16/25 aerosol inhaler shortness of breath or wheez ing #18 grams sumatriptan succinate 100 mg tablet See Rx Instruction s PO .COMPLEX #9 11/16/24 06/16/25 tabs lurasidone 20 mg tablet (Latuda) 20 mg PO DAILY #90 ta bs 06/14/25 06/16/25 semaglutide (weight loss) 1 mg/0.5 1 mg (0.5 mL) subcu t Q7D #2 mL 06/14/25 06/16/25 mL subcutaneous pen injector (Wegovy) Previous Rx's ?Medication ?Instructions ?Recorded naproxen 250 mg tablet 250 - 500 mg (1 - 2 x 250 mg ) PO 12/01/20 BID PRN Moderate pain or swelling #60 tabs sildenafil 50 mg tablet 50 mg PO DAILY PRN sexual ac tivity 07/22/23 #30 tabs albuterol sulfate 90 mcg/actuation 2 puff inhalation Q 4H PRN 04/13/24 aerosol inhaler shortness of breath or wheez ing #18 grams sumatriptan succinate 100 mg tablet See Rx Instruction s PO .COMPLEX #9 11/16/24 tabs lurasidone 20 mg tablet (Latuda) 20 mg PO DAILY #90 ta bs 06/14/25 semaglutide (weight loss) 1 mg/0.5 1 mg (0.5 mL) subcu t Q7D #2 mL 06/14/25 mL subcutaneous pen injector (Wegovy) Allergies Allergy/AdvReac Type Severity Reaction Status Date / Time nut - unspecified Allergy Intermediate swelling Verified 06/16/25 14:52 in joints and rash diphenhydramine (From AdvReac confusion Verified 06/16/25 14:52 Benadryl) General Stated Complaint: Dizzy/Sync SEEMA: 3 Exam Narrative Exam Narrative: General: alert, no acute distress HEENT: normocephalic, atraumatic, neck supple, pupils equal round reactive to light, moist mucous membranes, tolerating secretions, normal voice, no rhinorrhea or otorrhea Respiratory: normal respiratory effort, lungs clear bilaterally, no wheezes rales or rhonchi Cardiac: regular rate and rhythm, no murmurs rubs or gallops; equal pulses bilaterally, warm well perfused Abdominal: soft, nontender, nondistended; no organomegaly or palpable masses MSK: normal range of motion of extremities, warm, well perfused Skin: warm, dry, no rashes or lesions Neuro: AAOx3, CN II-XII intact, 5/5 strength bilateral upper and lower extremities, normal speech, no ataxia Psych: normal mood, normal affect, calm, cooperative Course Vital Signs Vital signs: Vital Signs Pulse 83 06/16/25 14:49 Respiratory Rate 18 06/16/25 14:49 Blood Pressure 138/82 06/16/25 14:49 Pulse Oximetry 98 06/16/25 14:49 Pulse 83 06/16/25 14:49 Respiratory Rate 18 06/16/25 14:49 Blood Pressure 138/82 06/16/25 14:49 Pulse Oximetry 98 06/16/25 14:49 Oxygen Delivery Method Room Air 06/16/25 14:49 Oxygen Flow Rate 0 06/16/25 14:49 Medical Decision Making 29-year-old male recently restarted semaglutide after over 1 month hiatus, presents after experiencing nausea shakiness diaphoresis and spinning sensation, no vomiting no diarrhea no abdominal pain, neurologically intact airway breathing and circulation intact, cranial nerves intact normal speech no ataxia, 5-5 strength upper and lower extremities, sensation intact, hemodynamically stable blood sugar 85 on arrival, patient did drink some juice right before arrival consider transient hypoglycemia versus electrolyte derangement versus dehydration versus vasovagal versus orthostatic event lower suspicion for arrhythmia ACS PE or aortic pathology, no evidence of CVA or traumatic or toxicologic process at this time. Lower suspicion for pancreatitis. High clinical suspicion for symptomatology related to recent reinitiation of semaglutide therapy. Will provide fluid hydration antiemetics will obtain basic labs, EKG normal sinus rhythm normal axis nonischemic. Disposition pending reassessment and results 16: 54 feeling somewhat improved up and ambulatory, repeat blood sugar 79, patient has been given a snack. No altered mental status. No vomiting. Remains hemodynamically stable. 20: 17 patient was comfortably no acute distress tolerating p.o. Repeat blood sugar 95. Will continue observe here in department. Will recheck another blood sugar to ensure no decrease. 20: 59 patient's blood sugar decreased to 70s on repeat, I have placed on D5 half NS drip, will need every 2 to 3-hour fingerstick patient maintained symptomatic but will require further observation, likely related to medication PFSH All Active Problems (Updated 06/16/25 @ 21:17 by Rui Huynh MD) Hypoglycemia (Acute) Acute low back pain (Acute) Bipolar 1 disorder (Acute) Nicole-Danlos syndrome (Acute) Bilateral knee pain (Acute) Light headed (Acute) Routine general medical examination at a health care facility (Acute) Dizzy spells (Acute) Migraine headache without aura (Acute) Chronic headache (Acute) Encounter for screening for other viral diseases (Acute) SLAP lesion of right shoulder (Acute) Tendonitis of long head of biceps brachii of right shoulder (Acute) Fatigue (Acute) Joint ache (Acute) Instability of right shoulder joint (Acute) Insomnia (Acute) Migraine headache with aura (Acute) Medical History Multiple benign nevi (~07/2024) 07/20/24 Dermatology Solar lentigo (~07/2024) 07/20/24 Dermatology History of bipolar disorder History of shingles 10/2020 Asthma new dx January 2020 No significant past medical history Surgical History S/P bilateral inguinal hernia repair Family History Mother Anxiety Migraine COPD (chronic obstructive pulmonary disease) Father Anxiety Paternal Grandfather Lung cancer Social History Smoking/Tobacco Use Status: Never Smokeless tobacco user: other (THC) Smoking risk assessment performed?: Yes Alcohol Intake: current Alcohol Intake frequency: holidays/special occasions only Alcohol type: beer and hard liquor Drug use: Daily Substance use type: marijuana Counseling given: No Caregiver/Support person: No Household members: none Housing: apartment Number of Children: 0 Communication Needs: Corrective Lenses 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 [employer] Current 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: male How often do you talk on the phone with friends or family?: three or more times per week How often do you get together with friends or relatives?: three or more times per week Panel score (0-1 are the most socially isolated patients): 1 What type of physical activity do you participate in: irregular exercise and other Details: Go to Gym 3x/week Duration: > 90 minutes/day Frequency: 3-4 times per week Seatbelt use: always Water heater temp set <120 deg: Yes Working smoke detector in home: Yes Fire extinguisher in home: Yes Carbon monox detector in home: Yes Firearms in home: No Do you feel safe at home: Yes Do you feel safe in your relationship?: Yes
[2025-06-16 15:17] LABS: Abs Immature Grans 0.04 10^3/uL (0.0-0.06); HCT 42.5 % (40.0-50.0); HGB 14.1 g/dL (13.5-17.5); Immature Grans % 0.7 %; MCH 28.8 pg (27.0-33.0); MCHC 33.2 % (32.0-36.0); MCV 87 fL (80-95); MPV 9.6 fL (8.0-11.0); Platelet Count 268 10^3/uL (130-400); RBC 4.89 10^6/uL (4.36-5.78); RDW 11.9 % (11.8-14.1); RDW-SD 37.8 fL; WBC 5.95 10^3/uL (4.4-10.8)
[2025-06-16] MEDS: Normal Saline 1,000 ML 1000 ML IV (15:26)
[2025-06-16] MEDS: Ondansetron 4 MG/2 ML VIAL IVP (15:27)
[2025-06-16 16:01] LABS: ALT 48 U/L (16-63); AST 21 U/L (15-37); Albumin 4.2 g/dL (3.4-5.0); Alkaline Phosphatase 78 U/L (46-116); Anion Gap 7.9 mmol/L (3-11); BUN 13 mg/dL (7-18); Bilirubin, Total 0.3 mg/dL (0.2-1.0); CO2 31.1 mmol/L (21.0-32.0); Calcium 9.2 mg/dL (8.5-10.1); Chloride 103 mmol/L (98-107); Estimated GFR 104.48 (mL/min/1.73m2); Glucose 95 mg/dL (74-106); Lipase 93 U/L (<78); Potassium 3.9 mmol/L (3.5-5.1); Sodium 142 mmol/L (136-145); Total Protein 7.7 g/dL (6.4-8.2)
[2025-06-16] MEDS: Lactated Ringers 1,000 ML 1000 ML IV (16:53)
[2025-06-16] MEDS: Dextrose 25%-Water 10 ML SYR IVP (18:19)
--- NOTE | 2025-06-16 21:16 | HPE_ITS ---
Date of service: 06/16/25 Time of Service: 21:25 Assessment and Plan Assessment and plan (1) Hypoglycemia: Start date: 06/16/25 Status: Acute Assessment and plan: This is a 29-year-old gentleman who is on Wegovy for weight control who after being off 1 month, restarted his higher dose with symptoms of hypoglycemia within 1 hour after the subcutaneous injection. He was at work at the time. He did have some slight confusion but no tachycardia and did have shakiness with dizziness, nausea and sweating. After IV and oral glucose his glucometer did remain below 100 and he was observed to be monitored glucometers every 4 hours overnight. If he remains stable and is eating well without symptoms he should be able to be discharged early in the morning. Long-term he should adjust his Wegovy dosing to initiate slowly if he does restart. His BMI is not that elevated. He is a full code. (2) Bipolar 1 disorder: Status: Chronic Assessment and plan: Continue outpatient medical therapy. (3) Migraine headache without aura: Status: Chronic Assessment and plan: Is a patient with hypoglycemia, rescue symptomatic therapy if needed. History of Present Illness History of Present Illness Chief Complaint: Nausea/sweating and shakiness with confusion. Narrative: This is a 29-year-old male patient who has been off Wegovy for month and then restarted it recently as his usual dose of 1 mg subcutaneously began to have symptoms of hypoglycemia as described in his chief complaint. He was found to be mildly hypoglycemic and reports the ED for evaluation. He continued to have some symptoms with decreased intake and required D5 half-normal saline infusion to maintain glucose near 100. There is no past medical history of diabetes on his medical chart and this treatment is being taken for obesity. He has a mildly elevated BMI. He was previously on 1 mg subcutaneously and after being up 1 month, did not do the usual tapering from 0.25 mg and then 0.5 mg before this larger dose. Hypoglycemia is a rare side effect of this medication then it did occur within an hour of his injection. There may have been some component of hypersensitivity to low blood sugar with the glucometer measurements however much below 70. He will be admitted to observe for continued hypoglycemic episodes and IV fluids overnight. Glucometer should be checked every 4 hours at least and if symptomatic. He is a full code. Review of Systems Narrative: 13 point review of systems otherwise unrevealing or stable. PFSH All Active Problems (Updated 06/17/25 @ 08:57 by Troy Vizcaino) Hypoglycemia (Acute) Acute low back pain (Acute) Bipolar 1 disorder (Chronic) Nicole-Danlos syndrome (Acute) Bilateral knee pain (Acute) Light headed (Acute) Routine general medical examination at a health care facility (Acute) Dizzy spells (Acute) Migraine headache without aura (Chronic) Chronic headache (Acute) Encounter for screening for other viral diseases (Acute) SLAP lesion of right shoulder (Acute) Tendonitis of long head of biceps brachii of right shoulder (Acute) Fatigue (Acute) Joint ache (Acute) Instability of right shoulder joint (Acute) Insomnia (Acute) Migraine headache with aura (Acute) Medical History Multiple benign nevi (~07/2024) 07/20/24 Dermatology Solar lentigo (~07/2024) 07/20/24 Dermatology History of bipolar disorder History of shingles 10/2020 Asthma new dx January 2020 No significant past medical history Surgical History S/P bilateral inguinal hernia repair Family History Mother Anxiety Migraine COPD (chronic obstructive pulmonary disease) Father Anxiety Paternal Grandfather Lung cancer Social History Smoking/Tobacco Use Status: Never Smokeless tobacco user: other (THC) Smoking risk assessment performed?: Yes Alcohol Intake: current Alcohol Intake frequency: holidays/special occasions only Alcohol type: beer and hard liquor Drug use: Daily Substance use type: marijuana Counseling given: No Caregiver/Support person: No Household members: none Housing: apartment Number of Children: 0 Communication Needs: Corrective Lenses 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 [employer] Current 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: male How often do you talk on the phone with friends or family?: three or more times per week How often do you get together with friends or relatives?: three or more times per week Panel score (0-1 are the most socially isolated patients): 1 What type of physical activity do you participate in: irregular exercise and other Details: Go to Gym 3x/week Duration: > 90 minutes/day Frequency: 3-4 times per week Seatbelt use: always Water heater temp set <120 deg: Yes Working smoke detector in home: Yes Fire extinguisher in home: Yes Carbon monox detector in home: Yes Firearms in home: No Do you feel safe at home: Yes Do you feel safe in your relationship?: Yes Meds Allergies and Home Medications Allergies Allergy/AdvReac Type Severity Reaction Status Date / Time nut - unspecified Allergy Intermediate swelling Verified 06/16/25 14:52 in joints and rash diphenhydramine (From AdvReac confusion Verified 06/16/25 14:52 Benadryl) Home Medications ?Medication ?Instructions ?Recorded ?Confirmed ?Type cholecalciferol (vitamin D3) 100 4,000 unit PO DAILY 0 07/03/19 06/16/25 History mcg (4,000 unit) capsule loratadine 10 mg tablet (Claritin) 10 mg PO DAILY PRN 07/20/19 06/16/25 History naproxen 250 mg tablet 250 - 500 mg (1 - 2 x 250 mg ) PO 12/01/20 06/16/25 Rx BID PRN Moderate pain or swelling #60 tabs sildenafil 50 mg tablet 50 mg PO DAILY PRN sexual ac tivity 07/22/23 06/16/25 Rx #30 tabs hydroxyzine HCl 25 mg tablet 25 mg PO DAILY AM anxiety 03/27/24 06/16/25 History albuterol sulfate 90 mcg/actuation 2 puff inhalation Q 4H PRN 04/13/24 06/16/25 Rx aerosol inhaler shortness of breath or wheez ing #18 grams sumatriptan succinate 100 mg tablet See Rx Instruction s PO .COMPLEX #9 11/16/24 06/16/25 Rx tabs lurasidone 20 mg tablet (Latuda) 20 mg PO DAILY #90 ta bs 06/14/25 06/16/25 Rx semaglutide (weight loss) 1 mg/0.5 1 mg (0.5 mL) subcu t Q7D #2 mL 06/14/25 06/16/25 Rx mL subcutaneous pen injector (Wegovy) Exam Narrative Exam Narrative: General: Patient appears appropriate for age, well kempt, alert and oriented x 3 and in no acute distress. HEENT: Normocephalic, eyes with pupils equal and reactive to light symmetrically, extraocular movement intact and sclera anicteric. Oropharynx with moist Koza and good dentition. Neck: Supple without JVD. Back: Normal posture without CVA tenderness. Lungs: Clear to oscillation percussion with no focalizing rales or rhonchi. Vesicular breath sounds diffusely. Normal aeration. Heart: Regular rate and rhythm with no murmurs or gallops appreciated. Abdomen: Mildly obese, S soft and nontender to palpation with no palpable hepatosplenomegaly. Bowel sounds positive all quadrants. Genitalia/rectal: Exam deferred. Extremities: Without clubbing, cyanosis or pitting edema. Normal peripheral pulses all extremities. Skin: Normal color, warm and dry. Neuro: Cranial nerves II through XII gross intact, no focalizing motor deficits and no tremor. Psych: Slightly anxious, normal mood. No abnormal thought processes. Remote and recent memory intact. Results Labs 06/17/25 06:30 06/17/25 06:30 Labs: Laboratory Results - last 24 hr 06/16/25 15:11 WBC 5.95 RBC 4.89 Hgb 14.1 Hct 42.5 MCV 87 MCH 28.8 MCHC 33.2 RDW 11.9 Plt Count 268 MPV 9.6 Immature Gran % 0.7 Neutrophils % 67.2 Lymphocytes % 20.2 Monocytes % 9.4 Eosinophils % 1.3 Basophils % 1.2 Nucleated RBC % 0.0 Absolute Neutrophils 4.00 Absolute Lymphocytes 1.20 Absolute Monocytes 0.56 Absolute Eosinophils 0.08 Absolute Basophils 0.07 Sodium 142 Potassium 3.9 Chloride 103 Carbon Dioxide 31.1 Anion Gap 7.9 BUN 13 Creatinine 1.0 Est GFR (CKD-EPI 2020) 104.48 Glucose 95 Calcium 9.2 Total Bilirubin 0.3 AST 21 ALT 48 Alkaline Phosphatase 78 Total Protein 7.7 Albumin 4.2 Lipase 93 H Last Vital Signs Temp 37.0 C 06/16/25 15:50 Pulse 83 06/16/25 14:49 Resp 16 06/16/25 14:56 BP 138/82 06/16/25 14:49 Pulse Ox 98 06/16/25 14:49 PAWSS Have you Been Recently Intoxicated or Drunk Within the Last 30 days?: No Have you Ever Experienced Previous Episodes of Alcohol Withdrawal?: No Have you ever Experienced Withdrawal Seizures?: No Have you ever Experienced Delirium Tremens(DT)s?: No Have you ever undergone Alcohol Rehabilitation Treatment (i.e, inpt ot outpatient treatment programs)?: No Have you ever Experienced Blackouts?: No Have you ever Combined Alcohol with other Downers within the last 90 days?: No Have you ever Combined Alcohol with any other Substance of Abuse during the last 90 days?: No Result: 0 Time Spent Time spent with Patient: 55-74 minutes Time was spent: preparing to see the patient(eg.review tests), obtaining and/or reviewing separately otained hiistory, ordering medications,tests, procedures, indepentently interpreting results, counseling the patient and care coordination
[2025-06-16] MEDS: DEXTROSE 5%-0.45% SALINE 1,000 ML 150 ML IV (21:26)
--- NOTE | 2025-06-16 22:23 | W.PC.ACHO ---
Registration Status: REG ER Primary Language: Preferred Language: ED Information & Data Chief Complaint Dizzy/Sync 06/16/25 15:19 Chief Complaint Dizzy/Sync 06/16/25 15:14 Triage Note room spinning, nausea, shaky 06/16/25 14:49 diaphoretic, took wegovvy injection at 1230 has not taken x1 mth started at same dose Blood sugar 85 in trg after cup juice Medical / Surgical History (Last Reviewed 06/16/25 @ 21:29 by Troy Vizcaino) Multiple benign nevi (~07/2024) Solar lentigo (~07/2024) History of bipolar disorder History of shingles Asthma No significant past medical history (Last Reviewed 06/16/25 @ 21:29 by Troy Vizcaino) S/P bilateral inguinal hernia repair Most Recent Vital Signs Temperature 37.0 C 06/16/25 15:50 Temperature Source Oral 06/16/25 15:50 Pulse 75 06/16/25 22:18 Pulse 75 06/16/25 22:10 Respiratory Rate 21 06/16/25 22:18 Respiratory Effort Normal 06/16/25 14:56 Respiratory Depth Normal 06/16/25 14:56 Respiratory Pattern Normal 06/16/25 14:56 Blood Pressure 105/35 L 06/16/25 20:01 Blood Pressure Mean 60 06/16/25 20:01 Pulse Oximetry 96 06/16/25 22:18 Oxygen Delivery Method Room Air 06/16/25 14:49 Oxygen Flow Rate 0 06/16/25 14:49 Allergies nut - unspecified Allergy (Intermediate, Verified 06/16/25 14:52) swelling in joints and rash CASHEWS diphenhydramine (From Benadryl) Adverse Reaction (Verified 06/16/25 14:52) confusion Precautions Isolation Standard precaution 06/16/25 15:19 Active Medications Generic Name Dose Route Start Last Admin Trade Name Freq PRN Reason Stop Dose Admin Dextrose/Sodium Chloride 1,000 mls @ 150 mls/hr 06/16/25 21:00 06/16/25 21:26 Dextrose 5%-0.45% Ns IV 150 mls/hr INFUSION DOMITILA Administration IV IV Catheter Type [Right Saline Lock Antecubital] IV Catheter Gauge [Right 20 Antecubital] Diagnostics 06/16/25 Range/Units 15:11 WBC 5.95 (4.4-10.8) 10^3/uL RBC 4.89 (4.36-5.78) 10^6/uL Hgb 14.1 (13.5-17.5) g/dL Hct 42.5 (40.0-50.0) % MCV 87 (80-95) fL MCH 28.8 (27.0-33.0) pg MCHC 33.2 (32.0-36.0) % RDW 11.9 (11.8-14.1) % Plt Count 268 (130-400) 10^3/uL MPV 9.6 (8.0-11.0) fL Immature Gran % 0.7 % Neutrophils % 67.2 % Lymphocytes % 20.2 % Monocytes % 9.4 % Eosinophils % 1.3 % Basophils % 1.2 % Nucleated RBC % 0.0 (0.0-0.3) % Absolute Neutrophils 4.00 (1.2-6.7) 10^3/uL Absolute Lymphocytes 1.20 (1.2-3.4) 10^3/uL Absolute Monocytes 0.56 (0.1-0.8) 10^3/uL Absolute Eosinophils 0.08 (0.0-0.7) 10^3/uL Absolute Basophils 0.07 (0.0-0.2) 10^3/uL Sodium 142 (136-145) mmol/L Potassium 3.9 (3.5-5.1) mmol/L Chloride 103 (98-107) mmol/L Carbon Dioxide 31.1 (21.0-32.0) mmol/L Anion Gap 7.9 (3-11) mmol/L BUN 13 (7-18) mg/dL Creatinine 1.0 (0.70-1.30) mg/dL Est GFR (CKD-EPI 2020) 104.48 (mL/min/1.73m2) Glucose 95 (74-106) mg/dL Calcium 9.2 (8.5-10.1) mg/dL Total Bilirubin 0.3 (0.2-1.0) mg/dL AST 21 (15-37) U/L ALT 48 (16-63) U/L Alkaline Phosphatase 78 (46-116) U/L Total Protein 7.7 (6.4-8.2) g/dL Albumin 4.2 (3.4-5.0) g/dL Lipase 93 H (<78) U/L Fmumd-jp-Cocy Documentation Fingerstick Glucose Start: 06/16/25 14:51 Freq: Status: Complete Protocol: Activity Type Activity Date Activity User E-sign Co-sign Detail Recorded Client Recorded Date Recorded By Document 06/16/25 14:50 BKG DAEMON(9) NVT-BG05 06/16/25 14:51 BKG DAEMON(10) Fingerstick Glucose Start: 06/16/25 14:51 Freq: .Stat Status: Active Protocol: Activity Type Activity Date Activity User E-sign Co-sign Detail Recorded Client Recorded Date Recorded By Document 06/16/25 20:46 BKG DAEMON(10) NVT-BG05 06/16/25 20:46 BKG DAEMON(10) Intake and Output - 24 Hour Total 06/16/25 14:47 thru 06/16/25 17:53 Intake Total 2009 Balance 2009 Weight 94 kg Intake: IV 2009 Falls Risk Assessment History of Falls No History 06/16/25 14:56 Fall Total Score 0 06/16/25 14:56 Level of Risk Standard/Low Risk 06/16/25 14:56 Problems (Last Reviewed 06/16/25 @ 21:29 by Troy Vizcaino) Hypoglycemia (Acute) v v v v v v v v v Sending and/or Receiving Nurses: Please use comment section below to note any information pertinent to the patient hand-off not included above. Information / Comments: pt a dose of wegovy, felt lucille, weakness, BG was low at the ER 71-85. pt provided with food and juice, but was hard to keep his BG up, D50% was given, pt A&OX4, independent, voided, stable vital sign, on RA with O2 sat above 92% Report received from: Matias Parry
[2025-06-17 03:08] VITALS: BP 118/68; PULSE 85; RESP 17; TEMP 36.4; O2SAT 95
[2025-06-17] MEDS: DEXTROSE 5%-0.45% SALINE 1,000 ML 150 ML IV ×2 (04:01→11:28)
[2025-06-17 07:02] LABS: HCT 41.1 % (40.0-50.0); HGB 13.8 g/dL (13.5-17.5); MCH 29.4 pg (27.0-33.0); MCHC 33.6 % (32.0-36.0); MCV 87 fL (80-95); MPV 9.7 fL (8.0-11.0); Platelet Count 251 10^3/uL (130-400); RBC 4.70 10^6/uL (4.36-5.78); RDW 11.9 % (11.8-14.1); RDW-SD 38.4 fL; WBC 5.73 10^3/uL (4.4-10.8)
[2025-06-17 07:33] VITALS: BP 121/75; PULSE 73; RESP 15; TEMP 37.3; O2SAT 95
[2025-06-17 07:40] LABS: ALT 45 U/L (16-63); AST 24 U/L (15-37); Albumin 3.6 g/dL (3.4-5.0); Alkaline Phosphatase 65 U/L (46-116); Anion Gap 5.6 mmol/L (3-11); BUN 8 mg/dL (7-18); Bilirubin, Total 0.4 mg/dL (0.2-1.0); CO2 31.4 mmol/L (21.0-32.0); Calcium 9.1 mg/dL (8.5-10.1); Chloride 104 mmol/L (98-107); Estimated GFR 118.57 (mL/min/1.73m2); Glucose 89 mg/dL (74-106); Lipase 32 U/L (<78); Magnesium 1.9 mg/dL (1.8-2.4); Potassium 3.8 mmol/L (3.5-5.1); Sodium 141 mmol/L (136-145); Total Protein 6.8 g/dL (6.4-8.2)
[2025-06-17] MEDS: Cholecalciferol (Vitamin D3) 1,000 UNIT TAB 4000 UNITS PO (08:31)
[2025-06-17] MEDS: Lurasidone 20 MG TAB PO (08:32)
[2025-06-17] MEDS: Normal Saline Flush 10 ML SYR IVP (08:33)
--- NOTE | 2025-06-17 09:21 | PDOC.CMIN ---
Care Management Initial Assmt Initial Assessment Reason for Hospitalization: Hypoglycemia Advance Directives Advance Directives: Do you have an Advance Directive: N 12/20/23, 13:46 AD On File at [facility]: N 12/20/23, 13:46 Date Asked 06/16/25 06/16/25, 14:49 AD Date Reviewed COLST On File at [facility] No 03/27/24, 18:22 COLST Date Scanned Code Status Resuscitation Status Full Code Care Team Visit Care Team Role Provider Type Isela Frankel APRN MD [facility] STAFF PHYSICIAN Edel Abdalla, VALERY Primary Care Provider NURSE PRACTITIONER Rui Huynh MD Emergency Provider [facility] STAFF PHYSICIAN Troy Vizcaino Admit Provider NON-[facility] STAFF PHYSICIAN Attending Provider Social Determinants of Health Screening Social Determinants of health last assessed in clinic: 06/16/25 Will the Patient Participate in the Screening?: Yes Do you worry about having a steady place to live?: no Problems where you live: no known problems In the past 12 months, have you had to go without electric, gas, oil or water in your home?: no Has lack of transportation kept you from medical appointments or from doing things needed for daily living?: no Has anyone in your life made you feel unsafe or unsupported?: no How hard is it for you to pay for the very basics like food, housing, medical care, and heating? Would you say it is:: Not hard at all Do you want help finding or keeping work or a job?: I do not need or want help If for any reason you need help with day-to-day activities such as bathing, preparing meals, shopping, managing finances, etc., do you get the help you need?: I don?t need any help How often do you feel lonely or isolated from those around you?: Never Do you speak a language other than Kyrgyz at home?: No Does the patient want assistance with any of the above?: No PFSH All Active Problems (Updated 06/17/25 @ 08:57 by Troy Vizcaino) Hypoglycemia (Acute) Acute low back pain (Acute) Bipolar 1 disorder (Chronic) Nicole-Danlos syndrome (Acute) Bilateral knee pain (Acute) Light headed (Acute) Routine general medical examination at a health care facility (Acute) Dizzy spells (Acute) Migraine headache without aura (Chronic) Chronic headache (Acute) Encounter for screening for other viral diseases (Acute) SLAP lesion of right shoulder (Acute) Tendonitis of long head of biceps brachii of right shoulder (Acute) Fatigue (Acute) Joint ache (Acute) Instability of right shoulder joint (Acute) Insomnia (Acute) Migraine headache with aura (Acute) Medical History Multiple benign nevi (~07/2024) 07/20/24 Dermatology Solar lentigo (~07/2024) 07/20/24 Dermatology History of bipolar disorder History of shingles 10/2020 Asthma new dx January 2020 No significant past medical history Surgical History S/P bilateral inguinal hernia repair Family History Mother Anxiety Migraine COPD (chronic obstructive pulmonary disease) Father Anxiety Paternal Grandfather Lung cancer Social History Smoking/Tobacco Use Status: Never Smokeless tobacco user: other (THC) Smoking risk assessment performed?: Yes Alcohol Intake: current Alcohol Intake frequency: holidays/special occasions only Alcohol type: beer and hard liquor Drug use: Daily Substance use type: marijuana Counseling given: No Caregiver/Support person: No Household members: none Housing: apartment Number of Children: 0 Communication Needs: Corrective Lenses 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 [employer] Current 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: male How often do you talk on the phone with friends or family?: three or more times per week How often do you get together with friends or relatives?: three or more times per week Panel score (0-1 are the most socially isolated patients): 1 What type of physical activity do you participate in: irregular exercise and other Details: Go to Gym 3x/week Duration: > 90 minutes/day Frequency: 3-4 times per week Seatbelt use: always Water heater temp set <120 deg: Yes Working smoke detector in home: Yes Fire extinguisher in home: Yes Carbon monox detector in home: Yes Firearms in home: No Do you feel safe at home: Yes Do you feel safe in your relationship?: Yes
--- NOTE | 2025-06-17 10:41 | PDOC.CMDIS ---
Date of service: 06/17/25 Time of Service: 10:41 LACE Index Scoring Tool Questions: Length of Stay (in days): 1 Was the patient admitted via the E.D.?: Yes E.D. Visits: 2 Answers: Total Score: 6 Risk of Readmission: Low Risk Care Management Discharge Plan Reason for Hospitalization: Hypoglycemia Discharge Plan: Jed is being discharged home today with no new services indicated. It is recommended he follow up with his PCP and continue per his plan of care. Jed will be transported via private vehicle. Patient/Family Education Needs: Review discharge instructions, activity, limitations, and plan of care. Discuss ask me three.
[2025-06-17 11:32] VITALS: BP 126/78; PULSE 79; RESP 15; TEMP 36.6; O2SAT 96
--- NOTE | 2025-06-17 15:26 | DSE_ITS ---
Date of service: 06/17/25 Time of Service: 15:26 DS: Diagnosis Discharge Diagnosis (1) Hypoglycemia: Status: Acute (2) Bipolar 1 disorder: Status: Chronic (3) Migraine headache without aura: Status: Chronic Discharge Plan Disposition Patient Disposition: Home Condition: Improving Discharge Details Reason For Visit: Hypoglycemia Admit Date/Time: 06/16/25 21:42 Admit Provider: Troy Vizcaino Attending Provider: Troy Vizcaino Primary Care Provider: Edel Abdalla Hospital Course Hospital Course: This 29-year-old male patientwith a PMHx of migraine headache, Ehler -Danlos syndrome, Asthma presented to the ED on 06/16/25 for evaluation of nausea shakiness dizziness sweating with concerns for hypoglycemia after restarting his semaglutide previous dosing for weight control reordered by PCP's office on 06/14/25 after being off for a month. The symptoms of hypoglycemia occurred within 1 hour after the subcutaneous injection. Glucose in the ED was 71-85 and 95 as per BMP remaining in the low 100's s/p IV and oral glucose. The patient was admitted for observation overnight with ongoing glucose monitoring every 4 hours. Blood sugar remained 83- 117, the patient tolerated oral intake with resolution of symptoms. The patient was hemodynacmically stable and will be discharged home with follow-up with PCP with 7 days of discharge; high dose of semaglutide discontinued. Recommendation for PCP follow-up Consider restarting semaglutide weekly SC injections at 0.25mg SC every week if needed for BMI 29.8 kg/m2 discussed with Dr. Barker Home Meds and New Rx's Prescriptions: New acetaminophen 325 mg Tablet 650 mg PO Q4H PRN PRNQty: 30 0RF ondansetron 4 mg tablet,disintegrating 4 mg PO Q8H PRNQty: 10 0RF Continued sildenafil 50 mg tablet 50 mg PO DAILY PRN (Reason: sexual activity) Qty: 30 5RF Rx Instructions: administer 30 minutes to 4 hours before activity albuterol sulfate 90 mcg/actuation HFA aerosol inhaler 2 puff IH Q4H PRN (Reason: shortness of breath or wheezing) Qty: 18 12RF cholecalciferol (vitamin D3) 4,000 unit capsule 4,000 unit PO DAILY loratadine [Claritin] 10 mg tablet 10 mg PO DAILY PRN sumatriptan succinate 100 mg tablet See Rx Instructions PO .COMPLEX Qty: 9 3RF Rx Instructions: take 1 tab at onset of headache; if no relief, may repeat 1 tab after at least 2 hrs; max = 2 tabs/24 hrs PO lurasidone [Latuda] 20 mg tablet 20 mg PO DAILY Qty: 90 2RF Rx Instructions: must administer with food (at least 350 calories) hydroxyzine HCl 25 mg tablet 25 mg PO DAILY AM Rx Instructions: Take before meals. Take with Latuda. naproxen 250 mg tablet 250 - 500 mg PO BID PRN (Reason: Moderate pain or swelling) Qty: 60 0RF Discontinued Wegovy 1 mg/0.5 mL pen injector 1 mg subcut Q7D Qty: 2 5RF Rx Instructions: Weeks 9-12 Discharge Instructions Stand Alone Forms: Nursing Discharge Form Referrals: Edel Abdalla NP [Primary Care Provider, Medicine] Referral Note: PCP office will call you to make a follow up appointment. Activity:: Activity as Tolerated Equipment/Supplies:: No Equipment Needed Diet:: As Tolerated Discharge Orders Discharge Orders: Discharge Order (Routine); Ordered 06/17/25 Ordered By: Isela Frankel DS: Summary Time Spent with Patient providing and/or coordinating discharge services: Greater than 30 minutes Status at Discharge Functional status at discharge: independent ambulation Overall status at discharge: patient is progressing back to baseline Mental Status: mental status grossly normal Speech and Movement: speech and movement normal Mood: congruent mood Affect: normal affect Exam Narrative Exam Narrative: Alert and oriented X 3 , no acute distress, no focal neurological deficit, clear lungs, heart is regular , no murmur, abdomen is non-distended soft non-tender, no CVA tenderness, moves all 4 ext. Psych Mental Status: mental status grossly normal Speech and Movement: speech and movement normal Mood: congruent mood Affect: normal affect DS: Data Vitals/I&O Vitals and I&O: Vital Signs Temperature 36.6 C 06/17/25 11:32 Temperature Source Temporal Artery Scan 06/17/25 11:32 Pulse 79 06/17/25 11:32 Pulse 75 06/16/25 22:10 Respiratory Rate 15 06/17/25 11:32 Respiratory Effort Normal 06/16/25 22:38 Respiratory Depth Normal 06/16/25 22:38 Respiratory Pattern Normal 06/16/25 22:38 Blood Pressure 126/78 06/17/25 11:32 Blood Pressure Mean 94 06/17/25 11:32 Pulse Oximetry 96 06/17/25 11:32 Oxygen Delivery Method Room Air 06/17/25 11:32 Oxygen Flow Rate 0 06/17/25 11:32 Pain Level 0 06/16/25 22:38 Intake & Output 06/16/25 06/17/25 06/17/25 23:59 11:59 23:59 Intake Total 2009 Balance 2009 Weight 91.49 kg Intake: IV 2009 Other: Urine Color Yellow Urine Appearance Clear Comment unmeasured pt has voided independantly pt has voided independently Data Completed and Pending Labs on day of discharge: Labs from last 24 hours 06/17/25 06/16/25 06:30 15:11 WBC 5.73 RBC 4.70 Hgb 13.8 Hct 41.1 MCV 87 MCH 29.4 MCHC 33.6 RDW 11.9 Plt Count 251 MPV 9.7 Sodium 141 142 Potassium 3.8 3.9 Chloride 104 103 Carbon Dioxide 31.4 31.1 Anion Gap 5.6 7.9 BUN 8 13 Creatinine 0.9 1.0 Est GFR (CKD-EPI 2020) 118.57 104.48 Glucose 89 95 Calcium 9.1 9.2 Magnesium 1.9 Total Bilirubin 0.4 0.3 AST 24 21 ALT 45 48 Alkaline Phosphatase 65 78 Total Protein 6.8 7.7 Albumin 3.6 4.2 Lipase 32 93 H PFSH All Active Problems (Updated 06/17/25 @ 08:57 by Troy Vizcaino) Hypoglycemia (Acute) Acute low back pain (Acute) Bipolar 1 disorder (Chronic) Nicole-Danlos syndrome (Acute) Bilateral knee pain (Acute) Light headed (Acute) Routine general medical examination at a health care facility (Acute) Dizzy spells (Acute) Migraine headache without aura (Chronic) Chronic headache (Acute) Encounter for screening for other viral diseases (Acute) SLAP lesion of right shoulder (Acute) Tendonitis of long head of biceps brachii of right shoulder (Acute) Fatigue (Acute) Joint ache (Acute) Instability of right shoulder joint (Acute) Insomnia (Acute) Migraine headache with aura (Acute) Medical History Multiple benign nevi (~07/2024) 07/20/24 Dermatology Solar lentigo (~07/2024) 07/20/24 Dermatology History of bipolar disorder History of shingles 10/2020 Asthma new dx January 2020 No significant past medical history Surgical History S/P bilateral inguinal hernia repair Family History Mother Anxiety Migraine COPD (chronic obstructive pulmonary disease) Father Anxiety Paternal Grandfather Lung cancer Social History Smoking/Tobacco Use Status: Never Smokeless tobacco user: other (THC) Smoking risk assessment performed?: Yes Alcohol Intake: current Alcohol Intake frequency: holidays/special occasions only Alcohol type: beer and hard liquor Drug use: Daily Substance use type: marijuana Counseling given: No Caregiver/Support person: No Household members: none Housing: apartment Number of Children: 0 Communication Needs: Corrective Lenses 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 [employer] Current 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: male How often do you talk on the phone with friends or family?: three or more times per week How often do you get together with friends or relatives?: three or more times per week Panel score (0-1 are the most socially isolated patients): 1 What type of physical activity do you participate in: irregular exercise and other Details: Go to Gym 3x/week Duration: > 90 minutes/day Frequency: 3-4 times per week Seatbelt use: always Water heater temp set <120 deg: Yes Working smoke detector in home: Yes Fire extinguisher in home: Yes Carbon monox detector in home: Yes Firearms in home: No Do you feel safe at home: Yes Do you feel safe in your relationship?: Yes Time Spent with Patient Time Spent with Patient: >85 minutes Time was spent: preparing to see the patient(eg.review tests), obtaining and/or reviewing separately otained hiistory, ordering medications,tests, procedures, referring, communicating with other health customer care manager, indepentently interpreting results, counseling the patient and care coordination
== END 2025-06-17 17:41 | disposition home or self-care (01) ==
LOC: ER 21:17 → MS 22:26
PROVIDERS: Admitting Provider Family Medicine; Emergency Provider Emergency Medicine; PCP Nurse Practitioner; Responsible Provider Nurse Practitioner Acute Care; Visit Provider Family Medicine
DX: E16.2 Hypoglycemia, unspecified (principal); F31.9 Bipolar disorder, unspecified; G43.009 Migraine without aura, not intractable, without status migrainosus; Q79.60 Ehlers-Danlos syndrome, unspecified; R42 Dizziness and giddiness; J45.909 Unspecified asthma, uncomplicated; F12.90 Cannabis use, unspecified, uncomplicated; Z79.85 Long-term (current) use of injectable non-insulin antidiabetic drugs; R11.0 Nausea
CPT/HCPCS: 00123; 36415; 36416; 80053; 82962; 83690; 85027; 93005; 96361; 96374; 99285; 83735; 85025; 93010; 99222; 99239; G0378; J2405

== ENCOUNTER 2025-08-18 13:06 | Outpatient (REF) | payer OTHER, SELFPAY | END 2025-08-18 13:07 | disposition home or self-care (01) | LOC: LBN 13:06 | DX: Z12.11 Encounter for screening for malignant neoplasm of colon (principal); R19.7 Diarrhea, unspecified | CPT/HCPCS: 82272; 83993 ==

== ENCOUNTER 2025-08-19 21:31 | Outpatient (REF) | payer OTHER, SELFPAY ==
[2025-08-19 22:24] LABS: C-Reactive Protein 0.53 mg/dL (<or=0.5); TSH (W/Ref FT4) 1.67 uIU/mL (0.36-3.74)
== END 2025-08-19 21:32 | disposition home or self-care (01) ==
LOC: LBN 21:31
DX: R19.7 Diarrhea, unspecified (principal)
CPT/HCPCS: 84443; 86140

== ENCOUNTER 2025-09-03 11:46 | Emergency (ER) | payer OTHER, SELFPAY ==
[2025-09-03 11:47] VITALS: BP 126/80; PULSE 88; RESP 18; TEMP 37.1; O2SAT 96
--- NOTE | 2025-09-03 11:53 | W.ED.GENAD ---
Discharge Plan Disposition Patient Disposition: Home Discharge Details Clinical Impression: Mild TBI (traumatic brain injury) Primary Care Provider: Cash Alarcon ED Provider: Jack Aguirre Home Meds and New Rx's Prescriptions: Continued sildenafil 50 mg tablet 50 mg PO DAILY PRN (Reason: sexual activity) Qty: 30 5RF Rx Instructions: administer 30 minutes to 4 hours before activity albuterol sulfate 90 mcg/actuation HFA aerosol inhaler 2 puff IH Q4H PRN (Reason: shortness of breath or wheezing) Qty: 18 12RF ondansetron 4 mg tablet,disintegrating 4 mg PO Q8H PRN (Reason: nausea and vomiting) Qty: 30 0RF cholecalciferol (vitamin D3) 25 mcg (1,000 unit) capsule 25 mcg PO DAILY Wegovy 0.5 mg/0.5 mL pen injector 0.5 mg subcut QWEEK Qty: 2 0RF Rx Instructions: administer weeks 5 through 8 of therapy loratadine [Claritin] 10 mg tablet 10 mg PO DAILY PRN sumatriptan succinate 100 mg tablet See Rx Instructions PO .COMPLEX Qty: 9 3RF Rx Instructions: take 1 tab at onset of headache; if no relief, may repeat 1 tab after at least 2 hrs; max = 2 tabs/24 hrs PO lurasidone [Latuda] 20 mg tablet 20 mg PO DAILY Qty: 90 2RF Rx Instructions: must administer with food (at least 350 calories) Wegovy 0.25 mg/0.5 mL pen injector 0.25 mg subcut QWEEK Qty: 2 0RF Rx Instructions: administer weeks 1 through 4 of therapy acetaminophen 325 mg Tablet 650 mg PO Q4H PRN PRNQty: 30 0RF Discharge Instructions Additional Instructions: You are seen in the emergency department for your headache. Your CAT scan showed no sign of any bleeding in your head nor any skull fractures. As we discussed you may gradually resume your activities at work. If any your normal work activities trigger your symptoms please discontinue these activities. If you have symptoms beyond 1 week please follow-up with your primary care provider. For your pain please take medications as follows: 1. Take acetaminophen (Tylenol), 1,000 mg (two 500 mg tabs) every 6 hours [2. Take ibuprofen (Advil), 400 mg every 6 hours.] Stand Alone Forms: Work Release HPI General Date/Time Provider Initiated Documentation: 09/03/25 11:53. HPI Narrative: MDM This is an overall quite well-appearing normothermic and not tachycardic 30-year-old male with head strike 10 days ago for which he underwent CT in the emergency department which was reassuring against any acute intracranial abnormalities. No tonic-clonic activity to suggest seizure so patient has no indication for EEG. In the absence of chest trauma hypoxia and chest pain my suspicion was low for pneumothorax I did not obtain a chest x-ray. No nuchal rigidity to suggest meningitis. No focal neurological deficits to suggest CVA. Patient and I discussed at length management of mild traumatic brain injury. We discussed that his symptoms worsened when he returned to work. We discussed how cognitive tasks could exacerbate symptoms and that he should gradually resume his daily activities at work. We discussed that he should work for several hours and then return home. We discussed that if this did not trigger his symptoms he should return to work and gradually increase his work schedule until he is back to baseline. We discussed at any point if he developed nausea or vomiting that he should return to the emergency department. We discussed [id number] medications for headaches. I offered ondansetron for nausea but he declined. He understood his return indications and was discharged with an empiric trial of expectant outpatient management. HPI This is a patient with a history of a concussion presenting with worsening symptoms. The patient sustained a concussion 10 days ago after falling down the stairs and hitting their head. The fall occurred due to slipping on a wet surface. The patient sought medical attention at [facility], where a CT scan was deemed unnecessary at that time. The patient reports that symptoms have progressively worsened, leading to a single episode of vomiting today. There was no bleeding, stitches, or dot required. The patient is unsure about any loss of consciousness but notes that if it occurred, it was brief. Mobility is unaffected, with no soreness in the arms or legs. Respiratory function is largely unimpaired. Additionally, the patient reports an elbow injury from the same incident but has not experienced any subsequent head trauma. The patient is not currently on any anticoagulant therapy. Exam General: Well-appearing in no acute distress speaking in complete sentences. Head: Normocephalic, atraumatic. Eye: Pupils equal reactive 4 to 3 mm. Extraocular eye movements intact. No conjunctival injection. No scleral icterus. Ear, nose, mouth, throat: Grossly normal inspection. Normal voice, handling secretions normally. Neck: Trachea midline. Cardiovascular: Well-perfused distal extremities. Respiratory: Nonlabored respiration. Gastrointestinal: Nondistended abdomen. Musculoskeletal: No edema. Moving all 4 extremities spontaneously. Skin: Normal for age and race, grossly normal temperature and turgor. No acute rash. Neurologic: Alert and appropriate, no apparent acute deficits. GCS 15. Psychiatric: Mood and manner are appropriate. Grooming and personal hygiene are appropriate. Related Data Home Medications ?Medication ?Instructions ?Recorded ?Confirmed loratadine 10 mg tablet (Claritin) 10 mg PO DAILY PRN 07/20/19 09/03/25 sildenafil 50 mg tablet 50 mg PO DAILY PRN sexual activity 07/22/23 09/03/25 #30 tabs albuterol sulfate 90 mcg/actuation 2 puff inhalation Q4H PRN 04/13/24 09/03/25 aerosol inhaler shortness of breath or wheezing #18 grams sumatriptan succinate 100 mg tablet See Rx Instructions PO .COMPLEX #9 11/16/24 09/03/25 tabs lurasidone 20 mg tablet (Latuda) 20 mg PO DAILY #90 tabs 06/14/25 09/03/25 acetaminophen 325 mg tablet 650 mg (2 x 325 mg) PO Q4H PRN PRN 06/17/25 09/03/25 #30 tabs ondansetron 4 mg disintegrating 4 mg PO Q8H PRN nausea and 07/01/25 09/03/25 tablet vomiting #30 tabs semaglutide (weight loss) 0.25 0.25 mg (0.5 mL) subcut QWEEK #2 mL 07/26/25 09/03/25 mg/0.5 mL subcutaneous pen injector (Wegovy) cholecalciferol (vitamin D3) 25 25 mcg PO DAILY 08/16/25 09/03/25 mcg (1,000 unit) capsule semaglutide (weight loss) 0.5 0.5 mg (0.5 mL) subcut QWEEK #2 mL 08/16/25 09/03/25 mg/0.5 mL subcutaneous pen injector (Wegovy) Previous Rx's ?Medication ?Instructions ?Recorded sildenafil 50 mg tablet 50 mg PO DAILY PRN sexual activity 07/22/23 #30 tabs albuterol sulfate 90 mcg/actuation 2 puff inhalation Q4H PRN 04/13/24 aerosol inhaler shortness of breath or wheezing #18 grams sumatriptan succinate 100 mg tablet See Rx Instructions PO .COMPLEX #9 11/16/24 tabs lurasidone 20 mg tablet (Latuda) 20 mg PO DAILY #90 tabs 06/14/25 acetaminophen 325 mg tablet 650 mg (2 x 325 mg) PO Q4H PRN PRN 06/17/25 #30 tabs ondansetron 4 mg disintegrating 4 mg PO Q8H PRN nausea and 07/01/25 tablet vomiting #30 tabs semaglutide (weight loss) 0.25 0.25 mg (0.5 mL) subcut QWEEK #2 mL 07/26/25 mg/0.5 mL subcutaneous pen injector (Wegovy) semaglutide (weight loss) 0.5 0.5 mg (0.5 mL) subcut QWEEK #2 mL 08/16/25 mg/0.5 mL subcutaneous pen injector (Wegovy) Allergies Allergy/AdvReac Type Severity Reaction Status Date / Time nut - unspecified Allergy Intermediate swelling Verified 09/03/25 11:51 in joints and rash diphenhydramine (From AdvReac confusion Verified 09/03/25 11:51 Benadryl) General Stated Complaint: Headache SEEMA: 3 Course Vital Signs Vital signs: Vital Signs Temperature 37.1 C 09/03/25 11:47 Pulse 88 09/03/25 11:47 Respiratory Rate 18 09/03/25 11:47 Blood Pressure 126/80 09/03/25 11:47 Pulse Oximetry 96 09/03/25 11:47 Temperature 37.1 C 09/03/25 11:47 Pulse 88 09/03/25 11:47 Respiratory Rate 18 09/03/25 11:47 Blood Pressure 126/80 09/03/25 11:47 Pulse Oximetry 96 09/03/25 11:47 Oxygen Delivery Method Room Air 09/03/25 11:47 Oxygen Flow Rate 0 09/03/25 11:47 Pain Level 4 09/03/25 11:47 Medical Decision Making Quality:SDOH Health Related Social Needs: Health related social needs inadequate housing lonely/isolated PFSH All Active Problems (Updated 09/03/25 @ 12:39 by Jack Aguirre MD) Mild TBI (traumatic brain injury) (Acute) Obesity (Chronic) Bipolar 1 disorder (Chronic) Nicole-Danlos syndrome (Acute) Bilateral knee pain (Acute) Routine general medical examination at a health care facility (Acute) Migraine headache without aura (Chronic) Encounter for screening for other viral diseases (Acute) SLAP lesion of right shoulder (Acute) Tendonitis of long head of biceps brachii of right shoulder (Acute) Fatigue (Acute) Instability of right shoulder joint (Acute) Insomnia (Acute) Migraine headache with aura (Acute) Medical History (Updated 09/03/25 @ 12:39 by Jack Aguirre MD) Light headed Multiple benign nevi (~07/2024) 07/20/24 [facility] Solar lentigo (~07/2024) 07/20/24 Dermatology History of bipolar disorder History of shingles 10/2020 Asthma new dx January 2020 No significant past medical history Surgical History S/P bilateral inguinal hernia repair Family History (Updated 08/16/25 @ 13:37 by Mee Irvin RN) Mother Anxiety Migraine COPD (chronic obstructive pulmonary disease) Depression Father Anxiety Depression Paternal Grandfather Lung cancer Heart disease Paternal Uncle Heart disease Social History (Updated 08/16/25 @ 13:36 by Mee Irvin RN) Smoking/Tobacco Use Status: Never Smokeless tobacco user: other (THC) Smoking risk assessment performed?: Yes Alcohol Intake: current Alcohol Intake frequency: holidays/special occasions only Alcohol type: beer and hard liquor Drug use: Daily Substance use type: marijuana Counseling given: No Adopted: No Caregiver/Support person: No Foster care: No Household members: none Housing: apartment Number of Children: 0 Communication Needs: Corrective Lenses Do you need help understanding health information?: Rarely 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 Pets and animals: Yes Pets and animals: cat(s) Sexually active: Yes Do you think of yourself as: bisexual Current 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: male What is your relationship status?: never How often do you talk on the phone with friends or family?: three or more times per week How often do you get together with friends or relatives?: three or more times per week Panel score (0-1 are the most socially isolated patients): 1 What type of physical activity do you participate in: walking Duration: > 90 minutes/day Frequency: daily Pat/Pentecostalism: None Special pat needs: No Seatbelt use: always Helmet use: No Drive intox or ride w/intox class b truck driver: No Water heater temp set <120 deg: Yes Working smoke detector in home: Yes Fire extinguisher in home: Yes Carbon monox detector in home: Yes Firearms in home: No Do you feel safe at home: Yes Do you feel safe in your relationship?: Yes
--- NOTE | 2025-09-03 12:00 | DI.CT_ITS ---
Exam(s) CT HEAD WO EXAM: CT HEAD WO CLINICAL HISTORY: head strike. TECHNIQUE: Imaging Protocol: Axial computed tomography images with coronal and sagittal reformatted images were created and reviewed COMPARISON: CT CT HEAD WO from 12/13/2023 FINDINGS: Ventricles and Extra axial spaces: Normal in size and morphology for the patient's age. Hemorrhage: None. Cerebral parenchyma: No evidence of acute infarct or mass. Midline shift: None. Brainstem/Cerebellum: Normal. Bones: No skull or facial fractures. Visualized Paranasal sinuses:Clear. Mastoids: Clear. Soft Tissues: Unremarkable. ORBITS: Unremarkable. PITUITARY: Not enlarged. IMPRESSION: No acute intracranial process. RADIATION DOSE DELIVERED: 985.45mGy.cm Total DLP DATA REPOSITORY: All CT scans at this facility are submitted to the National Radiology Data Registry (NRDR) Dose Index Registry (DIR) with the [employer] ([employer]). RADIATION OPTIMIZATION: All CT scans at this facility use at least one of these dose optimization techniques: automated exposure control; mA and/or kV adjustment per patient size (includes targeted exams where dose is matched to clinical indication); or iterative reconstruction.
[2025-09-03 12:45] VITALS: BP 126/80; PULSE 88; RESP 18; TEMP 37.1; O2SAT 96
== END 2025-09-03 12:43 | disposition home or self-care (01) ==
PROVIDERS: Emergency Provider Emergency Medicine
DX: S09.90XD Unspecified injury of head, subsequent encounter (principal); W19.XXXD Unspecified fall, subsequent encounter
CPT/HCPCS: 99283; 99284; 70450